=== PATIENT | female | born 1950 | race Caucasian/White ===

== ENCOUNTER → 2018-10-03 18:38 | Outpatient (CLI) | payer OTHER, SELFPAY ==
--- NOTE | 2018-10-03 18:41 | DI.RAD.S_ITS ---
PROCEDURE: XR WRIST RT MIN 3V INDICATIONS: right wrist pain TECHNIQUE: 4 views of the wrist were acquired. COMPARISON: None. FINDINGS: Bones: No fractures or dislocations. No suspicious bony lesions. There is mild degenerative joint disease at the first metacarpal joint. Scaphoid view: Scaphoid appears intact. Soft tissues: No suspicious soft tissue calcifications. Mild soft tissue swelling is noted. IMPRESSION: 1. No fracture or dislocation. If clinical symptoms persist or clinical suspicion for pathology is high, a repeat examination in 7-10 days, or advanced imaging such as CT or MRI is suggested for further evaluation. 2. Mild degenerative disease at the first carpal metacarpal joint. Dictated by: Janelle Hurley M.D. on 10/03/2018 at 18:53 Approved by: Janelle Hurley M.D. on 10/03/2018 at 18:56
== END ==
PROVIDERS: Family Provider Family Medicine; Visit Provider Physician Assistant
DX: M25.531 Pain in right wrist (principal); M18.11 Unilateral primary osteoarthritis of first carpometacarpal joint, right hand
CPT/HCPCS: 73110

== ENCOUNTER 2018-12-23 13:23 | Emergency (ER) | payer OTHER, SELFPAY ==
[2018-12-23 13:40] VITALS: BP 184/71; PULSE 51; RESP 18; TEMP 36.6; O2SAT 99; BMI 24.8
--- NOTE | 2018-12-23 13:43 | DI.RAD.S_ITS ---
PROCEDURE: XR WRIST LT MIN 3V INDICATIONS: LEFT ARM INJURY AND PAIN TECHNIQUE: 4 views of the wrist were acquired. COMPARISON: None. FINDINGS: Bones: There is a cortical irregularity and a subtle transverse lucency in the distal radial metaphysis suspicious for a nondisplaced fracture. No suspicious bony lesions. Scaphoid view: Scaphoid is intact Soft tissues: No suspicious soft tissue calcifications. IMPRESSION: 1. Suspect nondisplaced distal radial metaphyseal fracture. Dictated by: Janelle Hurley M.D. on 12/23/2018 at 14:07 Approved by: Janelle Hurley M.D. on 12/23/2018 at 14:10
--- NOTE | 2018-12-23 16:54 | DI.RAD.S_ITS ---
PROCEDURE: XR ELBOW LT MIN 3V INDICATIONS: pain distal radial fx TECHNIQUE: 3 views of the elbow were acquired. COMPARISON: None. FINDINGS: Bones: No fractures or dislocations. No suspicious bony lesions. Soft tissues: No elbow joint effusion. No suspicious soft tissue calcifications. IMPRESSION: Left elbow without acute osseous abnormalities. Dictated by: Kaiser Del Toro M.D. on 12/23/2018 at 17:27 Approved by: Kaiser Del Toro M.D. on 12/23/2018 at 17:28
--- NOTE | 2018-12-23 16:58 | ED_ITS ---
HPI - Extremity Injury (Upper) General Chief Complaint: Extremity Injury, Upper Stated Complaint: L ARM 'BROKEN' Time Seen by Provider: 12/23/18 16:47 Source: patient Mode of arrival: ambulatory Limitations: no limitations History of Present Illness HPI narrative: Patient is a 68-year-old female who tripped on a rolled up rug landing on her left wrist. She has no numbness or tingling. She does have a distal radius fracture identified on x-ray. He is able to move all of her fingers. No head injury no other injury. Related Data Home Medications Medication Instructions Recorded Confirmed furosemide 20 mg tablet 10 mg PO DAILY 10/03/18 12/23/18 magnesium 250 mg tablet 250 mg PO DAILY 10/03/18 10/03/18 pantoprazole 40 mg tablet,delayed 40 mg PO DAILY 10/03/18 12/23/18 release rifaximin 550 mg tablet 550 mg PO BID 10/03/18 12/23/18 simvastatin 40 mg tablet 40 mg PO BEDTIME 10/03/18 12/23/18 spironolactone 25 mg tablet 25 mg PO DAILY 10/03/18 12/23/18 nadolol 40 mg PO DAILY 12/23/18 12/23/18 Previous Rx's Medication Instructions Recorded diclofenac 1 % topical gel 2 gram TOP BID #100 gram 10/03/18 tramadol 50 mg PO Q6H PRN #10 tab 12/23/18 Allergies Allergy/AdvReac Type Severity Reaction Status Date / Time Penicillins Allergy Severe HIVES Verified 12/23/18 13:40 Review of Systems Review of Systems GENERAL: Denies chills,fever HEENT: Denies throat pain RESPIRATORY: Denies dyspnea, cough, wheezing CARDIOVASCULAR: Denies chest pain, palpitations GASTROINTESTINAL: Denies nausea, vomiting MUSCULOSKELETAL: See HPI SKIN: No rash, no laceration, no pruritus NEUROLOGIC: Denies weakness, dizziness, headache, numbness 8 point review of systems is negative except for those stated above and HPI PFSH Social History Smoking Status: Never smoker Social History Smoking Status: Never smoker Exam Initial Vital Signs Initial Vital Signs: Vital Signs Temperature 97.9 F 12/23/18 13:40 Pulse Rate 51 L 12/23/18 13:40 Respiratory Rate 18 12/23/18 13:40 Blood Pressure 184/71 H 12/23/18 13:40 Pulse Oximetry 99 12/23/18 13:40 GENERAL: Well-appearing, well-nourished and in no acute distress. HEAD: No sign of trauma CARDIOVASCULAR: peripheral pulses in tact, cap refill <2 sec RESPIRATORY: No respiratory distress, speaks in full sentences without difficulty EXTREMITIES: Normal range of motion, no clubbing or edema. Neurovascularly intact Left upper extremity: Pain distally minimal deformity distal radial pulse intact able to move all fingers. Some pain at elbow with pronation and supination. No clavicle shoulder abnormality. NEUROLOGICAL: Cranial nerves II through XII grossly intact. Normal gait and speech. SKIN: Warm, dry, no petechiae, no rashes or lesions. Procedures Orthopedic Splinting/Casting Injury #1: Side: left Upper Extremity Injury Location: wrist Upper Extremity Immobilizer: sugar tong splint Post splinting neuro exam: intact and no change Post splinting vascular exam: intact Placed by: Nursing Course Orders Ordered: ED Orders 12/23/18 13:43 XR wrist LT min 3V Stat 12/23/18 16:54 XR elbow LT min 3V Stat Vital Signs - 8 hr 12/23/18 13:40 12/23/18 17:36 Temperature 97.9 F Pulse Rate 51 L 55 L Respiratory Rate 18 14 Blood Pressure 184/71 H Blood Pressure [Right Arm] 196/77 H Pulse Oximetry 99 98 MDM - Extremity Injury (Upper) Imaging Data left wrist x-ray: Radiologist's impression: PROCEDURE: XR WRIST LT MIN 3V INDICATIONS: LEFT ARM INJURY AND PAIN TECHNIQUE: 4 views of the wrist were acquired. COMPARISON: None. FINDINGS: Bones: There is a cortical irregularity and a subtle transverse lucency in the distal radial metaphysis suspicious for a nondisplaced fracture. No suspicious bony lesions. Scaphoid view: Scaphoid is intact Soft tissues: No suspicious soft tissue calcifications. IMPRESSION: 1. Suspect nondisplaced distal radial metaphyseal fracture. Dictated by: Janelle Hurley M.D. on 12/23/2018 at 14:07 left elbow: Radiologist's impression: PROCEDURE: XR ELBOW LT MIN 3V INDICATIONS: pain distal radial fx TECHNIQUE: 3 views of the elbow were acquired. COMPARISON: None. FINDINGS: Bones: No fractures or dislocations. No suspicious bony lesions. Soft tissues: No elbow joint effusion. No suspicious soft tissue calcifications. IMPRESSION: Left elbow without acute osseous abnormalities. Dictated by: Kaiser Del Toro M.D. on 12/23/2018 at 17:27 Approved by: Kaiser Del Toro M.D. on 12/23/2018 at 17:28 Discharge Plan Departure Patient Disposition: Home Clinical Impression: Distal radial fracture Qualifiers: Encounter type: initial encounter Fracture type: closed Fracture morphology: other fracture Laterality: left Qualified Code(s): S52.592A - Other fractures of lower end of left radius, initial encounter for closed fracture Discharge Date/Time: 12/23/18 17:47 Interventions: ED Discharge Assessment Last Done: 12/23/18 17:46 Instructions: DI for Distal Radius Fracture Activity Restrictions/Additional Instructions: *You have been diagnosed with distal radial fracture *What to do: Keep splint on at all times. Wear sling as needed. Ice 20 this 30 min at a time. *Continue to take medications as directed Tramadol 1-2 tablets every 6 hr if needed for severe pain *Follow up with your primary care provider in 2-3 days follow up with Orthopedics, call Wednesday to schedule appointment in 1-2 weeks. *Return to ER if you should have increasing numbness, tingling, inability to move fingers or any new, worsening or concerning symptoms CONTROLLED SUBSTANCE DISCHARGE (Narcotoic/benzodiazepine/Flexeril/Phenergan) 1. You have been prescribed narcotic medications, it does have acetamin ophen/Tylenol/paracetamol in it so do not take extra Tylenol or Tylenol containing products 2. Please understand that we cannot provide further refills of narcotics, benzodiazepines or controlled substances through the ED and her pain management will need to be through your provider. 3. While on these medications you cannot drive or operate heavy machinery. 4. You cannot sign legal documents or perform any duties such as this. 5. As long as you're taking opiate pain medications he should also be taking a stool softener such as Colace, Dulcolax, MiraLAX or prune juice, to help avoid constipation. Prescriptions: New tramadol 50 mg tablet 50 mg PO Q6H PRN (Reason: pain) Qty: 10 RF: 0 No Action furosemide 20 mg tablet 10 mg PO DAILY RF: 0 magnesium 250 mg tablet 250 mg PO DAILY RF: 0 pantoprazole 40 mg tablet,delayed release (DR/EC) 40 mg PO DAILY RF: 0 rifaximin 550 mg tablet 550 mg PO BID RF: 0 spironolactone 25 mg tablet 25 mg PO DAILY RF: 0 simvastatin 40 mg tablet 40 mg PO BEDTIME RF: 0 diclofenac sodium 1 % gel 2 gram TOP BID Qty: 100 RF: 2 nadolol 40 mg tablet 40 mg PO DAILY RF: 0 Referrals: [facility] [Outside]
[2018-12-23 17:36] VITALS: BP 196/77; PULSE 55; RESP 14; O2SAT 98
== END 2018-12-23 17:47 | disposition home or self-care (01) ==
PROVIDERS: Emergency Provider Emergency Medicine; Family Provider Family Medicine
DX: S52.502A Unspecified fracture of the lower end of left radius, initial encounter for closed fracture (principal); W01.0XXA Fall on same level from slipping, tripping and stumbling without subsequent striking against object, initial encounter
CPT/HCPCS: 29125; 73080; 73110; 99283

== ENCOUNTER → 2019-04-12 10:53 | Outpatient (CLI) | payer OTHER, SELFPAY ==
[2019-04-12 12:40] LABS: Cholesterol 188 mg/dL (140-199); HDL Cholesterol 58 mg/dL (40-60); LDL Cholesterol Calculated 100 mg/dL (<100); Triglycerides 152 mg/dL (35-150)
== END ==
PROVIDERS: Family Provider Family Medicine; Visit Provider Internal Medicine Cardiovascular Disease
DX: E78.5 Hyperlipidemia, unspecified (principal)
CPT/HCPCS: 36415; 80061

== ENCOUNTER → 2019-05-05 15:06 | Outpatient (CLI) | payer OTHER, SELFPAY ==
--- NOTE | 2019-05-05 | DI.US.S_ITS ---
PROCEDURE: US CAROTID DOPPLER BI INDICATIONS: CARDIAC MURMUR TECHNIQUE: Color and pulse Doppler interrogation was performed of both carotid systems, with image documentation and velocity measurements. COMPARISON: [facility], [place], CAROTID ARTERY DOPPLER BILAT, 07/11/2012, 12:50. FINDINGS: Stenosis calculations are based on SRU (Society of Radiologists in Ultrasound) criteria. Right side: Brachial blood pressure: 137/59 mm Hg. Common carotid artery peak systolic velocity: 93 cm/sec. Internal carotid artery peak systolic velocity: 125 cm/sec. Internal carotid artery end diastolic velocity: 35 cm/sec. External carotid artery peak systolic velocity: 243 cm/sec. ICA/CCA peak systolic ratio: 1.4. Devlin scale imaging description: Moderate Percent internal carotid artery stenosis: 50-69% stenosis. Vertebral artery: Flow direction is antegrade. Left side: Brachial blood pressure: 145/63 mm Hg. Common carotid artery peak systolic velocity: 77 cm/sec. Internal carotid artery peak systolic velocity: 525 cm/sec. Internal carotid artery end diastolic velocity: 103 cm/sec. External carotid artery peak systolic velocity: 127 cm/sec. ICA/CCA peak systolic ratio: 6.8. Devlin scale imaging description: Heavy scattered plaque Percent internal carotid artery stenosis: 70% stenosis to near occlusion. Vertebral artery: Flow direction is antegrade. IMPRESSION: 1. 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 2. Progressive 50-69% right internal carotid artery stenosis which appears closer to 50%. Dictated by: Rufus Becerra [facility] Interpreted: Kuldip Montoya MD on 05/05/2019 at 16:45 Approved by: Kuldip Montoya M.D. on 05/08/2019 at 6:23
--- NOTE | 2019-05-05 | DI.ECHO.S_ITS ---
[facility]---------+ [facility] +---------+ : : [address] [place] : : : : [id number] : : : : Phone: [phone] Echocardiogram Report + + :Name: RUDDY GALVEZ Study Date: 05/05/2019 Height: 59 in : :[facility] Exam Location: IS Weight: 131 lb : : Gender: Female BSA: 1.5 m2 : :: 1950 Age: 68 yrs BP: 138/65 mmHg: :Reason For Study: MURMUR : : Performed By: Cirilo Dixon : :Referring: DILSHAD TAVAREZ : + + Interpretation Summary 1) Normal left ventricular size, wall motion, and systolic function (EF 60- 65%). 2) Normal right ventricular size and function. 3) There is moderate to severe aortic stenosis. 4) Mild to moderate mitral regurgitation and mild to moderate tricuspid regurgitation are present. 5) No prior Echo available for comparision. Procedure: A two-dimensional transthoracic echocardiogram with color flow and Doppler was performed. The study quality was technically adequate. There is no prior echocardiogram noted for this patient. The patient was in normal sinus rhythm during the exam. Left Ventricle: The left ventricle is normal in size. There is normal left ventricular wall thickness. The ejection fraction is estimated to be 60-65%. There are no focal wall motion abnormalities. Right Ventricle: The right ventricle is normal in size and function. Atria: The left atrium is moderately dilated. Right atrial size is normal. The interatrial septum is intact with no evidence for an atrial septal defect. Mitral Valve: There is mild mitral annular calcification. There is mild to moderate mitral regurgitation. Aortic Valve: The aortic valve is trileaflet. The aortic valve is moderately calcified. The peak aortic velocity is 2.57 m/sec. The aortic valve mean gradient is 17.7 mmHg. The calculated aortic valve area is 0.84 cm2. The aortic valve area is 1.0 centimeters squared by planimetry. There is moderate to severe aortic stenosis. There is trace aortic regurgitation. Tricuspid Valve: The tricuspid valve is normal in structure and function. There is mild to moderate tricuspid regurgitation. The right ventricular systolic pressure is estimated to be at least 34 mmHg based on an estimated right atrial pressure of 3 mm Hg. Pulmonic Valve: The pulmonic valve is normal in structure and function. There is trace pulmonic regurgitation. Great Vessels: The aortic root is normal size. The dimensions of the ascending aorta are normal. The pulmonary artery is normal size. The IVC is of normal diameter and collapses greater than 50% with a sniff. This suggests a low right atrial pressure of 3 mm Hg. Pericardium/ Pleura There is no pericardial effusion. There is no pleural effusion. MMode/2D Measurements & Calculations LVIDd: 4.0 cm LVOT diam: 2.0 cm LVIDs: 2.9 cm Ao root diam: 2.4 cm FS: 26.8 % Aortic Jxn: 2.1 cm EPSS: 0.57 cm asc Aorta Diam: 2.7 cm IVSd: 0.83 cm Ao Arch Diam (Prox Trans): 1.8 cm LVPWd: 0.93 cm LV langston. diameter/BSA (cm/m^2): 2.6 LV sys. diameter/BSA (cm/m^2): 1.9 LA dimension: 4.1 cm RA long axis: 4.5 cm LA A2 area: 20.3 cm2 RA area: 15.7 cm2 LA A4 area: 25.3 cm2 RA vol: 45.8 ml LA length (vol): 6.1 cm RA : 29.7 ml/m2 LA vol: 71.3 ml IVC diam: 1.6 cm LA vol index: 46.3 ml/m2 HERNAN (plan): 1.0 cm2 Doppler Measurements & Calculations Ao V2 max: 257.4 cm/sec LVOT Max Mina: 71.7 cm/sec Ao V2 mean: 204.0 cm/sec LV V1 max P.1 mmHg Ao max P.5 mmHg LV V1 VTI: 19.2 cm Ao mean P.7 mmHg HERNAN(I,D): 0.77 cm2 Ao V2 VTI: 75.4 cm HERNAN(V,D): 0.84 cm2 sev ratio: 0.25 HERNAN indexed to BSA (cm^2/m^2): 0.50 MV E max mina: 108.5 cm/sec TR max mina: 278.2 cm/sec MV A max mina: 90.0 cm/sec TR max P.0 mmHg MV E/A: 1.2 PA V2 max: 73.4 cm/sec Med Peak E' Mina: 2.8 cm/sec PA V2 mean: 58.1 cm/sec E/E' med: 38.9 PA mean P.4 mmHg Lat Peak E' Mina: 6.2 cm/sec PA pr(Accel): 42.4 mmHg E/E' lat: 17.5 PA Accel Time: 0.08 sec E/e' average: 28.2 MV dec time: 0.19 sec SVLVOT): 57.7 ml Reading Physician:10:22 PM
== END ==
PROVIDERS: Family Provider Family Medicine; PCP Family Medicine; Visit Provider Internal Medicine Cardiovascular Disease
DX: I08.3 Combined rheumatic disorders of mitral, aortic and tricuspid valves (principal); I65.23 Occlusion and stenosis of bilateral carotid arteries; R01.1 Cardiac murmur, unspecified
CPT/HCPCS: 93306; 93880

== ENCOUNTER → 2019-07-07 06:56 | Outpatient (CLI) | payer OTHER, SELFPAY ==
[2019-07-07 08:02] LABS: Alanine Aminotransferase 28 IU/L (9-52); Albumin 4.4 g/dL (3.5-5.0); Albumin Globulin Ratio 1.2 (1.0-2.8); Alkaline Phosphatase 94 U/L (38-126); Aspartate Aminotransferase 34 IU/L (14-36); BUN Creatinine Ratio 17.6 (6-22); Bilirubin Total 0.7 mg/dL (0.2-1.3); Blood Urea Nitrogen 30 mg/dL (7-17); Carbon Dioxide 28 mmol/L (22-32); Chloride 99 mmol/L (98-107); Cholesterol 192 mg/dL (140-199); Estimated Glomerular Filt Rate 29.9 mL/min (>60); Globulin 3.7 g/dL (1.7-4.1); Glucose 103 mg/dL (80-110); HDL Cholesterol 47 mg/dL (40-60); HEMOLYSIS < 15 (0-50); LDL Cholesterol Calculated 124 mg/dL (<100); Potassium 4.5 mmol/L (3.4-5.1); Sodium 137 mmol/L (137-145); Total Protein 8.1 g/dL (6.3-8.2); Triglycerides 105 mg/dL (35-150)
== END ==
PROVIDERS: PCP Family Medicine; Visit Provider Internal Medicine Cardiovascular Disease
DX: E78.5 Hyperlipidemia, unspecified (principal); K74.60 Unspecified cirrhosis of liver
CPT/HCPCS: 36415; 80053; 80061

== ENCOUNTER → 2019-08-22 08:36 | Outpatient (CLI) | payer OTHER, SELFPAY ==
[2019-08-22 09:29] LABS: BUN Creatinine Ratio 13.1 (6-22); Blood Urea Nitrogen 17 mg/dL (7-17); Calcium 9.4 mg/dL (8.4-10.2); Carbon Dioxide 28 mmol/L (22-32); Chloride 101 mmol/L (98-107); Estimated Glomerular Filt Rate 40.7 mL/min (>60); Glucose 99 mg/dL (80-110); HEMOLYSIS < 15 (0-50); Potassium 4.5 mmol/L (3.4-5.1); Sodium 136 mmol/L (137-145)
== END ==
PROVIDERS: Family Provider Family Medicine; PCP Family Medicine; Visit Provider Internal Medicine Cardiovascular Disease
DX: I10 Essential (primary) hypertension (principal)
CPT/HCPCS: 36415; 80048

== ENCOUNTER → 2019-08-24 07:39 | Outpatient (CLI) | payer OTHER, SELFPAY ==
--- NOTE | 2019-08-24 | DI.NM.S_ITS ---
PROCEDURE: NM FELICIA PERF SPECT R&S PHARM Rest and pharmacological stress myocardial perfusion SPECT with gated imaging and ejection fraction RADIOPHARMACEUTICAL: 25.2 mCi Tc-99m tetrafosmin IV at rest and 26.9 mCi Tc-99m tetrafosmin IV at peak effect of pharmacological stress. [id number] was performed. INDICATIONS: pre-op for CEA, stenosis of carotid arteries TECHNIQUE: Radiopharmaceutical was injected at peak stress test, and also at rest. SPECT images were obtained. SPECT myocardial perfusion images were displayed in short axis, horizontal long axis, and vertical long axis views. Gated images were reviewed using Upside software. COMPARISON: None. CARDIAC STRESS: A pharmacologic stress test was performed under the supervision of an attending staff, using an infusion of lexiscan. Patient did exercise for 7.0 METs but HR stayed at 70% of max predicted heart rate and study was switched to lexiscan. Hemodynamic data: There is normal blood pressure and heart rate response to pharmacologic stress. Symptoms: The patient denied anginal chest pain. Aminophylline: none EKG: Resting ECG shows sinus rhythm with mild diffuse ST depressions. No diagnostic changes of ischemia with exercise; no ectopy. FINDINGS: Raw data: There is good myocardial uptake of radiotracer. No significant motion artifacts. Left ventricle function: Gated images demonstrate normal left ventricular wall thickening. No segmental wall motion abnormalities. No transient ischemic dilation; TID is 0.91 (normal less than 1.3). Left ventricle resting end diastolic volume is 66mL. Left ventricle stress ejection fraction is 83%; normal range is above 45%. Myocardial perfusion: There is normal distribution of activity in the right and left ventricular myocardium. No fixed or reversible perfusion defects. IMPRESSION: Low risk, normal pharmaceutical nuclear stress. 1) No perfusion evidence of ischemia or infarction. 2) Normal left ventricular size, wall motion, and systolic function (EF post stress 83%). 3) No angina during the study. 4) No ECG evidence of ischemia. 5) Reduced exercise tolerance (7.0 METs). Study converted to lexiscan as onl 70% maximum predicted heart rate reached. 6) No prior nuclear stress test available for comparison. Dictated by: Aliyah Tavarez MD on 08/25/2019 at 15:14 Approved by: Aliyah Tavarez MD on 08/25/2019 at 15:18
--- NOTE | 2019-08-24 08:59 | PM.TREADMILL ---
Cardiac Stress Test Report Referral & Results Date Patient Seen: 08/24/19 Time Patient Seen: 08:30 Requesting provider: Aliyah Tavarez Indication: CAD of carotids Procedure Note: Today following both written and verbal informed consent the patient was exercised according to a standard Sunday protocol patient went for a total of 3 minutes achieving a maximum heart rate of 90. Exercise was terminated at this point because of fatigue. We converted to walking Lexiscan after it became apparent the patient would not be able to meet the target HR with exercise alone. The patient was placed on the treadmill at 1 mile an hour with no elevation and was then injected with the Imelda scan material. The Cardiolite was then immediately administered. The patient spent an additional 2-3 minutes on the treadmill before [facility] the supine position. The patient had a normal response to all infused materials. Impression: Successful Imelda protocol. Will await perfusion imaging. Please note: Actual ECG tracings can be found in the PACS system.
--- NOTE | 2019-08-24 09:30 | DI.CT.S_ITS ---
PROCEDURE: CT ANGIO NECK INDICATIONS: Occlusion and stenosis of carotid arteries TECHNIQUE: After the administration of intravenous contrast, 1.5 mm axial sections acquired from the aortic arch to the [place] of Ibrahim. Maximum intensity projection (MIP) reformats were then performed. COMPARISON: [facility], [place], [place] CAROTID DOPPLER BI, 05/05/2019, 15:47. [facility], [place], CAROTID ARTERY DOPPLER BILAT, 07/11/2012, 12:50. [facility], [place], HEAD WITHOUT CONTRAST, 07/10/2012, 12:24. FINDINGS: Image quality: Excellent. Carotid system: The great vessels demonstrate a conventional anatomy as they arise from the aortic arch. The origins of the common carotid arteries appear patent. The common carotid arteries demonstrate normal calibers and courses. There is advanced atherosclerotic irregularity with calcification seen involving bifurcation regions, left worse than right. Otherwise, there is approximately 95% stenosis seen proximally, with a long segment narrowing, as demonstrated on series 9 image 53. On the right, there is an approximately 70% stenosis seen proximally. Posterior circulation: The origins of the vertebral arteries appear patent. The more superior portions of the vertebral arteries demonstrate normal course and caliber. They join to form a normal appearing basilar artery. Soft tissues: Visualized neck soft tissues demonstrate no suspicious abnormalities. Thyroid gland demonstrates no significant CT abnormality. Bones: No suspicious bony lesions. Visualized cervical spine appears normally aligned. Mild degenerative changes are seen. IMPRESSION: There is a subtotal occlusion (approximately 95%) involving the left proximal internal carotid artery. Approximately 70% stenosis seen involving the right proximal internal carotid artery. Any quantitative stenosis measurements were performed using the NASCET criteria. Dictated by: Dimitris Vazquez M.D. on 08/24/2019 at 10:04 Approved by: Dimitris Vazquez M.D. on 08/24/2019 at 10:07
== END ==
LOC: RAD 07:39 → LAB 07:44
PROVIDERS: Family Provider Family Medicine; PCP Family Medicine; Referring Provider Student in an Organized Health Care Education/Training Program; Visit Provider Internal Medicine Cardiovascular Disease
DX: Z01.818 Encounter for other preprocedural examination (principal); I65.29 Occlusion and stenosis of unspecified carotid artery; E78.49 Other hyperlipidemia
CPT/HCPCS: 70498; 78452; 93016; 93017; 93018; A9502; J2785; Q9967

== ENCOUNTER → 2020-06-10 08:54 | Outpatient (CLI) | payer OTHER, SELFPAY ==
--- NOTE | 2020-06-10 | DI.ECHO.S_ITS ---
[facility]---------+ [facility] +---------+ : : [address] : [place] : : : : [id number] : : : : Phone: [phone]+ Echocardiogram Report + + :Name: RUDDY GALVEZ Study Date: 06/10/2020 Height: 59 in : :[facility] Weight: 135 lb : : Gender: Female BSA: 1.6 m2 : :: 1950 Age: 69 yrs BP: 125/59 mmHg: :Reason For Study: AORTIC STENOSIS : :Ordering Physician: Dilshad Morales : :[place] Performed By: Anisley Bhatti : :Referring: DILSHAD TAVAREZ : + + Interpretation Summary 1) Normal left ventricular size, wall motion, and systolic function (EF 60- 65%). 2) Normal right ventricular size and function. 3) There is moderate to severe aortic stenosis (valve area 0.8cm2, mean gradient 21mmHg, severity ratio 0.23). 4) Mild to moderate mitral regurgitation and mild to moderate tricuspid regurgitation are present. 5) Compared to the Echo done 05/05/2019, no significant change. Procedure: A two-dimensional transthoracic echocardiogram with color flow and Doppler was performed. The study quality was technically adequate. Comparison is made with the echocardiogram of 05/05/2019. The patient was in sinus bradycardia with heart rates between 64-44 bpm during the exam. Left Ventricle: The left ventricle is normal in size and wall thickness. The ejection fraction is estimated to be 60-65%. Right Ventricle: The right ventricle is normal in size and function. Atria: The left atrium is moderately dilated. The right atrium grossly appears normal in size. There is no Doppler evidence for an interatrial shunt. Mitral Valve: There is mild mitral annular calcification. There is mild to moderate mitral regurgitation. Aortic Valve: The aortic valve is moderately calcified. There is moderate to severe aortic stenosis. The peak aortic velocity is 2.9 m/sec. The aortic valve mean gradient is 21 mmHg. The calculated aortic valve area is .78 cm2. There is trace aortic regurgitation. Tricuspid Valve: The tricuspid valve is normal in structure and function. Pulmonary artery pressures cannot be estimated because of the lack of a measurable TR jet velocity but the IVC suggests a CVP of around 34 mmHg. There is mild to moderate tricuspid regurgitation. Pulmonic Valve: The pulmonic valve is not well seen, but is grossly normal. There is no pulmonic valvular regurgitation. Great Vessels: The aortic root is normal size. The ascending aorta is normal in size. The IVC is of normal diameter and collapses greater than 50% with a sniff. This suggests a low right atrial pressure of 3 mm Hg. Pericardium/ Pleura There is no pericardial effusion. There is no pleural effusion. MMode/2D Measurements & Calculations LVIDd: 3.9 cm LVOT diam: 2.0 cm LVIDs: 2.6 cm Ao root diam: 2.4 cm FS: 33.2 % asc Aorta Diam: 2.6 cm EPSS: 0.72 cm Ao Arch Diam (Prox Trans): 2.5 cm IVSd: 0.83 cm LVPWd: 0.88 cm LV langston. diameter/BSA (cm/m^2): 2.5 LV sys. diameter/BSA (cm/m^2): 1.7 LA A2 area: 20.4 cm2 RA long axis: 5.2 cm LA A4 area: 22.4 cm2 RA area: 17.1 cm2 LA length (vol): 5.8 cm RA vol: 47.9 ml LA vol: 66.4 ml RA : 30.7 ml/m2 LA vol index: 42.5 ml/m2 IVC diam: 1.3 cm RVD1 (basal): 3.1 cm TAPSE: 1.8 cm Doppler Measurements & Calculations Ao V2 max: 293.8 cm/sec LVOT Max Mina: 72.0 cm/sec Ao V2 mean: 220.7 cm/sec LV V1 max P.1 mmHg Ao max P.5 mmHg LV V1 VTI: 20.6 cm Ao mean P.9 mmHg HERNAN(I,D): 0.73 cm2 Ao V2 VTI: 89.8 cm HERNAN(V,D): 0.78 cm2 sev ratio: 0.23 HERNAN indexed to BSA (cm^2/m^2): 0.47 MV E max mina: 109.0 cm/sec TR max mina: 278.6 cm/sec MV A max mina: 95.1 cm/sec TR max P.0 mmHg MV E/A: 1.1 PA V2 max: 61.0 cm/sec Med Peak E' Mina: 3.5 cm/sec PA V2 mean: 43.5 cm/sec E/E' med: 30.8 PA mean P.83 mmHg Lat Peak E' Mina: 7.5 cm/sec PA pr(Accel): 19.1 mmHg E/E' lat: 14.5 E/e' average: 22.7 MV dec time: 0.19 sec SV(OT): 65.5 ml Reading Physician:12:22 PM
== END ==
PROVIDERS: Family Provider Family Medicine; PCP Family Medicine; Referring Provider Internal Medicine Cardiovascular Disease; Visit Provider Internal Medicine Cardiovascular Disease
DX: I08.3 Combined rheumatic disorders of mitral, aortic and tricuspid valves (principal)
CPT/HCPCS: 93306

== ENCOUNTER → 2021-09-19 09:38 | Outpatient (CLI) | payer OTHER, SELFPAY ==
--- NOTE | 2021-09-19 | DI.US.S_ITS ---
PROCEDURE: US CAROTID DOPPLER BI INDICATIONS: STENOSIS TECHNIQUE: Color and pulse Doppler interrogation was performed of both carotid systems, with image documentation and velocity measurements. COMPARISON: [facility], CT, CT ANGIO NECK, 08/24/2019, 8:26. [facility], US, CAROTID ARTERY DOPPLER BILAT, 07/11/2012, 12:50. [facility], , US CAROTID DOPPLER BI, 05/05/2019, 15:47. FINDINGS: Stenosis calculations are based on SRU (Society of Radiologists in Ultrasound) criteria. Right side: Brachial blood pressure: 106/49 mm Hg. Common carotid artery peak systolic velocity: 101 cm/sec (prior 93 cm/s). Internal carotid artery peak systolic velocity: 126 cm/sec (prior 125 cm/s). Internal carotid artery end diastolic velocity: 36 cm/sec (prior 35 cm/s). External carotid artery peak systolic velocity: 97 cm/sec (prior 243 cm/s). ICA/CCA peak systolic ratio: 1.2 (prior 1.4). Devlin scale imaging description: Mild atherosclerotic changes are seen. Percent internal carotid artery stenosis: 50-69% by velocity criteria. Vertebral artery: Flow direction is antegrade. Left side: Brachial blood pressure: 102/60 mm Hg. Common carotid artery peak systolic velocity: 141 cm/sec (prior 77 cm/s). Internal carotid artery peak systolic velocity: 132 cm/sec (prior 525 cm/s). Internal carotid artery end diastolic velocity: 40 cm/sec (prior 103 cm/s). External carotid artery peak systolic velocity: 94 cm/sec (prior 127 cm/s). ICA/CCA peak systolic ratio: 0.9 (prior 6.8). Devlin scale imaging description: Moderate atherosclerotic changes are seen. Carotid endarterectomy changes are seen. Percent internal carotid artery stenosis: 50-69% by velocity criteria. Vertebral artery: Flow direction is antegrade. IMPRESSION: Interval left carotid endarterectomy changes are seen. By velocity criteria, there is 50-69% stenosis seen involving both proximal internal carotid arteries. The true degree of stenosis is felt most likely to be at the lower end of this range on each side. Dictated by: Dimitris Vazquez M.D. on 09/19/2021 at 9:52 Approved by: Dimitris Vazquez M.D. on 09/19/2021 at 9:55
== END ==
PROVIDERS: Family Provider Family Medicine; PCP Family Medicine; Referring Provider Internal Medicine Cardiovascular Disease; Visit Provider Internal Medicine Cardiovascular Disease
DX: I65.23 Occlusion and stenosis of bilateral carotid arteries (principal)
CPT/HCPCS: 93880

== ENCOUNTER → 2021-12-01 10:59 | Outpatient (CLI) | payer OTHER, SELFPAY ==
--- NOTE | 2021-12-01 11:00 | DI.ECHO.S_ITS ---
[facility] +---------+ [facility] +---------+ : : [address] : : : : [place] : : : : [id number] : : : : Phone: [phone]---------+ Echocardiogram Report + + :Name: RUDDY GALVEZ Study Date: 12/01/2021 Height: 60 in : :[facility] ReadingLocation: Weight: 120 lb : : Gender: Female BSA: 1.5 m2 : :: 1950 Age: 71 yrs BP: 132/50 mmHg: :Reason For Study: S/P TAVR : :Ordering Physician: : :WAYNE Performed By: Doroteo Mendez : :Referring: DILSHAD TAVAREZ : + + Interpretation Summary 1) Normal left ventricular size, thickness, and systolic function (EF 55-60%) 2) The right ventricle is normal in size and function. 3) Bioprosthetic aortic valve is present and it opens well with expected gradient (mean 10mmHg). Mild - moderate perivalvular regurgitation 4) There is mild to moderate mitral regurgitation. 5) There is mild to moderate tricuspid regurgitation. 6) Compared to the Echo done 07/23/2021, stenotic aortic valve has been replaced with well functioning bioprosthetic aortic valve. Procedure: A two-dimensional transthoracic echocardiogram with color flow and Doppler was performed. The study quality was technically adequate. The subcostal views were difficult to obtain and are suboptimal in quality. Comparison is made with the echocardiogram of 07/23/2021. The patient was in normal sinus rhythm during the exam. Left Ventricle: The left ventricle is normal in size. There is borderline asymmetric left ventricular hypertrophy. The ejection fraction is estimated to be 55-60%. There are no obvious focal wall motion abnormalities noted but poor endocardial definition reduces the sensitivity for the detection of such. Right Ventricle: The right ventricle is normal in size and function. Atria: The left atrium is moderately dilated. Right atrial size is normal. There is no Doppler evidence for an interatrial shunt. Mitral Valve: The mitral valve leaflets appear mildly thickened, but open well. There is mild mitral annular calcification. There is a flat closure plane of the the mitral valve leaflets. There is mild to moderate mitral regurgitation. Aortic Valve: There is a bioprosthetic aortic valve. The peak aortic velocity is 2 m/sec. The aortic valve mean gradient is 10 mmHg. Mild - moderate perivalvular regurgitation. Tricuspid Valve: The tricuspid valve is normal. There is mild to moderate tricuspid regurgitation. The right ventricular systolic pressure is estimated to be at least 30 mmHg based on an estimated right atrial pressure of 3 mm Hg. Pulmonic Valve: The pulmonic valve leaflets are thin and pliable; valve motion is normal. There is a trace or physiologic amount of pulmonic regurgitation. Great Vessels: The ascending aorta is normal in size. The aortic arch is normal in size. The IVC is of normal diameter and collapses greater than 50% with a sniff. This suggests a low right atrial pressure of 3 mm Hg. Pericardium/ Pleura There is no pericardial effusion. There is an anterior echo-free space consistent with a fat pad. There is no pleural effusion. MMode/2D Measurements & Calculations LVIDd: 3.3 cm LVOT diam: 1.3 cm LVIDs: 2.3 cm asc Aorta Diam: 2.2 cm FS: 30.3 % Ao Arch Diam (Prox Trans): 2.1 cm IVSd: 0.70 cm LVPWd: 1.0 cm LV langston. diameter/BSA (cm/m^2): 2.2 LV sys. diameter/BSA (cm/m^2): 1.5 LA A2 area: 16.7 cm2 RA long axis: 4.2 cm LA A4 area: 20.1 cm2 LA length (vol): 5.2 cm LA vol: 54.8 ml LA vol index: 36.6 ml/m2 LVLs ap4: 5.0 cm LVLd ap2: 5.4 cm LVLs ap2: 4.8 cm TAPSE_phl: 2.0 cm Doppler Measurements & Calculations Ao V2 max: 203.0 cm/sec LVOT Max Mina: 85.5 cm/sec Ao V2 mean: 157.0 cm/sec LV V1 max P.9 mmHg Ao max P.0 mmHg LV V1 VTI: 21.6 cm Ao mean P.0 mmHg HERNAN(I,D): 0.55 cm2 Ao V2 VTI: 51.8 cm HERNAN(V,D): 0.56 cm2 sev ratio: 0.42 HERNAN indexed to BSA (cm^2/m^2): 0.37 MV E max mina: 114.0 cm/sec TR max mina: 259.3 cm/sec MV A max mina: 108.0 cm/sec TR max P.9 mmHg MV E/A: 1.1 PA V2 max: 71.1 cm/sec Med Peak E' Mina: 7.4 cm/sec PA V2 mean: 53.6 cm/sec E/E' med: 15.5 PA mean P.0 mmHg Lat Peak E' Mina: 8.3 cm/sec PA pr(Accel): 14.2 mmHg E/E' lat: 13.7 E/e' average: 14.6 MV dec time: 0.21 sec SV(LVOT): 28.7 ml AV VR_phl: 0.42 HERNAN(VTI)/BSA_phl: 0.37 MV P1/2t-pr_phl: 62.0 msec Reading Physician:12:02 PM
== END ==
PROVIDERS: Family Provider Family Medicine; PCP Family Medicine; Referring Provider Internal Medicine Cardiovascular Disease; Visit Provider Internal Medicine Cardiovascular Disease
DX: Z95.2 Presence of prosthetic heart valve (principal); I08.3 Combined rheumatic disorders of mitral, aortic and tricuspid valves
CPT/HCPCS: 93306

== ENCOUNTER 2022-06-15 08:30 | Outpatient (RCR) | payer OTHER, SELFPAY | END 2022-06-15 12:30 | LOC: CAR 08:30 | PROVIDERS: Family Provider Family Medicine; PCP Family Medicine; Referring Provider Internal Medicine Cardiovascular Disease; Visit Provider Internal Medicine Cardiovascular Disease | DX: Z95.2 Presence of prosthetic heart valve (principal) | CPT/HCPCS: 93798 ==

== ENCOUNTER → 2023-04-28 11:34 | Outpatient (CLI) | payer OTHER, SELFPAY ==
--- NOTE | 2023-04-28 | DI.US.S_ITS ---
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 COMPARISON: [facility], , CAROTID DOPPLER BI, 09/19/2021, 9:44. FINDINGS: Stenosis calculations are based on SRU (Society of Radiologists in Ultrasound) criteria. Right side: Brachial blood pressure: 130/47 mm Hg. Common carotid artery peak systolic velocity: 98 cm/sec. Internal carotid artery peak systolic velocity: 180 cm/sec, compared to 126 centimeters/second. Internal carotid artery end diastolic velocity: 41 cm/sec. External carotid artery peak systolic velocity: 153 cm/sec. ICA/CCA peak systolic ratio: 1.9 . Devlin scale imaging description: Moderate plaque at the bifurcation Percent internal carotid artery stenosis: 50-69% stenosis . Vertebral artery: Flow direction is antegrade. Left side: Brachial blood pressure: 115/51 mm Hg. Common carotid artery peak systolic velocity: 157 cm/sec. Internal carotid artery peak systolic velocity: 125 cm/sec., compared to 132 centimeters/second Internal carotid artery end diastolic velocity: 21 cm/sec. External carotid artery peak systolic velocity: 143 cm/sec. ICA/CCA peak systolic ratio: 0.8 . Devlin scale imaging description: Moderate plaque at bifurcation Percent internal carotid artery stenosis: 50-60% stenosis . Vertebral artery: Flow direction is antegrade. IMPRESSION: 50-69% stenosis of the internal carotid arteries bilaterally. Although stenosis range is unchanged, there has been notable interval increased velocity on the right. Dictated by: Celena Winn M.D. on 04/28/2023 at 21:34 Approved by: Celena Winn M.D. on 04/28/2023 at 21:35
== END ==
PROVIDERS: Family Provider Family Medicine; PCP Family Medicine; Referring Provider Internal Medicine Cardiovascular Disease; Visit Provider Internal Medicine Cardiovascular Disease
DX: I65.23 Occlusion and stenosis of bilateral carotid arteries (principal)
CPT/HCPCS: 93880

== ENCOUNTER 2023-07-26 15:55 | Emergency (ER) | payer OTHER, SELFPAY ==
[2023-07-26 16:02] VITALS: BP 172/72; PULSE 70; RESP 20; TEMP 36.8; O2SAT 99; BMI 24.2
--- NOTE | 2023-07-26 16:02 | DI.CT.S_ITS ---
PROCEDURE: CT HEAD/BRAIN WO CON INDICATIONS: Fall not on blood thinners but has head LAC TECHNIQUE: Noncontrast 4.5 mm thick angled axial sections acquired from the foramen magnum to the vertex, with coronal and sagittal reformats. For radiation dose reduction, the following was used: automated exposure control, adjustment of mA and/or kV according to patient size. COMPARISON: [facility], CT, HEAD WITHOUT CONTRAST, 07/10/2012, 12:24. FINDINGS: Image quality: Excellent. CSF spaces: Basal cisterns are patent. No extra-axial fluid collections. The ventricles are symmetric in size and shape. Brain: No intracranial bleeds or masses. There is cerebral volume loss for age, with resultant ventricular and sulcal prominence. There are periventricular and deep white matter chronic small vessel ischemic changes. There is intracranial internal carotid artery atherosclerosis. Skull and face: Calvarium and visualized facial bones appear intact, without suspicious lesions. Lens replacements. Frontal scalp contusion. No underlying fracture. Sinuses: Visualized sinuses and mastoids are clear. IMPRESSION: No acute intracranial abnormalities. Dictated by: Ryan Veronica M.D. on 07/26/2023 at 16:52 Approved by: Ryan Veronica M.D. on 07/26/2023 at 16:53
--- NOTE | 2023-07-26 16:02 | DI.CT.S_ITS ---
PROCEDURE: CT CERVICAL SPINE WO CON INDICATIONS: fall TECHNIQUE: Noncontrast 3 mm thick sections acquired from the skull base to the T4 level. Sagittal and coronal reformats were then constructed. For radiation dose reduction, the following was used: automated exposure control, adjustment of mA and/or kV according to patient size. COMPARISON: None. FINDINGS: Image quality: Excellent. Bones: No fractures or dislocations. Decreased osseous mineralization. Mild multilevel degenerative changes of the cervical spine. Visualized superior ribs are intact. Soft tissues: Prevertebral soft tissues are normal in thickness. No paravertebral hematomas. No apical pneumothoraces. Atherosclerotic vascular calcifications. IMPRESSION: No acute fracture or traumatic listhesis. Dictated by: Ryan Veronica M.D. on 07/26/2023 at 16:54 Approved by: Ryan Veronica M.D. on 07/26/2023 at 16:55
--- NOTE | 2023-07-26 16:02 | DI.RAD.S_ITS ---
PROCEDURE: XR THORACIC SPINE 3V INDICATIONS: Midthoracic back pain after fall TECHNIQUE: 3 views of the thoracic spine were acquired. COMPARISON: CT 11/23/2022. FINDINGS: Bones: Diffusely decreased osseous mineralization. Redemonstration of compression deformities involving the T10 and T12 vertebral bodies as well as the upper lumbar spine vertebral bodies. Mild compression overly the T5 vertebral body that was not seen on CT from 11/23/2022 No suspicious bony lesions. 12 pairs of ribs are noted, and appear intact where visualized. Multilevel degenerative changes with disc height loss, endplate sclerosis and marginal spurring. Soft tissues: No paravertebral stripe thickening. Atherosclerotic vascular calcifications. IMPRESSION: 1. Mild compression deformity of T5 which is new compared to 11/23/2022. Recommend correlation with point tenderness. MRI can be obtained if clinically indicated. 2. Redemonstration of other lower thoracic and upper lumbar compression deformities. 3. Multilevel degenerative changes of the thoracic spine. Dictated by: Ryan Veronica M.D. on 07/26/2023 at 16:48 Approved by: Ryan Veronica M.D. on 07/26/2023 at 16:51
--- NOTE | 2023-07-26 16:04 | ED_ITS ---
HPI - General Adult General Chief complaint: Fall Stated complaint: Fall Time Seen by Provider: 07/26/23 15:56 Source: patient and EMS Mode of arrival: EMS Limitations: no limitations History of Present Illness HPI narrative: Patient is a 73-year-old female who is here for evaluation of injuries that she sustained after falling off the toilet. Patient states she did have alcohol to drink this afternoon. It seems to be baseline for her. She is unsure exactly how she fell but she was getting up off the toilet she fell forward and hitting the top of her head on the bathtub. Initially there was reported to be no loss of consciousness but now the patient thinks that maybe she lost consciousness for a short period of time. She reports no other injuries from the event. She is no neck pain. She does have some thoracic back pain. She is not on blood thinners. She is alert and oriented. She actually ambulated out of her house to the ambulance. Related Data Home Medications Medication Instructions Recorded Confirmed furosemide 20 mg tablet 10 mg PO DAILY 10/03/18 12/23/18 magnesium 250 mg tablet 250 mg PO DAILY 10/03/18 10/03/18 pantoprazole 40 mg tablet,delayed 40 mg PO DAILY 10/03/18 12/23/18 release rifaximin 550 mg tablet 550 mg PO BID 10/03/18 12/23/18 simvastatin 40 mg tablet 40 mg PO BEDTIME 10/03/18 12/23/18 spironolactone 25 mg tablet 25 mg PO DAILY 10/03/18 12/23/18 nadolol 40 mg tablet 40 mg PO DAILY 12/23/18 12/23/18 Previous Rx's Medication Instructions Recorded diclofenac sodium 1 % topical gel 2 gram topical BID #100 grams 10/03/18 tramadol 50 mg tablet 50 mg PO Q6H PRN pain #10 tabs 12/23/18 Allergies Allergy/AdvReac Type Severity Reaction Status Date / Time Penicillins Allergy Severe HIVES Verified 12/23/18 13:40 Review of Systems Constitutional Constitutional: Reports system reviewed and no additional complaints, except as documented Musculoskeletal Musculoskeletal: Reports system reviewed and no additional complaints, except as documented Integumentary/Breasts Skin/Breast: Reports system reviewed and no additional complaints, except as documented Neurologic Neurologic: Reports system reviewed and no additional complaints, except as documented Hematologic/Lymphatic On Anticoagulants: No Patient History Social History Smoking Status: Never smoker Smoking Status: Never smoker Substance Use Type: does not use Exam Initial Vital Signs Initial Vital Signs: Vital Signs Temperature 98.3 F 07/26/23 16:02 Pulse Rate 70 07/26/23 16:02 Respiratory Rate 20 07/26/23 16:02 Blood Pressure 172/72 H 07/26/23 16:02 Pulse Oximetry 99 07/26/23 16:02 Oxygen Delivery Method Room Air 07/26/23 16:02 Const General: cooperative and comfortable HENMT Head: laceration Mouth: oral mucosae normal Resp Effort & Inspection: normal respiratory effort Auscultation: clear to auscultation bilaterally Cardio Rate: regular rate Rhythm: regular rhythm Back/Spine/Pelvis Back: No CVA tenderness Cervical Spine: No cervical spinal tenderness Thoracic/Lumbar Spine: thoracic spinal tenderness (Midthoracic tenderness) Skin Other: Laceration to top of scalp. Neuro General: patient alert, patient awake, patient oriented x3 and moves all extremities Speech: speech normal Extrem General: normal to inspection and capillary refill normal Procedures Laceration Repair Laceration 1: Site: scalp Size (cm): 1 Description: linear Depth: simple, single layer Local Anesthetic: lidocaine 1% and with epi Amount of anesthesia used (mL): 3 Skin layer closed with: latoya Course Orders Ordered: ED Orders 07/26/23 16:02 CT cervical spine wo con Stat CT head/brain wo con Stat XR thoracic spine 3V Stat Discontinued Medications Lidocaine/Epinephrine (Lidocaine 2% W/Epi Inj) 20 ml INJ INTRA-OP ONE Stop: 07/26/23 15:57 Last Admin: 07/26/23 16:22 Dose: 20 ml Vital Signs Vital signs: Vital Signs - 8 hr 07/26/23 16:02 Temperature 98.3 F Pulse Rate 70 Respiratory Rate 20 Blood Pressure 172/72 H Pulse Oximetry 99 Oxygen Delivery Method Room Air Medical Decision Making Imaging Data x ray: Radiologist's Impression: PROCEDURE:? XR THORACIC SPINE 3V ? INDICATIONS:? Midthoracic back pain after fall ? TECHNIQUE:? 3 views of the thoracic spine were acquired.? ? COMPARISON:? CT 11/23/2022. ? FINDINGS:? ? Bones:? Diffusely decreased osseous mineralization.? Redemonstration of compression deformities involving the T10 and T12 vertebral bodies as well as the upper lumbar spine vertebral bodies.? Mild compression overly the T5 vertebral body that was not seen on CT from 11/23/2022? No suspicious bony lesions.? 12 pairs of ribs are noted, and appear intact where visualized.? Multilevel degenerative changes with disc height loss, endplate sclerosis and marginal spurring.? ? Soft tissues:? No paravertebral stripe thickening.? Atherosclerotic vascular calcifications. ? ? IMPRESSION:? ? 1. Mild compression deformity of T5 which is new compared to 11/23/2022.? Recommend correlation with point tenderness.? MRI can be obtained if clinically indicated. 2. Redemonstration of other lower thoracic and upper lumbar compression deformities. 3. Multilevel degenerative changes of the thoracic spine. CT scan - head: Radiologist's Impression: PROCEDURE:? CT HEAD/BRAIN WO CON ? INDICATIONS:? Fall not on blood thinners but has head LAC ? TECHNIQUE:? Noncontrast 4.5 mm thick angled axial sections acquired from the foramen magnum to the vertex, with coronal and sagittal reformats.? For radiation dose reduction, the following was used:? automated exposure control, adjustment of mA and/or kV according to patient size.? ? COMPARISON:? [facility], CT, HEAD WITHOUT CONTRAST, 07/10/2012, 12:24. ? FINDINGS:? Image quality:? Excellent.? ? CSF spaces:? Basal cisterns are patent.? No extra-axial fluid collections.? The ventricles are symmetric in size and shape.? ? Brain:? No intracranial bleeds or masses.? There is cerebral volume loss for age, with resultant ventricular and sulcal prominence.? There are periventricular and deep white matter chronic small vessel ischemic changes.? There is intracranial internal carotid artery atherosclerosis.? ? Skull and face:? Calvarium and visualized facial bones appear intact, without suspicious lesions.? Lens replacements.? Frontal scalp contusion.? No underlying fracture. ? Sinuses:? Visualized sinuses and mastoids are clear.? ? IMPRESSION:? No acute intracranial abnormalities. CT - cervical spine: Radiologist's Impression: PROCEDURE:? CT CERVICAL SPINE WO CON ? INDICATIONS:? fall ? TECHNIQUE:? Noncontrast 3 mm thick sections acquired from the skull base to the T4 level.? Sagittal and coronal reformats were then constructed.? For radiation dose reduction, the following was used:? automated exposure control, adjustment of mA and/or kV according to patient size.? ? COMPARISON:? None. ? FINDINGS:? Image quality:? Excellent.? ? Bones:? No fractures or dislocations.? Decreased osseous mineralization.? Mild multilevel degenerative changes of the cervical spine.? Visualized superior ribs are intact.? ? Soft tissues:? Prevertebral soft tissues are normal in thickness.? No paravertebral hematomas.? No apical pneumothoraces.? Atherosclerotic vascular calcifications. ? ? IMPRESSION:? ? No acute fracture or traumatic listhesis. MDM Narrative Medical decision making narrative: You can shower like normal. Be c areful when your combing her hair has there are latoya She does have a compression fracture at T5 where she is having some discomfort to palpation. She was neurovascularly intact. Head CT and cervical spine CT unremarkable. Her head like was closed as described above. Will discharge patient home with care instructions and return precautions. She was informed of the injuries noted on the radiologic studies. She was. She expressed understanding and agreement. Discharge Plan Departure Patient Disposition: Home Clinical Impression: Laceration of scalp, Forehead contusion, Compression fracture of T5 vertebra Instructions: Vertebral Compression Fracture, DI for Laceration Repair -- Stuart Activity Restrictions/Additional Instructions: You can continue to take all of your medications as directed. You can shower like normal. You do have latoya in your scalp that will need to be removed in approximately 7-10 days. You can go to your primary doctor in the walk-in clinic for this. Return to the emergency department for new or worsening symptoms Prescriptions: No Action furosemide 20 mg tablet 10 mg PO DAILY magnesium 250 mg tablet 250 mg PO DAILY pantoprazole 40 mg tablet,delayed release (DR/EC) 40 mg PO DAILY rifaximin 550 mg tablet 550 mg PO BID spironolactone 25 mg tablet 25 mg PO DAILY simvastatin 40 mg tablet 40 mg PO BEDTIME diclofenac sodium 1 % gel 2 gram TOP BID Qty: 100 2RF Rx Instructions: apply to single wrist nadolol 40 mg tablet 40 mg PO DAILY tramadol 50 mg tablet 50 mg PO Q6H PRN (Reason: pain) Qty: 10 0RF Referrals: Tanya Escalante MD [Primary Care Provider] - Stand Alone Forms: Patient Portal/API
[2023-07-26] MEDS: LIDOCAINE 2% W/EPI INJ 20 ML INJ (16:22)
== END 2023-07-26 17:38 | disposition home or self-care (01) ==
PROVIDERS: Emergency Provider Emergency Medicine; Family Provider Family Medicine; PCP Family Medicine
DX: S01.01XA Laceration without foreign body of scalp, initial encounter (principal); S00.83XA Contusion of other part of head, initial encounter; S22.059A Unspecified fracture of T5-T6 vertebra, initial encounter for closed fracture; W18.12XA Fall from or off toilet with subsequent striking against object, initial encounter
CPT/HCPCS: 12001; 70450; 72072; 72125; 99283; 99284

== ENCOUNTER 2023-09-16 06:59 | Emergency (ER) | payer OTHER, SELFPAY ==
[2023-09-16] VITALS (18 sets, daily range): BP systolic 101–199; BP diastolic 54–78; PULSE 60–72; RESP 12–22; TEMP 36.4; O2SAT 94–98; BMI 24.2
--- NOTE | 2023-09-16 07:10 | ED_ITS ---
HPI - Fall General Chief Complaint: Fall Stated Complaint: GLF Time Seen by Provider: 09/16/23 07:04 Source: patient, EMS, RN notes reviewed and old records reviewed Mode of arrival: EMS Limitations: no limitations History of Present Illness HPI Narrative: 73-year-old female with history of prior stroke/TIA, valve replacement, dyslipidemia, chronic liver failure with complaint of possible fall last night. Patient does not recall falling. She reportedly fell or ended up on the floor around 6:30 p.m. was assisted off of the floor around 9:30 p.m. by a family member who found her. Patient does not recall she says she has had falls recently. She has bruising on her forehead, complaints of pain over her right ribs and left ankle. She notes she had a fall with compression fracture in her back recently and states that feels the same. Patient denies any blood thinners. She does not recall how she fell or ended up on the floor. She denies any headache, she states no neck or midline back pain unless touched. She denies any shortness of breath. She has some right rib pain. Denies any vomiting but did have nausea in route with EMS. Denies any new urinary symptoms but states she normally wears briefs. She states she did have a bowel movement in her brief the way here today. She denies any black or bloody stools. She states no weakness in her extremities or numbness or tingling. She notes her left ankle is quite painful but has discomfort in both ankles knees. Patient is unsure of her home medications. She states she is allergic to penicillin. She states she did have a valve replacement in the past. Denies any tobacco, current alcohol or recreational drugs. She states she lives independently but has family around. Patient received 4 mg of Zofran and 25 mcg of fentanyl EN route. Related Data Home Medications Medication Instructions Recorded Confirmed furosemide 20 mg tablet 10 mg PO DAILY 10/03/18 12/23/18 magnesium 250 mg tablet 250 mg PO DAILY 10/03/18 10/03/18 pantoprazole 40 mg tablet,delayed 40 mg PO DAILY 10/03/18 12/23/18 release rifaximin 550 mg tablet 550 mg PO BID 10/03/18 12/23/18 simvastatin 40 mg tablet 40 mg PO BEDTIME 12/10/18 03/01/19 spironolactone 25 mg tablet 25 mg PO DAILY 10/03/18 12/23/18 nadolol 40 mg tablet 40 mg PO DAILY 12/23/18 12/23/18 Previous Rx's Medication Instructions Recorded diclofenac sodium 1 % topical gel 2 gram topical BID #100 grams 10/03/18 tramadol 50 mg tablet 50 mg PO Q6H PRN pain #10 tabs 12/23/18 nitrofurantoin 100 mg PO Q12H 5 days #10 caps 09/16/23 monohydrate/macrocrystals 100 mg capsule (Macrobid) ondansetron 4 mg disintegrating 4 mg PO Q6H PRN nausea and 09/16/23 tablet vomiting #10 tabs oxycodone 5 mg tablet 5 mg PO Q6H PRN pain #14 tabs 09/16/23 Allergies Allergy/AdvReac Type Severity Reaction Status Date / Time Penicillins Allergy Severe HIVES Verified 12/23/18 13:40 Review of Systems Review of Systems ROS Unobtainable: All systems reviewed & are unremarkable except as noted in HPI and below Patient History Social History Smoking Status: Never smoker Smoking Status: Never smoker alcohol intake frequency: a few times a week Alcohol type: hard liquor Substance Use Type: does not use Exam Narrative Exam Narrative: GEN: Patient appears in mild distress. HEAD: Patient has hematoma on the right forehead no raccoon/White sign. NECK: Nontender, painless range of motion, trachea midline , Nexus criteria, no midline line tenderness, distracting injury, altered mental status, neuro deficit, unsure about recent EtOH. EYES: PERRLA, EOMI ENT: External inspection normal other than above, trachea is midline, TM's are normal no hemotypanum, Nares are clear, no septal hematoma, no dental or oral injury, airway is normal and with normal occlusion, No bony tenderness RESP: Chest is right lateral ribs 7 8 region are tender and has symmetric movement, no ecchymosis, breath sounds are normal no crackles, wheezes or rales CVS: Heart sounds are normal, no murmur noted, No JVD. ABG/GI: Nontender, soft, normal bowel sounds, no distention, no organomegaly, pelvic rock is negative NEURO: Oriented AOx3, neuro is grossly intact, sensation and motor is normal all 4 extremities moving, cranial nerves II through XII are intact, GCS is 15 PSYCH: Normal mood and affect SKIN: Intact, warm and dry, no crepitus and without decubitus, patient has a small amount of bruising over the right scapula. BACK: Positive for T5-6 mild CVA tenderness, no vertebral tenderness, no step- off's, no crepitus, no pain with range of motion. EXT: Left ankle is without deformity but swollen, tender over the lateral medial malleoli with some slight inversion of the foot, left knee, hip and right lower extremity are nontender with full range of motion of both lower extremities. No upper extremity tenderness, normal range of motion. Hips are nontender, no pedal edema, normal color and temperature, Initial Vital Signs Initial Vital Signs: Vital Signs Pulse Rate 62 09/16/23 07:04 Pulse Oximetry 95 09/16/23 07:[address] [place] [address] Head Rule Age greater or equal to 65 years: Yes Retrograde amnesia to the event greater or equal to 30 min: Yes (doesn't recall event) GCS Gabo coma scale eye opening: Spontaneous Gabo coma scale verbal response: Orientated Gabo coma scale motor response: Obey commands Gabo coma scale total score: 15 Nexus Score for C-Spine Focal Neurologic deficit present: No Midline spinal tenderness present: No Altered level of conciousness present: No Intoxication present: No Distracting Injury Present: No Nexus Criteria for C-spine: 0 Course Orders Ordered: ED Orders 09/16/23 07:16 XR ankle LT min 3V Stat EKG-12 Lead Stat 09/16/23 07:17 CT cervical spine wo con Stat CT chest abd pel w con Stat CT head/brain wo con Stat 09/16/23 07:19 Chest [XR chest 1V] Stat 09/16/23 07:27 Consult to [facility] [place] [facility] Stat 09/16/23 07:42 Complete Blood Count AUTO DIFF Stat Comprehensive Metabolic Panel Stat Ethanol (ETOH) Stat Lactate (Lactic Acid) Stat Lipase Stat PTT Partial Thromboplastin Isaiah Stat Prothrombin Time INR Stat Troponin & CK Cardiac Panel Stat 09/16/23 10:56 UA Complete [Urinalysis and Microscopic] Stat Urine Culture Stat Urine Drug Screen, Rapid Stat Oxycodone HCl (Oxycodone Ir 5 Mg Tablet) 5 mg PO Q4HR Stop: 11/23/23 23:59 Discontinued Medications Sodium Chloride (Normal Saline 0.9%) 1,000 mls @ 1,000 mls/hr IV BOLUS ONE Stop: 09/16/23 11:31 Last Infusion: 09/16/23 11:55 Dose: Infused Documented By: Admin: 09/16/23 10:48 Dose: 1,000 mls/hr Documented By: APRIL Morphine Sulfate (Morphine 4 Mg/Ml Inj) 4 mg IV NOW ONE Stop: 09/16/23 07:41 Last Admin: 09/16/23 07:45 Dose: 4 mg Documented By: APRIL Nitrofurantoin Macrocrystals (Nitrofurantoin Er 100 Mg Capsule) 100 mg PO NOW ONE Stop: 09/16/23 11:17 Last Admin: 09/16/23 12:11 Dose: 100 mg Documented By: APRIL Nitrofurantoin Macrocrystals (Nitrofurantoin Er 100 Mg Capsule) 100 mg PO NOW ONE Stop: 09/16/23 12:45 Last Admin: 09/16/23 13:00 Dose: 100 mg Documented By: APRIL Ondansetron HCl (Ondansetron 4 Mg Odt Prepack) 1 bottle MISC DIRECTED ONE Stop: 09/16/23 12:26 Last Admin: 09/16/23 12:44 Dose: 1 bottle Documented By: APRIL Oxycodone HCl (Oxycodone Ir 5 Mg Tablet) 5 mg PO NOW ONE Stop: 09/16/23 08:51 Last Admin: 09/16/23 09:32 Dose: 5 mg Documented By: APRIL Vital Signs Vital signs: Vital Signs - 8 hr 09/16/23 08:06 09/16/23 10:24 09/16/23 10:24 Pulse Rate 68 64 Pulse Rate [Orthostatic Sitting] Pulse Rate [Orthostatic Standing] Respiratory Rate 19 Blood Pressure 117/57 L Blood Pressure [Orthostatic Sitting] Blood Pressure [Orthostatic Standing] Pulse Oximetry 97 Oxygen Delivery Method Room Air 09/16/23 10:27 09/16/23 10:27 09/16/23 10:43 Pulse Rate 66 64 Pulse Rate [Orthostatic Sitting] Pulse Rate [Orthostatic Standing] Respiratory Rate 21 Blood Pressure 101/54 L Blood Pressure [Orthostatic Sitting] Blood Pressure [Orthostatic Standing] Pulse Oximetry Oxygen Delivery Method 09/16/23 10:45 09/16/23 10:46 09/16/23 10:46 Pulse Rate 64 63 Pulse Rate [Orthostatic Sitting] Pulse Rate [Orthostatic Standing] Respiratory Rate 22 Blood Pressure 199/78 H Blood Pressure [Orthostatic Sitting] Blood Pressure [Orthostatic Standing] Pulse Oximetry 97 Oxygen Delivery Method Room Air 09/16/23 10:49 09/16/23 10:49 09/16/23 11:00 Pulse Rate 63 65 Pulse Rate [Orthostatic Sitting] Pulse Rate [Orthostatic Standing] Respiratory Rate 20 16 Blood Pressure 173/73 H Blood Pressure [Orthostatic Sitting] Blood Pressure [Orthostatic Standing] Pulse Oximetry 98 96 Oxygen Delivery Method Room Air 09/16/23 11:00 09/16/23 11:12 09/16/23 11:30 Pulse Rate 68 Pulse Rate [Orthostatic Sitting] 64 Pulse Rate [Orthostatic Standing] 66 Respiratory Rate 18 Blood Pressure 154/68 H Blood Pressure [Orthostatic Sitting] 117/57 L Blood Pressure [Orthostatic Standing] 101/54 L Pulse Oximetry 95 Oxygen Delivery Method 09/16/23 11:31 09/16/23 11:31 09/16/23 12:00 Pulse Rate 69 72 Pulse Rate [Orthostatic Sitting] Pulse Rate [Orthostatic Standing] Respiratory Rate 21 20 Blood Pressure 133/59 L Blood Pressure [Orthostatic Sitting] Blood Pressure [Orthostatic Standing] Pulse Oximetry 94 97 Oxygen Delivery Method Room Air Room Air 09/16/23 12:00 09/16/23 12:30 09/16/23 12:31 Pulse Rate 69 69 Pulse Rate [Orthostatic Sitting] Pulse Rate [Orthostatic Standing] Respiratory Rate 15 17 Blood Pressure 157/66 H Blood Pressure [Orthostatic Sitting] Blood Pressure [Orthostatic Standing] Pulse Oximetry 94 95 Oxygen Delivery Method Room Air 09/16/23 12:31 Pulse Rate Pulse Rate [Orthostatic Sitting] Pulse Rate [Orthostatic Standing] Respiratory Rate Blood Pressure 137/61 Blood Pressure [Orthostatic Sitting] Blood Pressure [Orthostatic Standing] Pulse Oximetry Oxygen Delivery Method MDM - Fall Lab Data 09/16/23 07:42 09/16/23 07:42 Labs: Lab Results 09/16/23 09/16/23 Range/Units 07:42 10:56 WBC 13.5 H (4.5-11.0) X10^3/uL RBC 3.71 L (4.0-5.2) X10^6/uL Hgb 11.7 L (12.0-16.0) g/dL Hct 34.9 L (36-46) % MCV 94.2 (80-100) fL MCH 31.6 (26-34) PG MCHC 33.6 (30-36) % RDW 15.4 H (11.6-14.8) % Plt Count 217 (150-400) X10^3/uL Neut % (Auto) 87.5 H (50-75) % Lymph % (Auto) 4.7 L (25-40) % [place] % (Auto) 6.9 (3-14) % Eos % (Auto) 0.2 L (2-4) % Baso % (Auto) 0.7 (0-2) % Neut # (Auto) 91098 H (1455-1478) /uL Lymph # (Auto) 600 L (3777-2096) /uL [place] # (Auto) 900 (0-900) /uL Eos # (Auto) 0 (0-450) /uL Baso # (Auto) 100 (0-100) /uL PT 12.3 (9.4-12.5) SECONDS INR 1.1 (0.9-1.3) APTT 25 L (25.1-36.5) SECONDS Sodium 135 L (137-145) mmol/L Potassium 4.2 (3.4-5.1) mmol/L Chloride 101 (98-107) mmol/L Carbon Dioxide 30 (22-32) mmol/L BUN 16 (7-17) mg/dL Creatinine 1.08 H (0.52-1.04) mg/dL Estimated GFR 55 L (>60) mL/min BUN/Creatinine Ratio 14.8 (6-22) Glucose 95 (80-110) mg/dL Lactate 1.4 (0.7-2.1) mmol/L Calcium 8.9 (8.4-10.2) mg/dL Total Bilirubin 0.8 (0.2-1.3) mg/dL AST 35 (14-36) IU/L ALT 21 (<35) IU/L Alkaline Phosphatase 87 (38-126) U/L Total Creatine Kinase 201 H (30-135) U/L Troponin I < 0.012 (0.01-0.034) ng/mL Total Protein 7.0 (6.3-8.2) g/dL Albumin 3.8 (3.5-5.0) g/dL Globulin 3.2 (1.7-4.1) g/dL Albumin/Globulin Ratio 1.2 (1.0-2.8) Lipase 89 (23-300) U/L Urine Color Yellow Urine Appearance Cloudy Urine pH 5.5 (4.5-8.0) Ur Specific [place] <=1.005 (1.000-1.035) Urine Protein Negative (Negative) Urine Glucose (UA) Negative (Negative) g/dL Urine Ketones Negative (NEGATIVE) Urine Occult Blood Trace-intact (Negative) Urine Nitrate Negative (Negative) Urine Bilirubin Negative (NEGATIVE) Urine Urobilinogen 0.2 (0.2) E.U./dL Ur Leukocyte Esterase 2+ H (NEGATIVE) Urine RBC 0-1/hpf (0-5/HPF) Urine WBC >100/hpf H (0-5/HPF) Ur Squamous Epith Cells 1-5 /hpf (0-5/HPF) Urine Bacteria Many (>30) H (None) Ur Culture Indicated? Specimen cultured U Opiates 300ng/mL cut Positive H (Negative) Ur Oxycodone Screen Positive H (Negative) Urine Methadone Screen Negative (Negative) Ur Barbiturates Screen Negative (Negative) U Tricyclic Antidepress Negative (Negative) Ur Phencyclidine Scrn Negative (Negative) Ur Amphetamines Screen Negative (Negative) U Methamphetamines Scrn Negative (Negative) Ur MDMA Scrn (Ecstasy) Negative (Negative) U Benzodiazepines Scrn Negative (Negative) Urine Cocaine Screen Negative (Negative) U Marijuana (THC) Screen Negative (Negative) Ethyl Alcohol < 10 ( - 10) mg/dL Imaging Data Chest x-ray: Radiologist's Impression: Close Chest X-Ray (Signed) Ricardo Mace - 09/16/[address] 09/16/23 Chest/Abdomen/Pelvis CT 09/16/[address] 09/16/23 Ankle X-Ray (Signed) Ricardo Mace - 09/16/23 Thoracic Spine X-Ray (Signed) Ryan Veronica - 07/26/[address] (Signed) Ryan Veronica - 07/26/[address] (Signed) Ryan Veronica - 07/26/23 Carotid Doppler Study (Signed) Celena Winn - 04/28/23 Echocardiogram Ultrasound (Signed) Aliyah Tavarez - 12/01/21 Carotid Doppler Study (Signed) Dimitris Vazquez - 09/19/21 Echocardiogram Ultrasound (Signed) Aliyah Tavarez - 06/10/20 Neck CTA (Signed) Dimitris Vazquez - 08/24/19 Myocardial Perfusion Scan Nuc Med (Signed) Aliyah Tavarez - 08/24/19 Echocardiogram Ultrasound (Signed) Aliyah Tavarez - 05/05/19 Carotid Doppler Study (Signed) Kuldip Montoya - 05/05/19 Elbow X-Ray (Signed) KateyKaiser - 12/23/18 Wrist X-Ray (Signed) MeiCherrie berriosburton - 12/23/18 Wrist X-Ray (Signed) Mei,Dane - 10/03/18 Launch?Image [address] [address] XRay Report Signed Patient: Deedee Romero MR#: [id number] : 1950 Acct:[id number] Age/Sex: 73 / F Date of Service: 09/16/23 Loc: ED Accession Number: [id number] Procedure: XR chest 1V Ordering Provider: Princess Mederos D.O. PROCEDURE: XR CHEST 1V INDICATIONS: fall TECHNIQUE: One view of the chest was acquired. COMPARISON: [facility], CHEST 1 VIEW, 07/10/2012, 13:36. FINDINGS: Surgical changes and devices: Prosthetic aortic valve is seen. Lungs and pleura: Lungs are clear. No pleural effusions or pneumothorax. Mediastinum: Mediastinal contours appear normal. Heart size is normal. Bones and chest wall: No suspicious bony lesions. Overlying soft tissues appear unremarkable. IMPRESSION: No acute cardiopulmonary pathology. Dictated by: Ricardo Mace M.D. on 09/16/2023 at 8:18 Approved by: Ricardo Mace M.D. on 09/16/2023 at 8:19 Extremity x-ray #1: Radiologist's Impression: [address] [address] XRay Report Signed Patient: Deedee Romero MR#: [id number] : 1950 Acct:[id number] Age/Sex: 73 / F Date of Service: 09/16/23 Loc: ED Accession Number: [id number] Procedure: XR ankle LT min 3V Ordering Provider: Princess Mederos D.O. PROCEDURE: XR ANKLE LT MIN 3V INDICATIONS: left ankle pain, bruising swelling TECHNIQUE: 3 views of the ankle were acquired. COMPARISON: None. FINDINGS: Bones: Acute fracture through medial malleolus is seen with inferior and lateral displacement at fracture site. Acute oblique fracture through distal fibular shaft/lateral malleolus is also noted with posterior and lateral displacement of fractured fragment. There is widening of both medial and lateral ankle mortise. No dislocation. No suspicious bony lesions. Soft tissues: Diffuse soft tissue swelling around ankle joint is noted. No tibiotalar joint effusion. Achilles tendon appears normal. IMPRESSION: Acute displaced bimalleolar fracture with disruption of ankle mortise and ankle soft tissue swelling as above. Dictated by: Ricardo Mace M.D. on 09/16/2023 at 8:19 Approved by: Ricardo Mace M.D. on 09/16/2023 at 8:20 CT scan - head: Radiologist's Impression: [place] [address] CT Scan Report Signed Patient: Deedee Romero MR#: [id number] : 1950 Acct:[id number] Age/Sex: 73 / F Date of Service: 09/16/23 Loc: ED Accession Number: [id number] Procedure: CT head/brain wo con Ordering Provider: Princess Mederos D.O. PROCEDURE: CT HEAD/BRAIN WO CON INDICATIONS: hematoma forehead TECHNIQUE: Noncontrast 4.5 mm thick angled axial sections acquired from the foramen magnum to the vertex, with coronal and sagittal reformats. For radiation dose reduction, the following was used: automated exposure control, adjustment of mA and/or kV according to patient size. COMPARISON: [facility], CT, CT HEAD/BRAIN WO CON, 07/26/2023, 16:23. FINDINGS: Image quality: Excellent. CSF spaces: Basal cisterns are patent. No extra-axial fluid collections. The ventricles are symmetric in size and shape. Brain: No intracranial bleeds or masses. There is cerebral volume loss for age, with resultant ventricular and sulcal prominence. There are periventricular and deep white matter chronic small vessel ischemic changes. There is intracranial internal carotid artery atherosclerosis. Skull and face: Calvarium and visualized facial bones appear intact, without suspicious lesions. Sinuses: Visualized sinuses and mastoids are clear. IMPRESSION: No acute intracranial pathology. No significant changes from previous study. No gross acute skull fracture. Dictated by: Ricardo Mace M.D. on 09/16/2023 at 8:21 Approved by: Ricardo Mace M.D. on 09/16/2023 at 8:21 CT - cervical spine: Radiologist's Impression: Close Chest X-Ray (Signed) Ricardo Mace - 09/16/[address] (Signed) Ricardo Mace - 09/16/23 Chest/Abdomen/Pelvis CT 09/16/[address] (Signed) Ricardo Mace - 09/16/23 Ankle X-Ray (Signed) Ricardo Mace - 09/16/23 Thoracic Spine X-Ray (Signed) Ryan Veronica - 07/26/[address] (Signed) Ryan Veronica - 07/26/[address] (Signed) Ryan Veronica - 07/26/23 Carotid Doppler Study (Signed) Celena Winn - 04/28/23 Echocardiogram Ultrasound (Signed) Aliyah Tavarez - 12/01/21 Carotid Doppler Study (Signed) Dimitris Vazquez - 09/19/21 Echocardiogram Ultrasound (Signed) Aliyah Tavarez - 06/10/20 Neck CTA (Signed) Dimitris Vazquez - 08/24/19 Myocardial Perfusion Scan Nuc Med (Signed) Aliyah Tavarez - 08/24/19 Echocardiogram Ultrasound (Signed) Aliyah Tavarez - 05/05/19 Carotid Doppler Study (Signed) Kuldip Montoya - 05/05/19 Elbow X-Ray (Signed) Kaiser Del Toro - 12/23/18 Wrist X-Ray (Signed) Dane Hurley - 12/23/18 Wrist X-Ray (Signed) Dane Hurley - 10/03/[address] [address] [address] Scan Report Signed Patient: Deedee Romero MR#: [id number] : 1950 Acct:[id number] Age/Sex: 73 / F Date of Service: 09/16/23 Loc: ED Accession Number: [id number] Procedure: CT cervical spine wo con Ordering Provider: Princess Mederos D.O. PROCEDURE: CT CERVICAL SPINE WO CON INDICATIONS: Trauma TECHNIQUE: Noncontrast 3 mm thick sections acquired from the skull base to the T4 level. Sagittal and coronal reformats were then constructed. For radiation dose reduction, the following was used: automated exposure control, adjustment of mA and/or kV according to patient size. COMPARISON: [facility], CT, CT CERVICAL SPINE WO CON, 07/26/2023, 16:23. FINDINGS: Image quality: Diagnostic. Patient motion is noted. Bones: No fractures or dislocations. Degenerative endplate changes and loss of disc height throughout cervical spine is seen. Visualized superior ribs are intact. Soft tissues: Prevertebral soft tissues are normal in thickness. No paravertebral hematomas. No apical pneumothoraces. IMPRESSION: 1. Slightly degraded study due to patient motion. 2. No acute cervical spine fracture or dislocation. [id number] degenerative disc disease throughout cervical spine unchanged from previous study. Dictated by: Ricardo Mace M.D. on 09/16/2023 at 8:21 Approved by: Ricardo Mace M.D. on 09/16/2023 at 8:23 CT chest/abd/pelvis: Radiologist's Impression: [place] [address] CT Scan Report Signed Patient: Deedee Romero MR#: [id number] : 1950 Acct:[id number] Age/Sex: 73 / F Date of Service: 09/16/23 Loc: ED Accession Number: [id number] Procedure: CT chest abd pel w con Ordering Provider: Princess Mederos D.O. PROCEDURE: CT CHEST ABD PEL W CON INDICATIONS: thoracic spine, fall, has hx compress fx, new rib TECHNIQUE: After the administration of intravenous contrast, 5 mm thick sections acquired from the lung apices to the symphysis. 2.5 mm thick coronal and sagittal reformats were acquired. Additional 7 mm thick coronal maximum intensity projection (MIP) reformats acquired through the lungs. Optional 10-minute delayed imaging may be performed from the kidneys to the bladder. For radiation dose reduction, the following was used: automated exposure control, adjustment of mA and/or kV according to patient size. COMPARISON: [facility], CT, CT ANGIO CHEST ABDOMEN PELVIS, 11/23/2022, 15:18. [facility], CR, XR THORACIC SPINE 3V, 07/26/2023, 16:27. [facility], MR, MR ABDOMEN LIVER PROTOCOL, 08/31/2023, 8:47. FINDINGS: Image quality: Excellent. CHEST: Lungs: No pulmonary contusions or lacerations. Dependent atelectasis in posterior aspect of bilateral lower lobes are seen. No acute airspace opacities. Mild centrilobular emphysema is also seen. No pneumothorax or hemothorax. Central and peripheral airways appear patent and normal in caliber. Mediastinum: No mediastinal hematomas. Heart size is normal. No pericardial effusion. Thoracic aorta and pulmonary arteries demonstrate normal size and enhancement. Moderate atherosclerotic calcifications are noted in thoracic aorta and coronary vessels. Prosthetic aortic valve is seen. No mediastinal or hilar adenopathy. Esophagus is normal in caliber. No hiatal hernia. Chest wall: No rib fractures. No subcutaneous emphysema. No axillary or supraclavicular adenopathy. Thyroid gland is within normal limits. ABDOMEN: Solid organs: There is no hepatic laceration. Lobulated liver contour is seen with diffusely decreased liver parenchymal density. Gallbladder contains multiple calcified stones. No gallbladder wall thickening or pericholecystic fluid. Biliary system is non-dilated. Pancreas enhances normally, without transection. Spleen is normal in size and enhancement, without lacerations. No adrenal hematomas. Chronic atrophic appearing left kidney is again seen. No evidence of renal laceration. No hydronephrosis or hydroureter. Peritoneum and bowel: No free fluid or air. Unenhanced bowel loops demonstrate normal wall thickness and caliber. Mild fecal stasis in the colon is seen. Nodes and vessels: No retroperitoneal or mesenteric adenopathy. Aorta and inferior vena cava are normal in size and enhancement. Atherosclerotic calcifications throughout abdominal aorta and bilateral iliac arteries are seen. Miscellaneous: No ventral hernias. PELVIS: Genitourinary: Bladder wall thickness is normal. Miscellaneous: No inguinal hernias or adenopathy. Bones: Pelvic ring and hip joints appear intact. Chronic appearing compression deformities are again noted involving T9, T11, T12, L1, L2, L3 and L5 vertebral bodies unchanged from prior studies. Severe anterior wedge compression deformity at T4 level is seen with near complete loss of T4 vertebral body height anteriorly further decreased compared to 07/26/2023 study. Chronic appearing deformity involving upper sternum is again seen. IMPRESSION: 1. No acute solid organ injury is seen in chest, abdomen or pelvis. 2. Dependent atelectasis in posterior aspect of bilateral lung bases. No pleural effusion or pneumothorax. 3. Cirrhotic appearing liver better evaluated on recent MRI study. Cholelithiasis without evidence of acute cholecystitis. Chronic atrophic left kidney. No hydronephrosis or hydroureter. 4. Mild constipation. No bowel obstruction. No abnormal bowel wall thickening. 5. Interval further loss of T4 vertebral body height with severe anterior wedge compression deformity compared to 07/26/2023 study. Chronic appearing compression deformities involving multiple lower thoracic and lumbar spine vertebral bodies unchanged from prior studies. No acute rib fracture. No acute pelvic fracture. Dictated by: Ricardo Mace M.D. on 09/16/2023 at 8:24 Approved by: Ricardo Mace M.D. on 09/16/2023 at 8:33 ECG Data Attestation: I personally reviewed and interpreted this ECG as follows: Prior ECG tracings: available for review Interpretation: Normal sinus rhythm rate of 60 ME 152 QRS is 78 QTC of 470. No acute ST elevation. Nonspecific change. Patient does have prior available for review from 06/30/2022. [facility] Narrative Medical decision making narrative: 73-year-old female reportedly not anticoagulated but does have a history of chronic liver failure with possible ground level fall versus other cause patient does not recall how she ended up on the ground. On the ground reportedly for 3 hours last night helped into bed by family but has persistent pain today. Has very small amount of ecchymosis on the right scapula tenderness over the right ribs has a hematoma of the right forehead as well as obvious bruising and swelling of the left ankle. Patient denies any alcohol ingestion but there is report she may still drink alcohol. She does not recall the mechanism so imaging including head CT, C-spine chest abdomen pelvis as patient also had some midline tenderness although last visit on 07/26/23 showed T5 mild compression deformity with multiple other lumbar compression deformities patient has mild tenderness over this region. Plan for imaging and lab workup for other source of a fall. Labs show leukocytosis white count 13 hemoglobin of 11, last labs were 5 years ago, platelets of 217 with leftward shift. Coags negative sodium 135 potassium 4.2 renal function appears to be at baseline or appropriate at 1.08 was as high as 1.7 and 2019. BUN 16 glucose 95 with lactate of 1.4 LFTs are negative, lipase is negative. ETOH is negative. Total CK is 201. Troponin is negative Urine studies show 2+ leukocyte esterase, no nitrates, 0-1 RBC, greater than 100 wbc's with many bacteria and 1-5 squamous epithelials. Sent for culture. Patient does appear to have UTI. We will treat with oral antibiotics. Does not appear to be septic. EKG shows no specific change to remove sinus rhythm. Head CT shows no acute change C-spine no acute cervical spine fracture. [id number] degenerative disc disease unchanged from prior. Chest abdomen pelvis dependent atelectasis posterior bases bilateral lung bases. Cirrhotic appearing liver, chronic atrophic left kidney, mild constipation. Interval loss of T4 vertebral body height severe anterior wedge compression deformity compared to July 2023 chronic appearing compression lower thoracic and lumbar spine bodies unchanged. No rib fracture no pelvic fracture. Ankle x-ray positive bimalleolar fracture. Plan for ortho boot, referral to orthopedic surgery . Patient was sat up she gets dizzy, orthostatics were positive. Was given a L of fluids and on recheck she feels much improved. She was up able to be ambulated very short distance and she feels safe for disposition. Was given a walker, orthopedic boot with toe-touch weight-bearing. Patient feels comfortable with plan was given additional dose of oral antibiotic for home this evening, pre packs were provided and script sent to be filled tomorrow. Discharge Plan Departure Patient Disposition: Home Clinical Impression: Closed compression fracture of thoracic vertebra, Acute UTI Bimalleolar ankle fracture Qualifiers: Encounter type: initial encounter Fracture type: closed Laterality: left Q ualified Code(s): S82.842A - Displaced bimalleolar fracture of left lower leg, initial encounter for closed fracture Activity Restrictions/Additional Instructions: Follow up with orthopedic surgery in the next week, call for an appointment. You have a fracture of your left ankle that is new, follow-up with orthopedic surgery to make sure this is healing appropriately. You have multiple compression fractures in your thoracic and lumbar spine, if these become more and more painful you may be a candidate for intervention. You may take oxycodone 1-2 tablets every 6 hours as needed for pain. This medication can make you sleepy do not drive, perform hazardous activities or make any major decisions while taking it. This medication will make you constipated please take a stool softener once to twice daily until stools are soft and regular. You may take Zofran 1 tablet every 6 hours as needed for nausea. Take antibiotics until completed. You have been sent home with 1 additional dose for this evening. Prescription sent to [facility] in [place]. You may toe-touch weightbear. Splint Care: Keep splint clean and dry. Elevated affected body part to decrease swelling. OK to use ice pack on the affected body part. Use for 15-20 minutes each time, for 5-6x per day. If you develop worsening pain, numbness, tingling, discoloration of the affected body part, loosen the splint by loosening the YUAN wrap, and either see your doctor for an urgent re-assessment, or return to the Emergency Department. Return to the Emergency Department for any new or worsening symptoms. Prescriptions: New oxycodone 5 mg tablet 5 mg PO Q6H PRN (Reason: pain) Qty: 14 0RF ondansetron 4 mg tablet,disintegrating 4 mg PO Q6H PRN (Reason: nausea and vomiting) Qty: 10 0RF nitrofurantoin monohyd/m-cryst [Macrobid] 100 mg capsule 100 mg PO Q12H 5 Days Qty: 10 0RF Rx Instructions: must administer with a meal/food No Action furosemide 20 mg tablet 10 mg PO DAILY magnesium 250 mg tablet 250 mg PO DAILY pantoprazole 40 mg tablet,delayed release (DR/EC) 40 mg PO DAILY rifaximin 550 mg tablet 550 mg PO BID spironolactone 25 mg tablet 25 mg PO DAILY simvastatin 40 mg tablet 40 mg PO BEDTIME diclofenac sodium 1 % gel 2 gram TOP BID Qty: 100 2RF Rx Instructions: apply to single wrist nadolol 40 mg tablet 40 mg PO DAILY tramadol 50 mg tablet 50 mg PO Q6H PRN (Reason: pain) Qty: 10 0RF Referrals: Tanya Escalante MD [Primary Care Provider] - Walter Garsia MD [Physician] - Stand Alone Forms: Patient Portal/API
--- NOTE | 2023-09-16 07:16 | DI.RAD.S_ITS ---
PROCEDURE: XR ANKLE LT MIN 3V INDICATIONS: left ankle pain, bruising swelling TECHNIQUE: 3 views of the ankle were acquired. COMPARISON: None. FINDINGS: Bones: Acute fracture through medial malleolus is seen with inferior and lateral displacement at fracture site. Acute oblique fracture through distal fibular shaft/lateral malleolus is also noted with posterior and lateral displacement of fractured fragment. There is widening of both medial and lateral ankle mortise. No dislocation. No suspicious bony lesions. Soft tissues: Diffuse soft tissue swelling around ankle joint is noted. No tibiotalar joint effusion. Achilles tendon appears normal. IMPRESSION: Acute displaced bimalleolar fracture with disruption of ankle mortise and ankle soft tissue swelling as above. Dictated by: Ricardo Mace M.D. on 09/16/2023 at 8:19 Approved by: Ricardo Mace M.D. on 09/16/2023 at 8:20
--- NOTE | 2023-09-16 07:17 | DI.CT.S_ITS ---
PROCEDURE: CT CHEST ABD PEL W CON INDICATIONS: thoracic spine, fall, has hx compress fx, new rib TECHNIQUE: After the administration of intravenous contrast, 5 mm thick sections acquired from the lung apices to the symphysis. 2.5 mm thick coronal and sagittal reformats were acquired. Additional 7 mm thick coronal maximum intensity projection (MIP) reformats acquired through the lungs. Optional 10-minute delayed imaging may be performed from the kidneys to the bladder. For radiation dose reduction, the following was used: automated exposure control, adjustment of mA and/or kV according to patient size. COMPARISON: [facility], CT, CT ANGIO CHEST ABDOMEN PELVIS, 11/23/2022, 15:18. [facility], CR, XR THORACIC SPINE 3V, 07/26/2023, 16:27. [facility], MR, MR ABDOMEN LIVER PROTOCOL, 08/31/2023, 8:47. FINDINGS: Image quality: Excellent. CHEST: Lungs: No pulmonary contusions or lacerations. Dependent atelectasis in posterior aspect of bilateral lower lobes are seen. No acute airspace opacities. Mild centrilobular emphysema is also seen. No pneumothorax or hemothorax. Central and peripheral airways appear patent and normal in caliber. Mediastinum: No mediastinal hematomas. Heart size is normal. No pericardial effusion. Thoracic aorta and pulmonary arteries demonstrate normal size and enhancement. Moderate atherosclerotic calcifications are noted in thoracic aorta and coronary vessels. Prosthetic aortic valve is seen. No mediastinal or hilar adenopathy. Esophagus is normal in caliber. No hiatal hernia. Chest wall: No rib fractures. No subcutaneous emphysema. No axillary or supraclavicular adenopathy. Thyroid gland is within normal limits. ABDOMEN: Solid organs: There is no hepatic laceration. Lobulated liver contour is seen with diffusely decreased liver parenchymal density. Gallbladder contains multiple calcified stones. No gallbladder wall thickening or pericholecystic fluid. Biliary system is non-dilated. Pancreas enhances normally, without transection. Spleen is normal in size and enhancement, without lacerations. No adrenal hematomas. Chronic atrophic appearing left kidney is again seen. No evidence of renal laceration. No hydronephrosis or hydroureter. Peritoneum and bowel: No free fluid or air. Unenhanced bowel loops demonstrate normal wall thickness and caliber. Mild fecal stasis in the colon is seen. Nodes and vessels: No retroperitoneal or mesenteric adenopathy. Aorta and inferior vena cava are normal in size and enhancement. Atherosclerotic calcifications throughout abdominal aorta and bilateral iliac arteries are seen. Miscellaneous: No ventral hernias. PELVIS: Genitourinary: Bladder wall thickness is normal. Miscellaneous: No inguinal hernias or adenopathy. Bones: Pelvic ring and hip joints appear intact. Chronic appearing compression deformities are again noted involving T9, T11, T12, L1, L2, L3 and L5 vertebral bodies unchanged from prior studies. Severe anterior wedge compression deformity at T4 level is seen with near complete loss of T4 vertebral body height anteriorly further decreased compared to 07/26/2023 study. Chronic appearing deformity involving upper sternum is again seen. IMPRESSION: 1. No acute solid organ injury is seen in chest, abdomen or pelvis. 2. Dependent atelectasis in posterior aspect of bilateral lung bases. No pleural effusion or pneumothorax. 3. Cirrhotic appearing liver better evaluated on recent MRI study. Cholelithiasis without evidence of acute cholecystitis. Chronic atrophic left kidney. No hydronephrosis or hydroureter. 4. Mild constipation. No bowel obstruction. No abnormal bowel wall thickening. 5. Interval further loss of T4 vertebral body height with severe anterior wedge compression deformity compared to 07/26/2023 study. Chronic appearing compression deformities involving multiple lower thoracic and lumbar spine vertebral bodies unchanged from prior studies. No acute rib fracture. No acute pelvic fracture. Dictated by: Ricardo Mace M.D. on 09/16/2023 at 8:24 Approved by: Ricardo Mace M.D. on 09/16/2023 at 8:33
--- NOTE | 2023-09-16 07:17 | DI.CT.S_ITS ---
PROCEDURE: CT HEAD/BRAIN WO CON INDICATIONS: hematoma forehead TECHNIQUE: Noncontrast 4.5 mm thick angled axial sections acquired from the foramen magnum to the vertex, with coronal and sagittal reformats. For radiation dose reduction, the following was used: automated exposure control, adjustment of mA and/or kV according to patient size. COMPARISON: [facility], CT, CT HEAD/BRAIN WO CON, 07/26/2023, 16:23. FINDINGS: Image quality: Excellent. CSF spaces: Basal cisterns are patent. No extra-axial fluid collections. The ventricles are symmetric in size and shape. Brain: No intracranial bleeds or masses. There is cerebral volume loss for age, with resultant ventricular and sulcal prominence. There are periventricular and deep white matter chronic small vessel ischemic changes. There is intracranial internal carotid artery atherosclerosis. Skull and face: Calvarium and visualized facial bones appear intact, without suspicious lesions. Sinuses: Visualized sinuses and mastoids are clear. IMPRESSION: No acute intracranial pathology. No significant changes from previous study. No gross acute skull fracture. Dictated by: Ricardo Mace M.D. on 09/16/2023 at 8:21 Approved by: Ricardo Mace M.D. on 09/16/2023 at 8:21
--- NOTE | 2023-09-16 07:17 | DI.CT.S_ITS ---
PROCEDURE: CT CERVICAL SPINE WO CON INDICATIONS: Trauma TECHNIQUE: Noncontrast 3 mm thick sections acquired from the skull base to the T4 level. Sagittal and coronal reformats were then constructed. For radiation dose reduction, the following was used: automated exposure control, adjustment of mA and/or kV according to patient size. COMPARISON: [facility], CT, CT CERVICAL SPINE WO CON, 07/26/2023, 16:23. FINDINGS: Image quality: Diagnostic. Patient motion is noted. Bones: No fractures or dislocations. Degenerative endplate changes and loss of disc height throughout cervical spine is seen. Visualized superior ribs are intact. Soft tissues: Prevertebral soft tissues are normal in thickness. No paravertebral hematomas. No apical pneumothoraces. IMPRESSION: 1. Slightly degraded study due to patient motion. 2. No acute cervical spine fracture or dislocation. [id number] degenerative disc disease throughout cervical spine unchanged from previous study. Dictated by: Ricardo Mace M.D. on 09/16/2023 at 8:21 Approved by: Ricardo Mace M.D. on 09/16/2023 at 8:23
--- NOTE | 2023-09-16 07:19 | DI.RAD.S_ITS ---
PROCEDURE: XR CHEST 1V INDICATIONS: fall TECHNIQUE: One view of the chest was acquired. COMPARISON: [facility], , CHEST 1 VIEW, 07/10/2012, 13:36. FINDINGS: Surgical changes and devices: Prosthetic aortic valve is seen. Lungs and pleura: Lungs are clear. No pleural effusions or pneumothorax. Mediastinum: Mediastinal contours appear normal. Heart size is normal. Bones and chest wall: No suspicious bony lesions. Overlying soft tissues appear unremarkable. IMPRESSION: No acute cardiopulmonary pathology. Dictated by: Ricardo Mace M.D. on 09/16/2023 at 8:18 Approved by: Ricardo Mace M.D. on 09/16/2023 at 8:19
[2023-09-16] MEDS: MORPHINE 4 MG/ML INJ IV (07:45)
[2023-09-16 07:53] LABS: Add Manual Diff / Slide Review NO; Basophils Absolute Auto 100 /uL (0-100); Basophils Percent Auto 0.7 % (0-2); Eosinophils Absolute Auto 0 /uL (0-450); Eosinophils Percent Auto 0.2 % (2-4); Hematocrit 34.9 % (36-46); Hemoglobin 11.7 g/dL (12.0-16.0); Lymphocytes Absolute Auto 600 /uL (1100-4500); Lymphocytes Percent Auto 4.7 % (25-40); Mean Corpuscular HGB Conc 33.6 % (30-36); Mean Corpuscular Hemoglobin 31.6 PG (26-34); Mean Corpuscular Volume 94.2 fL (80-100); Monocytes Absolute Auto 900 /uL (0-900); Monocytes Percent Auto 6.9 % (3-14); Neutrophils Absolute Auto 11800 /uL (1500-7000); Neutrophils Percent Auto 87.5 % (50-75); Platelet Count 217 X10^3/uL (150-400); Red Blood Cell Count 3.71 X10^6/uL (4.0-5.2); Red Cell Distribution Width 15.4 % (11.6-14.8); White Blood Cell Count 13.5 X10^3/uL (4.5-11.0)
[2023-09-16 07:58] LABS: INR 1.1 (0.9-1.3); Prothrombin Time 12.3 SECONDS (9.4-12.5)
[2023-09-16 08:01] LABS: PTT Partial Thromboplastin Tim 25 SECONDS (25.1-36.5)
[2023-09-16 08:03] LABS: Alanine Aminotransferase 21 IU/L (<35); Albumin 3.8 g/dL (3.5-5.0); Albumin Globulin Ratio 1.2 (1.0-2.8); Alkaline Phosphatase 87 U/L (38-126); Aspartate Aminotransferase 35 IU/L (14-36); BUN Creatinine Ratio 14.8 (6-22); Bilirubin Total 0.8 mg/dL (0.2-1.3); Blood Urea Nitrogen 16 mg/dL (7-17); Calcium 8.9 mg/dL (8.4-10.2); Carbon Dioxide 30 mmol/L (22-32); Chloride 101 mmol/L (98-107); Creatine Kinase 201 U/L (30-135); Estimated Glomerular Filt Rate 55 mL/min (>60); Ethanol (ETOH) < 10 mg/dL; Globulin 3.2 g/dL (1.7-4.1); Glucose 95 mg/dL (80-110); HEMOLYSIS < 15 (0-50); Lactate (Lactic Acid) 1.4 mmol/L (0.7-2.1); Lipase 89 U/L (23-300); Potassium 4.2 mmol/L (3.4-5.1); Sodium 135 mmol/L (137-145)
[2023-09-16 08:14] LABS: Troponin I < 0.012 ng/mL (0.01-0.034)
--- NOTE | 2023-09-16 09:30 | PC.NURSE ---
Pt states she lives at home alone in [place] at her small house with 3x dogs and 5x cats. Her bathroom is right outside her bedroom door and the kitchen is near her room. She does not have stairs at home that she uses. Pt seen here within the past 2x wweeks for a fall. Today she is uncertain exactly what happened, but she had let her dogs out and doesnt remember what happened after. She let the dogs out around 1830 yesterday and a friend came over shortly after and found her on the ground, assisting her back into bed.
[2023-09-16] MEDS: OXYCODONE IR 5 MG TABLET PO (09:32)
--- NOTE | 2023-09-16 10:45 | PC.NURSE ---
Addendum entered by Antonio Mares R.N. 09/16/23 10:59: Provider notified of patient's drop in BP. New fluids ordered. Original Note: Patient able to sit up at bedside, she stated she felt a little dizzy. BP per vitals charted. Upon standing patient did not feel worsening dizziness, BP was lower at 101/54 standing. Patient able to take a few steps with the walker and minimal weight on her left foot with ortho boot. She was able to turn and sit on the commode with stand by assist. Urine sample provided and patient able to stand up and ambulate back to bed stand by assist. Pt was nauseous while moving back to bed, but once in bed denied nausea. Pt positioned with pillows under her legs and warm blankets.
[2023-09-16] MEDS: SODIUM CHLORIDE 0.9% 1,000 ML 1000 ML IV (10:48)
[2023-09-16 11:00] LABS: Appearance Urine UA CLOUDY; Bilirubin Urine UA NEGATIVE (NEGATIVE); Color Urine UA YELLOW; Glucose Urine UA NEGATIVE (Negative); Ketones Urine UA NEGATIVE (NEGATIVE); Leukocyte Esterase Urine UA 2+ (NEGATIVE); Nitrite Urine UA NEGATIVE (Negative); Occult Blood Urine UA TRACE-INTACT (Negative); Protein Urine UA NEGATIVE (Negative); Specific Gravity Urine UA <=1.005 (1.000-1.035); Urobilinogen Urine UA 0.2 E.U./dL (0.2)
[2023-09-16 11:05] LABS: UR Morphine/Opiate cutoff 300 Positive (Negative); Ur Creatinine Normal (Normal); Ur Specific Gravity Normal (Normal); Urine Amphetamines Negative (Negative); Urine Barbiturates Negative (Negative); Urine Benzodiazepines Negative (Negative); Urine Cocaine Negative (Negative); Urine MDMA Negative (Negative); Urine Methadone Negative (Negative); Urine Methamphetamines Negative (Negative); Urine Oxycodone Positive (Negative); Urine Phencyclidine Negative (Negative); Urine Tetrahydrocannabinol Negative (Negative); Urine Tricyclic Antidepressant Negative (Negative); Urine pH Normal (Normal)
[2023-09-16 11:09] LABS: pH Urine UA 5.5 (4.5-8.0)
[2023-09-16 11:10] LABS: Bacteria Urine Many (>30); Culture Indicated Urine Specimen Cultured; RBC Urine 0-1/HPF (0-5/HPF); Squamous Epithelial Cell Urine 1-5 /HPF (0-5/HPF); WBC Urine >100/HPF (0-5/HPF)
--- NOTE | 2023-09-16 12:07 | CM.SWNOTE ---
ED CLAIM INSPECTOR Note CLAIM INSPECTOR receives consult due to patient's recent GLF today. Patient is 73 y/o female who presents to ED via EMS, a family member found her after she fell, it is reported that she was on the ground for about 3 hours. Per ankle xray patient has displaced bimalleolar fracture. Patient dx with UTI today as well. Patient's PCP is Dr. Escalante with [facility]. Patient has [employer] Medicare Advantage insurance. Patient has hx of chronic liver failure, acquired hypothryoidism and hx of thoracic vertebra fracture. CLAIM INSPECTOR enters room to meet with patient, patient presents as A/Ox4. Patient endorses she has had a lot of recent GLFs and states that she gets low blood pressure when she stands up. Patient endorses she resides alone in [place], manages ADLs independently and drives. Patient states she has several hinduism friends that check on her regularly and has a cousin and son that lives in town as well. Patient endorses she would benefit from a refrigeration houseman but does not have money to pay for it, patient endorses she has 3 dogs and 5 cats. CLAIM INSPECTOR discusses [facility] [employer] [facility] program and patient endorses agreement to referral. CLAIM INSPECTOR provides patient with senior resource guide and fall prevention class flyer that is hosting. CLAIM INSPECTOR encourages patient to f/u with PCP. CLAIM INSPECTOR calls [facility] and leaves regarding new referral for patient. Patient endorses that her cousin Dryden or friend Walter can give her a ride home upon d/c. Plan: patient to d/c to home with friend, patient to f/u with PCP, Community inside sales specialist referral in place. SUSHMA GoodrichSW
[2023-09-16] MEDS: NITROFURANTOIN ER 100 MG CAPSULE PO ×2 (12:11→13:00)
--- NOTE | 2023-09-16 12:16 | PC.NURSE ---
Patient IV fluids completed. Pt sat up in bed with legs dangling off side. Pt was initially a little lightheaded, nothing new from when I'm at home when sitting up. within 20 seconds pt states she is no longer lightheaded and is feeling better. Pt agrees that she would be safe to go home with how she is feeling now.
[2023-09-16] MEDS: ONDANSETRON 4 MG ODT PREPACK 1 BOTTLE MISC (12:44)
--- NOTE | 2023-09-16 12:45 | PC.NURSE ---
Pharmacy prepared oxycodone IR 5mg qt 4 for patient. Patient also given odt zofran prepack and antibiotics ordered and sent to her pharmacy for pickup tomorrow when they open.
== END 2023-09-16 13:02 | disposition home or self-care (01) ==
PROVIDERS: Emergency Provider Emergency Medicine; Family Provider Family Medicine; PCP Family Medicine
DX: S82.842A Displaced bimalleolar fracture of left lower leg, initial encounter for closed fracture (principal); M48.54XA Collapsed vertebra, not elsewhere classified, thoracic region, initial encounter for fracture; R03.0 Elevated blood-pressure reading, without diagnosis of hypertension; S00.83XA Contusion of other part of head, initial encounter; Z95.2 Presence of prosthetic heart valve; W19.XXXA Unspecified fall, initial encounter
CPT/HCPCS: 36415; 70450; 71045; 71260; 72125; 73610; 74177; 80053; 80305; 80320; 81001; 82550; 83605; 83690; 84484; 85025; 85610; 85730; 87077; 87086; 87186; 93005; 93010; 96374; 99284; J2270

== ENCOUNTER 2023-10-13 19:16 | Inpatient (IN) | payer OTHER, SELFPAY ==
[2023-10-12 08:44] VITALS: BMI 25.2
[2023-10-13] VITALS (9 sets, daily range): BP systolic 130–158; BP diastolic 43–73; PULSE 72–88; RESP 14–16; TEMP 36.2–36.9; O2SAT 96–99; BMI 24.2; BMI 23.1
--- NOTE | 2023-10-13 | DI.RAD.S_ITS ---
PROCEDURE: XR ANKLE LT 2V INDICATIONS: ORIF TECHNIQUE: 7 views of the ankle were acquired. COMPARISON: [facility], CR, XR ANKLE LT MIN 3V, 09/16/2023, 7:57. FINDINGS: Low resolution intraoperative fluoroscopic spot films shows left ankle by malleolar instrumentation in progress IMPRESSION: 1. Fluoroscopic guidance Approved by: Walter Hernandez M.D. on 10/14/2023 at 21:16
[2023-10-13] MEDS: LACTATED RINGERS 1,000 ML 42 ML IV ×2 (14:22→17:59)
--- NOTE | 2023-10-13 14:30 | PM.PREOP ---
Pre-operative Note Interval Note History & Physical reviewed/Exam performed by Physician: Yes Changes to H&P: No
--- NOTE | 2023-10-13 15:03 | PM.HP.1 ---
History of Present Illness History of Present Illness Chief complaint: [facility] [place] Narrative: CLINIC NOTE FROM 10/08/23 - HPI: Very pleasant 73-year-old female seen for wound check following her surgery approximately 2 weeks ago.? She had been in a splint until today.? She reports having minimal pain.? She has been taking anticoagulation appropriately in the form of aspirin.? She has been nonweightbearing ? PRIOR HIP/KNEE PROCEDURES: 09/22/2023: Open reduction internal fixation left bimalleolar ankle fracture ? PHYSICAL EXAM: Left Lower Extremity Exam: No gross deformity, sensation intact to light touch in sural, saphenous, superficial peroneal, deep peroneal and tibial nerve distributions, fires FHL,EHL, tibialis anterior, and gastrocnemius/soleus muscles. Palpable dorsalis pedis and posterior tibial pulses. Toes warm and well perfused with brisk capillary refill.? Wounds healing appropriately ? RADIOLOGY: Images independently reviewed and interpreted: AP and lateral radiographs of the left ankle obtained today demonstrate fixation failure.? The fixation has pulled out completely from the medial side.? It is pulled out partially from the lateral side.? She has lapsed back into her preoperative deformity ? ASSESSMENT 73-year-old female with severe osteoporosis and a bimalleolar ankle fracture who underwent open reduction internal fixation by me 2 weeks ago and now has complete failure of the fixation construct ? PLAN: I explained what has happened to the patient and showed her the radiographs demonstrating fixation failure.? We are going to need to return to the operating room.? I we will plan to use adjunct of fixation beyond what is normally used for a bimalleolar ankle fracture given her osteoporosis which I noted during the surgery and caused challenges with obtaining adequate fixation.? I am working on scheduling this at this time.? I want to get it done as soon as I can [facility] Medical History (Updated 10/12/23 @ 09:55 by Valorie Garcia RN) Eczema Carotid artery stenosis Hearing loss Cancer GERD (gastroesophageal reflux disease) Esophageal varices Chronic kidney disease Depression DVT (deep venous thrombosis) Cirrhosis HLD (hyperlipidemia) HTN (hypertension) Fracture of left distal radius (2019) History of transcatheter aortic valve replacement (TAVR) (10/27/20) Chronic liver failure TIA (transient ischemic attack) (~2008) Osteoporosis Surgical History (Updated 10/12/23 @ 09:55 by Valorie A Bear, RN) History of left-sided carotid endarterectomy (09/2019) Hx of tonsillectomy History of esophagogastroduodenoscopy (EGD) Hx of colonoscopy History of cataract extraction History of open reduction and internal fixation (ORIF) procedure (09/22/23) Social History Smoking Status: Never smoker Meds Home Medications and Allergies Home Medications Medication Instructions Recorded Confirmed Type furosemide 20 mg tablet 10 mg PO DAILY 10/03/18 12/23/18 History magnesium 250 mg tablet 250 mg PO DAILY 10/03/18 10/03/18 History pantoprazole 40 mg tablet,delayed 40 mg PO DAILY 10/03/18 12/23/18 History release rifaximin 550 mg tablet 550 mg PO BID 10/03/18 12/23/18 History simvastatin 40 mg tablet 40 mg PO BEDTIME 10/03/18 12/23/18 History spironolactone 25 mg tablet 25 mg PO DAILY 10/03/18 12/23/18 History nadolol 40 mg tablet 40 mg PO DAILY 12/23/18 12/23/18 History tramadol 50 mg tablet 50 mg PO Q6H PRN pain #10 tabs 12/23/18 Rx amlodipine 5 mg tablet 5 mg PO DAILY 10/13/23 10/13/23 History citalopram 10 mg tablet 30 mg PO DAILY 10/13/23 10/13/23 History gabapentin 300 mg capsule 300 mg PO DAILY 10/13/23 10/13/23 History Allergies Allergy/AdvReac Type Severity Reaction Status Date / Time Penicillins Allergy Severe HIVES Verified 12/23/18 13:40 Exam Vital Signs (past 8 hours): - 10/13/23 14:12 Temperature 98.3 F Pulse Rate 84 Respiratory Rate 16 Blood Pressure 158/73 H Pulse Oximetry 99 Oxygen Delivery Method Room Air Oxygen Delivery Method Room Air
--- NOTE | 2023-10-13 15:08 | SUR.PREOP ---
Adductor and popliteal block to be performed by Dr Franks. Monitoring initiated and maintained throughout procedure. 2LNc applied per anesthesiologist instructions. Versed given per aneshtesia record. Time out done at 1507. Block start time - 1536. Block end time - 1539. Patient remained stable throughout procedure. No adverse reactions noted.
[2023-10-13] MEDS: CEFAZOLIN 2 GM/100 ML PREMIX 100 ML IV (16:10)
--- NOTE | 2023-10-13 16:32 | SUR.OPER ---
Supine on padded OR bed, head on pillow, arms secured on padded arm boards at <90 degrees abduction, legs uncrossed, safety belt around abdomen. Bump placed under left hip, and left leg. Tape over blanket over right lower leg. Left leg in control of surgeon.
[2023-10-13] MEDS: BUPIVACAINE 0.25% (PF) 10 ML, EPINEPHrine 0.05 MG INJ (16:46)
[2023-10-13] MEDS: ACETAMINOPHEN IV 1,000 MG/100 ML VIAL 400 MG IV (17:38)
--- NOTE | 2023-10-13 18:47 | SUR.PHASEI ---
Pt transferred to room 210 by Hany PANDA. Pt awake, alert, tolerating eldon calvin, foot elevated. States she only took a little step while coming down the stair this morning but didn't put a lot of weight on in. Pt transferred with 1 belongings bag.
--- NOTE | 2023-10-13 18:48 | P.OP_ITS ---
Operative Date/Time/Diagnoses Date of procedure: 10/13/23 Pre-op diagnosis: Failure of fixation of bimalleolar left ankle fracture Post-op diagnosis: same Procedure & Clinicians Procedure: Revision open reduction internal fixation of left ankle fracture Same procedure as scheduled: Yes Surgeon: Walter Garsia Click Yes if Unassisted: Yes Anesthesia Type: General, Peripheral nerve block and Local Operative Notes Prosthetic devices, grafts, tissues, transplants, or devices: Arthrex medial hook plate and cannulated screw with maintenance of prior Arthrex distal fibula plate and placement of syndesmotic screws Estimated Blood Loss (mL): 25 Tourniquet time (min): 110 Procedure in detail: This 73-year-old female patient had previously undergone open reduction internal fixation of a bimalleolar left ankle fracture. Extremely poor bone quality was noted during the procedure. I discussed this with her after the conclusion of the procedure and stressed the importance of maintaining a nonweightbearing status to the affected limb. Unfortunately after returning home after discussions with members of her local bahai, she had trouble maintaining her nonweightbearing status. [employer] members had been coming by to aid her throughout the day however she lives alone and could not navigate to her bathroom with her kneeling scooter. I saw her back in clinic for her 2 week checkup and got radiographs at that visit which demonstrated complete failure of the medial sided fixation with partial failure of the lateral sided fixation with all of the proximal cortical screws in the lateral plate having pulled out. After discussion of the fixation failure arranged for her to return to the operating room for revision fixation. She was met in the preoperative holding area. All questions were answered. Risks and benefits were discussed at length. Particular risks that I discussed with her included wound breakdown over the medial and lateral incisions, particularly given the increased size of the medial incision and the hook plate on the medial side which could tense the skin more than standard medial malleolus screws. Additional risks I discussed with her were posttraumatic arthritis, repeat fixation failure, and medical complications. She understood these risks and wished to proceed. Informed consent was signed in the operative site was marked. The patient was brought back to the operating room and a peripheral nerve block was performed by anesthesia. General anesthesia was induced. The patient was transferred to the operating room table and prepped and draped in the usual sterile fashion. A time-out procedure was performed verifying the correct patient, operative site, procedure to be performed, and comorbidities. Ancef was administered prior to incision. I began by approaching the lateral side. I found that 1 locking screw had backed out distally but that the others had remained in place. The fixation proximally with 3.5 mm screws had all pulled out. I therefore removed the screws and tested the stability of the screws in the distal segment which I found to be satisfactory. I then moved to the medial side. I opened and extended the incision. I removed the 2 prior cannulated screws which had pulled out of her medial malleolus. I clamped the fracture back in place after cleaning it out with a rongeur and normal saline. I obtained fluoroscopy demonstrating an appropriate reduction and fixed the medial malleolus in place with a K-wire. I verified appropriate positioning of the K- wire on the AP and lateral views. I placed the hook plate around the K-wire and tamped it into place. I verified appropriate positioning of the hook plate on AP and lateral views after provisionally fixing it in place proximally with an olive wire. I drilled for a cannulated screw over the K-wire which was holding in place the reduction and placed a 60 mm long thread partially-threaded screw in that position. I then placed a screw in the oblong hole in the medial hook plate and obtained bicortical purchase with this. I used this to move the plate proximally by drilling in the superior portion of the oblong hole in order to obtain additional compression of the hooks against the distal medial malleolus. I then used a combination of locking screws proximally and distally in the hook plate to fix it in place. I then returned to the lateral side and placed a nonlocking screw through 1 of the old holes in order to provisionally fix the plate to the lateral malleolus proximally where all of the screws had pulled out. This fixed the plate against the bone and reduced the fracture. I then placed syndesmotic screws through all of the proximal holes ensuring appropriate positioning on AP and lateral views. I also tightened the locking screw distally which had backed out. I obtained final fluoroscopic imaging demonstrating reduction of the medial and lateral malleolus fractures and copiously irrigated the wound before closing it using a combination of Vicryl and nylon sutures, wrapping it in a soft dressing and placing an overlying splint. Post-operative Plan for aftercare: 1. Patient will be admitted to the floor under my name 2. Continue home medications 3. Patient has been taking tramadol for pain control and I will continue this year. She may have oxycodone 5 mg for breakthrough pain 4. Given her difficulties maintaining a nonweightbearing status after her initial surgery I want to get her set up for discharge to a correction facility for at least a short period of time to allow her fracture sometime to heal given her independent home living situation 5. The patient has a very active bahai community who will help with logistics after she returns home from the correction facility and aid her with maintaining her home until she can return home to convalesce there
[2023-10-14 00:19] VITALS: BP 133/60; PULSE 71; RESP 16; TEMP 37.1; O2SAT 95
[2023-10-14 04:00] VITALS: BP 136/82; PULSE 86; RESP 16; TEMP 36.5; O2SAT 98
--- NOTE | 2023-10-14 04:55 | PC.NURSE ---
Pt. was admitted to the floor from PACU @ 1850. Admit assessment was completed by Micheal PANDA. Patient denied pain all shift. Left foot & all her toes are still numb, but warm to touch. Will continue plan of care & monitor.
[2023-10-14 05:04] LABS: Hematocrit 33.9 % (36-46); Hemoglobin 11.4 g/dL (12.0-16.0); Mean Corpuscular HGB Conc 33.7 % (30-36); Mean Corpuscular Hemoglobin 32.9 PG (26-34); Mean Corpuscular Volume 97.5 fL (80-100); Platelet Count 209 X10^3/uL (150-400); Red Blood Cell Count 3.48 X10^6/uL (4.0-5.2); White Blood Cell Count 6.5 X10^3/uL (4.5-11.0)
--- NOTE | 2023-10-14 07:44 | P.PN_ITS ---
Subjective Subjective Date Patient Seen: 10/14/23 Time Patient Seen: 07:45 Interval history: Patient states her foot and ankle are still numb. She denies pain. She is having no fever or chills. No nausea or vomiting. Exam Vital Signs (past 8 hours): - 10/14/23 00:19 10/14/23 04:00 Temperature 98.8 F 97.7 F Pulse Rate 71 86 Respiratory Rate 16 16 Blood Pressure 133/60 136/82 Pulse Oximetry 95 98 Oxygen Flow Rate 0 0 Oxygen Delivery Method Room Air Oxygen Flow Rate 0 Narrative Exam Narrative: 73-year-old female resting comfortably in bed in no apparent distress. Sensation grossly intact to light touch. Good capillary refill. Splint is in place. Const General: cooperative and comfortable Nutritional Appearance: average body habitus Resp Effort & Inspection: normal respiratory effort and able to speak in complete sentences Objective Labs 10/14/23 04:36 Labs: Laboratory Results - last 24 hr 10/14/23 04:36 WBC 6.5 RBC 3.48 L Hgb 11.4 L Hct 33.9 L MCV 97.5 MCH 32.9 MCHC 33.7 RDW 16.0 H Plt Count 209 PFSH Medical History (Updated 10/12/23 @ 09:55 by Valorie Garcia RN) Eczema Carotid artery stenosis Hearing loss Cancer GERD (gastroesophageal reflux disease) Esophageal varices Chronic kidney disease Depression DVT (deep venous thrombosis) Cirrhosis HLD (hyperlipidemia) HTN (hypertension) Fracture of left distal radius (2018) History of transcatheter aortic valve replacement (TAVR) (10/27/20) Chronic liver failure TIA (transient ischemic attack) (~2008) Osteoporosis Surgical History (Updated 10/12/23 @ 09:55 by Valorie Garcia RN) History of left-sided carotid endarterectomy (09/2019) Hx of tonsillectomy History of esophagogastroduodenoscopy (EGD) Hx of colonoscopy History of cataract extraction History of open reduction and internal fixation (ORIF) procedure (09/22/23) Social History household members: none Smoking Status: Never smoker alcohol intake: current Assessment & Plan Post-op Postoperative Procedures: Procedures Operation Date: 10/13/23 15:15 Actual Procedure Side Surgeon p ORIF Ankle Fracture Left Walter Garsia MD Postoperative day: 1 Postoperative status narrative: Stable status post revision open reduction internal fixation left ankle fracture Postoperative plan narrative: Continue home meds Multimodal pain management Given her difficulties maintaining a nonweightbearing status after her initial surgery I want to get her set up for discharge to a shelter facility for at least a short period of time to allow her fracture sometime to heal given her independent home living situation The patient has a very active yazdanism community who will help with logistics after she returns home from the shelter facility and aid her with maintaining her home until she can return home to convalesce there Quality VTE Deep Vein Thrombosis/Pulmonary Embolism Present on Admission: No
[2023-10-14] MEDS: SODIUM CHLORIDE 0.9% FLUSH 10 ML IV ×2 (08:25→21:13)
[2023-10-14 08:41] VITALS: BP 167/56; PULSE 89; RESP 20; TEMP 36.4; O2SAT 99
--- NOTE | 2023-10-14 10:05 | PT.IIE ---
Current Diagnoses Displaced bimalleolar fracture of left lower leg, initial encounter for closed fracture (10/13/23) Surgery Performed Operation Date: 10/13/23 15:15 Actual Procedures p ORIF Ankle Fracture(Left) - Walter Garsia MD Surgical History (Last Updated 10/12/23 @ 09:55 by Valorie Garcia, RN) History of cataract extraction History of esophagogastroduodenoscopy (EGD) History of left-sided carotid endarterectomy (09/2019) History of open reduction and internal fixation (ORIF) procedure (09/22/23) Hx of colonoscopy Hx of tonsillectomy Medical History (Last Updated 10/12/23 @ 09:55 by Valorie Garcia, RN) Cancer Carotid artery stenosis Chronic kidney disease Chronic liver failure Cirrhosis Depression DVT (deep venous thrombosis) Eczema Esophageal varices Fracture of left distal radius (2018) GERD (gastroesophageal reflux disease) Hearing loss History of transcatheter aortic valve replacement (TAVR) (10/27/20) HLD (hyperlipidemia) HTN (hypertension) Osteoporosis TIA (transient ischemic attack) (~2008) Physical Therapy Inpatient Evaluation/Re-Eval M1 PT/OT-IP Prior Functional Status Start: 10/14/23 08:35 Freq: NEEDED Status: Active Protocol: Document 10/14/23 09:22 AMB (Rec: 10/14/23 10:04 AMB [id number]) Medical Review Prior Functional Status Medical History Reviewed Yes Communication WFL Mobility and Gait Prior to 2 weeks ago, patient was living alone ambulating without assistive device Social History Household Members none Living Arrangements House Number of Floors (Floors) One Floor Number of Stairs To Enter/Railing? 2 steps Home Environment Standard Height Toilet Home Equipment Front Wheel Walker,Manual Wheelchair,Shower Seat without Backrest Employment Status Retired Additional Social History Comment Pt lives alone but has a very active yarsanism family M2 PT-IP Current Condition Start: 10/14/23 08:35 Freq: NEEDED Status: Active Protocol: Document 10/14/23 09:22 AMB (Rec: 10/14/23 10:04 AMB [id number]) Physical Therapy Current Condition Current Condition Evaluation Date 10/14/23 Treatment Diagnosis L ankle fx fixation--NWB Onset Date 10/13/23 M3 PT-IP Subjective Start: 10/14/23 08:35 Freq: NEEDED Status: Active Protocol: Document 10/14/23 09:22 AMB (Rec: 10/14/23 10:04 AMB [id number]) Subjective Physical Therapy Visit Type Type Initial Evaluation Visit Start Time 08:45 Visit Stop Time 09:15 Total Visit Minutes 30 Physical Therapy Visit Comments Patient Comments Pt willing to get up, I really don't want to go to rehab unless I absolutely have to Therapy Pain Assessment Pain When Pain Assessed At Rest Pain Present Pain Present Denied Pain M4 PT-IP Mobility and Gait Start: 10/14/23 08:35 Freq: NEEDED Status: Active Protocol: Document 10/14/23 09:22 AMB (Rec: 10/14/23 10:04 AMB [id number]) PT-Bed Mobility Assessment Rolling Type of Rolling Log Rolling Level of Assist Independent Supine to Sit Supine to Sit Independent Sit to Supine Sit to Supine Independent Scooting Scooting to Edge of Bed Independent PT-Transfer Assessment Sit to and From Stand Sit to and from Stand Contact Guard Assistance Equipment Transfer Assistive Device Gait Belt,Front Wheeled Walker Transfers Transfer Destination Bedside Commode Transfer Technique Stand Pivot Transfer Ability Level of Assist Contact Guard Assistance Comments Mobility Comments Deedee stood up from the bed with ease, she was able to maintain her weightbearing precautions while performing a stand pivot transfer to the bed side commode with a FWW and CGA. She was independent with all bed mobility. Gait Assessment Comments Gait Comments not assessed at this time due to weightbearing precautions PT-Balance Assessment Sitting Balance and Reactions Static Sitting Balance Ability Good Dynamic Sitting Balance Ability Good M5 PT-IP Objective Assessments Start: 10/14/23 08:35 Freq: NEEDED Status: Active Protocol: Document 10/14/23 09:22 AMB (Rec: 10/14/23 10:04 AMB [id number]) Orientation Orientation/Cognition Level of Alertness Alert Gross Range of Motion Upper Extremity ROM Assessment Within Functional Limits Lower Extremity ROM Assessment Left Impaired Strength Upper Extremity Strength Assessment Within Functional Limits Lower Extremity Strength Assessment Left Impaired Comments Strength Comments L ankle is splinted and wrapped in boni bandage M6 PT-IP Treatment Start: 10/14/23 08:35 Freq: NEEDED Status: Active Protocol: Document 10/14/23 09:22 AMB (Rec: 10/14/23 10:04 AMB [id number]) Physical Therapy Treatment Education Education Provided Precautions,Weight Bearing Status,Safety Other Treatments Other Treatment Performed ankle pumps on the R M7 PT-IP Assessment and Plan Start: 10/14/23 08:35 Freq: NEEDED Status: Active Protocol: Document 10/14/23 09:22 AMB (Rec: 10/14/23 10:04 AMB [id number]) PT Summary Assessment and Plan Potential Rehabilitation Potential Good Status of Condition at Evaluation Stable Summary Impairments ROM,Strength,Transfers,Gait, Activity Tolerance Assessment Summary Deedee had her second surgery for her L ankle fracture. Her first surgery was 2 weeks ago but she was unable to maintain her non weightbearing status at home ( she lives alone). Her biggest struggle was the bathroom, as there is not really room in her bathroom for the kneeling walker. She has a kneeling walker, a FWW and a manual wheelchair at home. She has 2 steps to enter. Today she was able to perform her bed mobility independently. She was able to perform a stand pivot transfer with CGA from the bed to the bedside commode and back to the bed while maintaining her precautions. Discussed home setup and rehab options. Patient is very motivated to return home, but this PT is hesitant to recommend that discharge option due to her previous failure at home. Would recommend SNF at this time due to pt's inability to get into or out of her home independently and living alone and liklihood of surgery to fail again. Goals Bed Mobility Goal Independent Transfer Goal Standby Assistance Days to Meet Goals 4 Frequency of Treatment Frequency Of Treatment Twice a Day Treatment Plan Physical Therapy Treatment Plan Transfer Training,Gait Training,Therapeutic Exercise Weight Bearing Status Weight Bearing Status Non-Weight Bearing Recommendations To Nursing Amount of Assist Needed 1 Person Assist Discharge Recommendations PT Discharge Recommendations SNF Rehab Equipment Needed for Home Before bed side commode Discharge Transportation Needs at Discharge Private Vehicle
--- NOTE | 2023-10-14 12:03 | OT.IP.EVAL ---
Current Diagnoses Displaced bimalleolar fracture of left lower leg, initial encounter for closed fracture (10/13/23) Surgery Performed Operation Date: 10/13/23 15:15 Actual Procedures p ORIF Ankle Fracture(Left) - Walter Garsia MD Past Medical History (Last Updated 10/12/23 @ 09:55 by Valorie Garcia, RN) Cancer Carotid artery stenosis Chronic kidney disease Chronic liver failure Cirrhosis Depression DVT (deep venous thrombosis) Eczema Esophageal varices Fracture of left distal radius (2018) GERD (gastroesophageal reflux disease) Hearing loss History of transcatheter aortic valve replacement (TAVR) (10/27/20) HLD (hyperlipidemia) HTN (hypertension) Osteoporosis TIA (transient ischemic attack) (~2008) Surgical History (Last Updated 10/12/23 @ 09:55 by Valorie Garcia RN) History of cataract extraction History of esophagogastroduodenoscopy (EGD) History of left-sided carotid endarterectomy (09/2019) History of open reduction and internal fixation (ORIF) procedure (09/22/23) Hx of colonoscopy Hx of tonsillectomy Occupational Therapy Inpatient Evaluation/Re-Eval M1 PT/OT-IP Prior Functional Status Start: 10/14/23 12:11 Freq: NEEDED Status: Active Protocol: Document 10/14/23 12:12 [facility] (Rec: 10/14/23 12:41 [facility] [id number]) Medical Review Prior Functional Status Medical History Reviewed Yes Communication WFL Mobility and Gait Prior to 2 weeks ago, patient was living alone ambulating without assistive device and completely independent with her her needs. Activities of Daily Living and IADL's Completely independent with ADL, IADL, drives and takes care for her 3 dogs. Social History Household Members none Living Arrangements House Number of Floors (Floors) One Floor Number of Stairs To Enter/Railing? 2 steps Home Environment Standard Height Toilet,Walk in Shower Home Equipment Front Wheel Walker,Manual Wheelchair,Shower Seat without Backrest,Grab Bars Near Toilet Employment Status Retired Additional Social History Comment Pt lives alone but has a very active caodaism family. M2 OT-IP Current Condition Start: 10/14/23 12:11 Freq: Status: Active Protocol: Document 10/14/23 12:12 [facility] (Rec: 10/14/23 12:41 [facility] [id number]) Occupational Therapy Current Condition Current Condition Evaluation Date 12/21/23 Treatment Diagnosis S/P L ORIF revision Diagnosis Onset Date 10/13/23 Weight Bearing Status Weight Bearing Status Non-Weight Bearing Allowed Weight Bearing Amount (enter % NWB LLE or #) (%) M3 OT- IP Subjective and Pain Start: 10/14/23 12:11 Freq: Status: Active Protocol: Document 10/14/23 12:12 [facility] (Rec: 10/14/23 12:41 [facility] [id number]) OT- Subjective Occupational Therapy Visit Type Type Initial Evaluation Visit Start Time 11:20 Visit Stop Time 12:03 Total Visit Minutes 43 Occupational Therapy Visit Comments Patient Comments Pt agreed to get up to use the BSC. Patient/Caregiver Goals Pt now agreed to go to skilled rehab. OT Pain Assessment Pain When Pain Assessed At Rest Pain Present Pain Present Denied Pain M4 OT- IP ADL's Start: 10/14/23 12:11 Freq: Status: Active Protocol: Document 10/14/23 12:12 [facility] (Rec: 10/14/23 12:41 [facility] [id number]) OT IMV-Akfj-Gdizuty General Evaluation Self-Feeding Ability Independent OT ADL-Grooming General Evaluation Areas Needing Assistance Retrieving/Set-up of Grooming Items Comments OT Grooming Comments Pt able to do while in the recliner after set-up. OT ADL-Oral Care General Eval Oral Care Ability Independent OT ADL-Dressing General Eval Lower Body Dressing Ability Moderate Assistance Areas Needing Assistance Underpants/Brief,Socks Comments OT Dressing Comments Assist to help hailey her brief over her feet and assist for balance while pulling up clothing over her hips. OT ADL-Toileting General Evaluation Toileting Ability Minimal Assistance,Moderate Assistance Areas Needing Assistance Manage Clothing Comments OT Toileting Comments Assist to get clothing over her feet and for her balance while pulling up her brief. OT ADL-Bathing Comments OT Bathing Comments Pt states at home has had someone come to assist her with sponge bathing from the toilet. M5 OT- IP IADL's Start: 10/14/23 12:11 Freq: Status: Active Protocol: Document 10/14/23 12:12 [facility] (Rec: 10/14/23 12:41 [facility] [id number]) OT-Instrumental Activities of Daily Living Deficits IADL Deficits Identified Deficits Home Safety Awareness Awareness of Need for Assistance at Home Good Awareness Ability to Problem Solve Emergency Able to Problem Solve Situations Medication Management Medication Management Comments Pt states puts her 15 pills in small water cups for the month and place them up in the cabinets so that her animals will not get to it and also has another pill organizer that she uses at night. Money Management Money Management Comments Pt states does automatic payment. Meal Preparation Meal Preparation Comments At this time pt would need assist. Fuel Agent Fuel Agent Comments Pt will require assist at this time. Driving Driving Concerns Identified Regarding Safety M6 OT- IP Functional Cognition Start: 10/14/23 12:11 Freq: Status: Active Protocol: Document 10/14/23 12:12 [facility] (Rec: 10/14/23 12:41 [facility] [id number]) Cognitive Factors Limiting Selfcare Function Cognitive Ability Level of Alertness Alert Patient Orientation Name,Age,Birthday,Month,Date, Year,Day of Week,Place, Situation Attention Span Ability Capable of Focused Attention, Capable of Sustained Attention Ability to Follow Commands Able to Follow One Step Commands Memory Description Short Term Impaired Problem Solving Ability Needs Assist to Identify Solutions Executive Function Ability Unable to Remember Details Cognitive Tests SLUMS Pt scored 23/30 which implies mild neurocognitive disorders. Pt able to recall 3/5 objects after time passed, not able to state 4 digit number backwards, not able to draw the hands of the clock correctly after time given, and able to answer 3/4 questions right after paragraph read. Pt needing increased time to answer questions overall. Cognitive Comments Cognitive Assessment Comments Pt able to follow commands but a little slow to respond and needing repetition. Pt is also hard of hearing and does not have her hearing aids present. OT- Vision and Hearing OT- Hearing Assessment OT- Hearing Assessment Hearing Impaired,Use of Hearing Aids OT- Vision Assessment Visual Acuity Glasses All The Time Visual Attentiveness WFL Occular Pursuits WFL Visual Convergence WFL M7 OT- IP Mobility and Balance Start: 10/14/23 12:11 Freq: Status: Active Protocol: Document 10/14/23 12:12 [facility] (Rec: 10/14/23 12:41 [facility] [id number]) OT- Bed Mobility Assessment Supine to Sit Supine to Sit Assist Standby Assistance OT-Transfer Assessment Sit to and From Stand Sit to and from Stand Minimal Assistance Transfers Transfer Ability Minimal Assistance Technique Transfer Destination Bed,Bedside Commode,Chair Transfer Technique Stand Step Pivot Devices Transfer Assistive Devices Gait Belt,Front Wheeled Walker Comments Mobility Comments Pt able to get to the edge of the bed. CGA/GARRY to stand to FWW and GARRY for balance while hopping to the BSC. Pt is unsteady and needing assist for her balance when getting to the recliner. Pt bathroom is not accessible for her knee scooter or wc at this time and has a hard time to get into the bathroom. OT- Balance Assessment Sitting Balance and Reactions Static Sitting Balance Ability Good Dynamic Sitting Balance Ability Good Standing Balance and Reactions Static Standing Balance Ability Fair Dynamic Standing Balance Ability Poor M8 OT- IP Objective Assessments Start: 10/14/23 12:11 Freq: Status: Active Protocol: Document 10/14/23 12:12 [facility] (Rec: 10/14/23 12:41 [facility] [id number]) OT Gross Range of Motion Upper Extremity Range of Motion Assessment Within Functional Limits OT Strength Upper Extremity Strength Assessment Within Functional Limits OT-Muscle Tone Assessment Muscle Tone WNL Yes M9 OT- IP Assessment and Plan Start: 10/14/23 12:11 Freq: Status: Active Protocol: Document 10/14/23 12:12 [facility] (Rec: 10/14/23 12:41 [facility] [id number]) OT Summary Assessment and Plan Potential Rehabilitation Potential Good Analytic Complexity at Evaluation Moderate Summary OT Impairments Balance,Functional Mobility, Dressing,Toileting,Bathing, Toilet Transfers,Shower Transfers,Activity Tolerance Progress Towards Goals Slow Progress due to Medical Issues,Slow Progress due to Activity Tolerance Assessment Summary Pt MOD complexity and main barriers steps, decreased balance, activity tolerance, and needing assist for ADL needs. In addition, pt BP dropped while getting from supine to sit and complained of feeling a little whoozy, pt 's nurse notified. Pt will greatly benefit from skilled rehab. Goals Grooming Goal Independent Dressing Goal Independent Toileting Goal Independent Bathing Goal Independent Toilet Transfer Goal Independent Shower Transfer Goal Independent Days to Meet Goals 20 Frequency of Treatment Frequency Of Treatment Once a Day Treatment Plan OT Treatment Plan ADL Training,Functional Mobility,Patient/Family Education,Discharge Planning Discharge Recommendations OT Discharge Recommendations SNF Rehab Transportation Needs at Discharge Wheelchair/Cabulance
[2023-10-14 13:00] VITALS: BP 146/57; PULSE 77; RESP 19; TEMP 36.1; O2SAT 96
[2023-10-14] MEDS: ASPIRIN EC 81 MG TABLET PO ×2 (14:33→21:09)
[2023-10-14] MEDS: TRAMADOL 50 MG TABLET PO (14:49)
--- NOTE | 2023-10-14 16:00 | CM.DANOTE ---
Initial DCP Assessment Visit Reviewed EMR and team rounds for pt's medical status. Did not have time to meet with pt in person, DCP will continue to assess and review her progress. SNF rehab has already been identified by both pt and PT/OT due to living alone, limited support, and the high risk of re-injuring her new surgical revision completed yesterday, 10/13/21. Payor: [employer] Attending: Dr. Garsia Pt is a 73 year-old F who had an open reduction internal fixation surgery of her left bimalleoler ankle fracture on 09/22/23. At her 2-week Ortho f/u visit, imaging showed fixation failure, and she was scheduled for surgical repair of the previous ankle fixation. Post-op she is having difficulty bearing weight, and Ortho/PT recommend SNF rehab in order to isolate the ankle, and have assistance so as to not damage the new surgical repair. Pt will benefit from continued PT/OT in the SNF setting prior to returning home to her independent living status. She also has a very strong and involved latter day community who is already making plans to assist her when she does return home. DCP will continue to follow and assist with SNFa coordination and disposition. PASSAR not yet completed, will need to discuss further w/pt which SNF she prefers. Discharge Planning/Care Management CM Discharge Assessment Start: 10/14/23 15:55 Freq: Status: Active Protocol: Document 10/14/23 15:56 DPL (Rec: 10/14/23 16:00 DPL [id number]) Discharge Planning Assessment Assigned [employer] Advance Directives? Yes Advance Directives on File No History Provided By Medical Record Has Patient been admitted in last 30 No days? Prior Living Arrangements House Household Members none Type of transporation used prior to Drives own vehicle admit Independent with ADL's Yes Is patient alert and oriented? Yes Comment N/A Caregiver for Another No Comment N/A DME Already Rented / Owned FWW / Walker Patient/Family Preference [facility] Facility Comment Will need to confirm her preference for which SNF she prefers. Barriers to Discharge No Discharge Plan [facility] Facility Community Services Physical Therapy,Occupational Therapy Transportation Arrangement SNF Additional Comment Not yet initiated. If patient plan is SNF: Has PASSR been No completed? Medicare Choice List Provided No SNF/HH Preference Will need to confirm w/pt. Has Agency SNF been contacted No Whiteboard Updated in Patient Room with No name and ext. # of Technician [employer] Review Status In Process Please Provide Date Initial DC 10/14/23 Assessment Was Performed
--- NOTE | 2023-10-14 16:10 | PT.IPTN ---
Current Diagnoses Displaced bimalleolar fracture of left lower leg, initial encounter for closed fracture (10/13/23) Surgery Performed Operation Date: 10/13/23 15:15 Actual Procedures p ORIF Ankle Fracture(Left) - Walter Garsia MD Physical Therapy Treatment Note M2 PT-IP Current Condition Start: 10/14/23 08:35 Freq: NEEDED Status: Active Protocol: Document 10/14/23 09:22 AMB (Rec: 10/14/23 10:04 AMB [id number]) Physical Therapy Current Condition Current Condition Evaluation Date 10/14/23 Treatment Diagnosis L ankle fx fixation--NWB Onset Date 10/13/23 M3 PT-IP Subjective Start: 10/14/23 08:35 Freq: NEEDED Status: Active Protocol: Document 10/14/23 16:29 TS (Rec: 10/14/23 16:37 TS [id number]) Subjective Physical Therapy Visit Type Type Treatment Note Visit Start Time 16:10 Visit Stop Time 16:28 Total Visit Minutes 18 Number of HOTEL NIGHT AUDITOR Visits 1 Physical Therapy Visit Comments Patient Comments Pt found resting in bed, reports had just been up with nursing, is agreeable to PT. M4 PT-IP Mobility and Gait Start: 10/14/23 08:35 Freq: NEEDED Status: Active Protocol: Document 10/14/23 16:29 TS (Rec: 10/14/23 16:37 TS [id number]) PT-Bed Mobility Assessment Rolling Type of Rolling Log Rolling Level of Assist Independent Supine to Sit Supine to Sit Independent Sit to Supine Sit to Supine Independent Scooting Scooting to Edge of Bed Independent Scooting Up and Down in Bed Independent PT-Transfer Assessment Sit to and From Stand Sit to and from Stand Contact Guard Assistance Equipment Transfer Assistive Device Gait Belt,Front Wheeled Walker Transfers Transfer Technique Stand Step Pivot Transfer Ability Level of Assist Contact Guard Assistance Comments Mobility Comments supine to sit Ind with BUE support. Sit to stand with FWW CGA, pt demonstrates good awareness of her NWB precaution. She transferred to knee scooter CGA with use of FWW, while placing knee on scooter required some stabilization of scooter. She propelled scooter in hallway ~ 200'SBA with good management. Sit to supine back into bed Ind, pt scooted to HOB Ind with RLE assist. Pt was left in bed, all needs met, RN notified. Gait Assessment Comments Gait Comments Propelled knee scooter. PT-Balance Assessment Sitting Balance and Reactions Static Sitting Balance Ability Good Dynamic Sitting Balance Ability Good Standing Balance and Reactions Static Standing Balance Ability Good Dynamic Standing Balance Ability Fair Device Used FWW M5 PT-IP Objective Assessments Start: 10/14/23 08:35 Freq: NEEDED Status: Active Protocol: Document 10/14/23 09:22 AMB (Rec: 10/14/23 10:04 AMB [id number]) Orientation Orientation/Cognition Level of Alertness Alert Gross Range of Motion Upper Extremity ROM Assessment Within Functional Limits Lower Extremity ROM Assessment Left Impaired Strength Upper Extremity Strength Assessment Within Functional Limits Lower Extremity Strength Assessment Left Impaired Comments Strength Comments L ankle is splinted and wrapped in boni bandage M6 PT-IP Treatment Start: 10/14/23 08:35 Freq: NEEDED Status: Active Protocol: Document 10/14/23 16:29 TS (Rec: 10/14/23 16:37 TS [id number]) Physical Therapy Treatment Education Education Provided Precautions,Weight Bearing Status,Safety M7 PT-IP Assessment and Plan Start: 10/14/23 08:35 Freq: NEEDED Status: Active Protocol: Document 10/14/23 16:29 TS (Rec: 10/14/23 16:37 TS [id number]) PT Summary Assessment and Plan Potential Rehabilitation Potential Good Summary Impairments ROM,Strength,Transfers,Gait, Activity Tolerance Progress Towards Goals Progressing Toward Goals Assessment Summary Deedee is progressing well with her mobility. She is CGA for sit to stand with FWW, she demonstrates good awareness of her NWB status. She transferred to knee scooter CGA with use of FWW. She propelled scooter SBA and demonstrates good management of device. PT continues to recommend SNF rehab at this time before safe d/c home. Goals Bed Mobility Goal Independent Transfer Goal Standby Assistance Days to Meet Goals 4 Frequency of Treatment Frequency Of Treatment Twice a Day Treatment Plan Physical Therapy Treatment Plan Transfer Training,Gait Training,Therapeutic Exercise Weight Bearing Status Weight Bearing Status Non-Weight Bearing Recommendations To Nursing Amount of Assist Needed 1 Person Assist Discharge Recommendations PT Discharge Recommendations SNF Rehab Equipment Needed for Home Before bed side commode Discharge Transportation Needs at Discharge Private Vehicle
[2023-10-14 16:17] VITALS: BP 146/53; PULSE 82; RESP 19; TEMP 36.3; O2SAT 98
[2023-10-14] MEDS: PANTOPRAZOLE DR 40 MG TABLET PO (18:30)
[2023-10-14] MEDS: CITALOPRAM 10 MG TABLET 30 MG PO (18:30)
[2023-10-14] MEDS: GABAPENTIN 300 MG CAPSULE PO (18:30)
[2023-10-14] MEDS: AMLODIPINE 5 MG TABLET PO (18:30)
[2023-10-14 19:10] VITALS: BP 143/68; PULSE 82; RESP 17; TEMP 36.2; O2SAT 96
[2023-10-14] MEDS: OXYCODONE IR 5 MG TABLET PO (19:33)
[2023-10-14] MEDS: ACETAMINOPHEN 325 MG TABLET 650 MG PO (19:33)
[2023-10-14] MEDS: RIFAXIMIN 200 MG TABLET 500 MG PO (21:09)
[2023-10-14] MEDS: ATORVASTATIN 20 MG TABLET PO (21:09)
[2023-10-14] MEDS: PROPRANOLOL 10 MG TABLET 20 MG PO (21:09)
[2023-10-15] MEDS: ACETAMINOPHEN 325 MG TABLET 650 MG PO ×2 (04:22→20:00)
[2023-10-15 04:26] VITALS: BP 135/49; PULSE 67; RESP 17; TEMP 36.3; O2SAT 97
[2023-10-15] MEDS: PANTOPRAZOLE DR 40 MG TABLET PO (05:35)
--- NOTE | 2023-10-15 07:42 | P.PN_ITS ---
Subjective Subjective Date Patient Seen: 10/15/23 Time Patient Seen: 07:00 Interval history: Patient is a pleasent 73 year old female who is POD #2 s/p revision open reduction internal fixation of left ankle fracture with Dr. Garsia. Today she reports she is doing well. Happy with her progress so far. Has been doing well with PT and getting around with her walker, she is concerned about getting around at home on her own though due to her walker not being able to fit into her bathroom. Admits to having severe pain last night but states her pain has been controlled with APAP alone today. Admits to history of blood clots in RLE, no hx of Afib or genetic coagulopathy. Denies chest pain, SOB, fever, chills, nausea, vomiting. Exam Vital Signs (past 8 hours): - 10/15/23 04:26 Temperature 97.3 F L Pulse Rate 67 Respiratory Rate 17 Blood Pressure 135/49 L Pulse Oximetry 97 Oxygen Flow Rate 0 Oxygen Delivery Method Room Air Oxygen Flow Rate 0 Const General: cooperative, healthy appearing and comfortable Resp Effort & Inspection: normal respiratory effort and able to speak in complete sentences Cardio Rate: regular rate Skin General: no rashes or lesions noted Other: Plaster splint, covered with boni bandage in place, clean and dry. Neuro Other: Sensation intact to bilateral lower extremities. Extrem Other: 5/5 strength with dorsi and plantar flexion. Able to flex and extend knee actively without pain. Objective Labs 10/14/23 04:36 [facility] Medical History (Updated 10/12/23 @ 09:55 by Valorie Garcia RN) Eczema Carotid artery stenosis Hearing loss Cancer GERD (gastroesophageal reflux disease) Esophageal varices Chronic kidney disease Depression DVT (deep venous thrombosis) Cirrhosis HLD (hyperlipidemia) HTN (hypertension) Fracture of left distal radius (2018) History of transcatheter aortic valve replacement (TAVR) (10/27/20) Chronic liver failure TIA (transient ischemic attack) (~2008) Osteoporosis Surgical History (Updated 10/12/23 @ 09:55 by Valorie Garcia RN) History of left-sided carotid endarterectomy (09/2019) Hx of tonsillectomy History of esophagogastroduodenoscopy (EGD) Hx of colonoscopy History of cataract extraction History of open reduction and internal fixation (ORIF) procedure (09/22/23) Social History household members: none Smoking Status: Never smoker alcohol intake: current Assessment & Plan Post-op Postoperative Procedures: Procedures Operation Date: 10/13/23 15:15 Actual Procedure Side Surgeon p ORIF Ankle Fracture Left Walter Garsia MD Postoperative day: 2 Postoperative status: doing well Postoperative status narrative: Stable status post revision open reduction internal fixation left ankle fracture Postoperative plan narrative: Continue home meds Multimodal pain management Given her difficulties maintaining a non-weightbearing status after her initial surgery I want to get her set up for discharge to a [place] [facility] [place] for at least a short period of time to allow her fracture sometime to heal given her independent home living situation The patient has a very active bahai community who will help with logistics after she returns home [place] the [place] [facility] [place] and aid her with maintaining her home until she can return home to convalesce there Quality VTE Deep Vein Thrombosis/Pulmonary Embolism Present on Admission: No
[2023-10-15 08:20] VITALS: BP 121/52; PULSE 65; RESP 19; TEMP 35.8; O2SAT 99
[2023-10-15] MEDS: CITALOPRAM 10 MG TABLET 30 MG PO (09:17)
[2023-10-15] MEDS: PROPRANOLOL 10 MG TABLET 20 MG PO ×2 (09:17→20:00)
[2023-10-15] MEDS: ASPIRIN EC 81 MG TABLET PO ×2 (09:17→20:00)
[2023-10-15] MEDS: AMLODIPINE 5 MG TABLET PO (09:18)
[2023-10-15] MEDS: RIFAXIMIN 200 MG TABLET 500 MG PO (09:18)
[2023-10-15] MEDS: GABAPENTIN 300 MG CAPSULE PO (09:18)
[2023-10-15] MEDS: SODIUM CHLORIDE 0.9% FLUSH 10 ML IV ×2 (09:20→20:01)
[2023-10-15] MEDS: OXYCODONE IR 5 MG TABLET PO ×2 (10:33→20:00)
--- NOTE | 2023-10-15 11:20 | PT.IPTN ---
Current Diagnoses Displaced bimalleolar fracture of left lower leg, initial encounter for closed fracture (10/13/23) Surgery Performed Operation Date: 10/13/23 15:15 Actual Procedures p ORIF Ankle Fracture(Left) - Walter Garsia MD Physical Therapy Treatment Note M2 PT-IP Current Condition Start: 10/14/23 08:35 Freq: NEEDED Status: Active Protocol: Document 10/14/23 09:22 AMB (Rec: 10/14/23 10:04 AMB [id number]) Physical Therapy Current Condition Current Condition Evaluation Date 10/14/23 Treatment Diagnosis L ankle fx fixation--NWB Onset Date 10/13/23 M3 PT-IP Subjective Start: 10/14/23 08:35 Freq: NEEDED Status: Active Protocol: Document 10/15/23 11:20 AB (Rec: 10/15/23 12:27 AB [id number]) Subjective Physical Therapy Visit Type Type Treatment Note Visit Start Time 11:20 Visit Stop Time 11:45 Total Visit Minutes 25 Number of COUNTY AGENT Visits 0 Physical Therapy Visit Comments Patient Comments agreeable to do PT Therapy Pain Assessment Pain When Pain Assessed At Rest Pain Present Pain Present Pain Reported Location Left Ankle Intensity 5 Scale Used Numeric (0 - 10) Pain Management Techniques Distraction,Elevation, Modification of Treatment,Re- positioning,Timing of Activity with Medications M4 PT-IP Mobility and Gait Start: 10/14/23 08:35 Freq: NEEDED Status: Active Protocol: Document 10/15/23 11:20 AB (Rec: 10/15/23 12:27 AB [id number]) PT-Bed Mobility Assessment Supine to Sit Supine to Sit Independent Sit to Supine Sit to Supine Independent PT-Transfer Assessment Sit to and From Stand Sit to and from Stand Contact Guard Assistance,1 Person Assistance,Use of Upper Extremities Equipment Transfer Assistive Device Gait Belt,Front Wheeled Walker Orthotic/Prosthetic Devices or Brace: Yes Transfers Transfer Destination Chair Transfer Technique ambulated Transfer Ability Level of Assist Contact Guard Assistance, Minimal Assistance,1 Person Assistance,Use of Upper Extremities Comments Mobility Comments pt supine in bed and agreeable to do PT. completed supine to sit mod I. educated pt on use of knee scooter and brake management. educated pt on NWB on LLE and how to maintain for sit <>stand and during standing/transfers/ambulation. pt completed sit to stand CGA and required cues to manage knee scooter. ambulated in room using knee scooter CGA and cues for safety and use of knee scooter . pt required assist with backing up and positioning of knee scooter before standing/ sitting on chair. Assessed ambulation using FWW and completed ~ 20 ft CGA to min A . requiring min A towards end of ambulation using FWW with increase R knee flexion and unsteadiness. pt stated that she is tired. pt agreed to stay up on the chair. positioned on the chair . call light and table placed within reach. Gait Assessment Gait Gait Assistance Required: Contact Guard Assist,Minimum Assistance Distance (Feet) 35 Able to Maintain Weight Bearing Status Yes During Gait Assistive Devices Assistive Device Gait Belt,Front Wheeled Walker Orthotic/Prosthetic Devices or Brace: Yes Gait Deviations General Gait Pattern Decreased Stride Length, Decreased Feet Clearance,Step- to Gait Factors Limiting Gait Function Factors Limiting Gait Function Decreased Activity Tolerance, Decreased Strength,Limited Range of Motion,Pain,Poor Balance,Poor Safety Awareness M5 PT-IP Objective Assessments Start: 10/14/23 08:35 Freq: NEEDED Status: Active Protocol: Document 10/14/23 09:22 AMB (Rec: 10/14/23 10:04 AMB [id number]) Orientation Orientation/Cognition Level of Alertness Alert Gross Range of Motion Upper Extremity ROM Assessment Within Functional Limits Lower Extremity ROM Assessment Left Impaired Strength Upper Extremity Strength Assessment Within Functional Limits Lower Extremity Strength Assessment Left Impaired Comments Strength Comments L ankle is splinted and wrapped in boni bandage M6 PT-IP Treatment Start: 10/14/23 08:35 Freq: NEEDED Status: Active Protocol: Document 10/15/23 11:20 AB (Rec: 10/15/23 12:27 AB [id number]) Physical Therapy Treatment Education Education Provided Safety M7 PT-IP Assessment and Plan Start: 10/14/23 08:35 Freq: NEEDED Status: Active Protocol: Document 10/15/23 11:20 AB (Rec: 10/15/23 12:27 AB [id number]) PT Summary Assessment and Plan Potential Rehabilitation Potential Fair Summary Impairments Pain,ROM,Strength,Balance, Coordination,Sensation,Tone, Cognition,Bed Mobility, Transfers,Gait,Activity Tolerance Progress Towards Goals Slow Progress due to Medical Issues,Slow Progress due to Activity Tolerance,Slow Progress - Other Assessment Summary pt requiring CGA to min A with mobility using knee scooter or FWW. pt requiring further training with use of knee scooter for safety. pt will benefit from SNF rehab to improve strength and mobility independence. Goals Transfer Goal Standby Assistance,Front Wheeled Walker Gait Goal Standby Assistance,Front Wheel Walker Gait Distance 50 Other Goals improve transfers and ambulation using knee scooter ~ 100 ft SBA Days to Meet Goals 10 Frequency of Treatment Frequency Of Treatment Twice a Day Treatment Plan Physical Therapy Treatment Plan Transfer Training,Gait Training,Therapeutic Exercise, Balance Retraining,Post Op Education,Discharge Planning, Hot or Cold Pack,Neuromuscular Re-ed,Coordination Retraining ,Manual Therapy Precautions Brace L ankle on soft cast Weight Bearing Status Weight Bearing Status Non-Weight Bearing Allowed Weight Bearing Amount (enter % LLE NWB or #) (%) Recommendations To Nursing Amount of Assist Needed 1 Person Assist Discharge Recommendations PT Discharge Recommendations SNF Rehab Transportation Needs at Discharge Wheelchair/Cabulance
--- NOTE | 2023-10-15 12:03 | OT.IP.TRT ---
Current Diagnoses Displaced bimalleolar fracture of left lower leg, initial encounter for closed fracture (10/13/23) Surgery Performed Operation Date: 10/13/23 15:15 Actual Procedures p ORIF Ankle Fracture(Left) - Walter Garsia MD Occupational Therapy Treatment Note M2 OT-IP Current Condition Start: 10/14/23 12:11 Freq: Status: Active Protocol: Document 10/14/23 12:12 [facility] (Rec: 10/14/23 12:41 [facility] [id number]) Occupational Therapy Current Condition Current Condition Evaluation Date 10/14/23 Treatment Diagnosis S/P L ORIF revision Diagnosis Onset Date 10/13/23 Weight Bearing Status Weight Bearing Status Non-Weight Bearing Allowed Weight Bearing Amount (enter % NWB LLE or #) (%) M3 OT- IP Subjective and Pain Start: 10/14/23 12:11 Freq: Status: Active Protocol: Document 10/15/23 11:52 [facility] (Rec: 10/15/23 12:40 [facility] [id number]) OT- Subjective Occupational Therapy Visit Type Type Treatment Note Visit Start Time 11:52 Visit Stop Time 12:03 Total Visit Minutes 11 Occupational Therapy Visit Comments Patient Comments Pt needing to use the bathroom at this time but agreed to talk to OT regarding what to expect for rehab and equipment needs. Patient/Caregiver Goals To go to skilled rehab. OT Pain Assessment Pain When Pain Assessed At Rest Pain Present Pain Present Denied Pain M4 OT- IP ADL's Start: 10/14/23 12:11 Freq: Status: Active Protocol: Document 10/15/23 11:52 [facility] (Rec: 10/15/23 12:40 [facility] [id number]) OT [id number] General Evaluation Self-Feeding Ability Independent OT ADL-Grooming General Evaluation Grooming Ability Independent OT ADL-Oral Care General Eval Oral Care Ability Independent OT ADL-Dressing Comments OT Dressing Comments Spoke of LB dressing equipment and use of shorts, loose clothing so able to get over her LLE. Also spoke of options to get dress in bed would be easier to follow with LLE NWB status. OT ADL-Toileting Comments OT Toileting Comments Pt not having to go. OT ADL-Bathing Comments OT Bathing Comments Pt not wanting to shower at this time. Use of rolling shower chair would be best for pt to use at this here in the hospital. M5 OT- IP IADL's Start: 10/14/23 12:11 Freq: Status: Active Protocol: Document 10/14/23 12:12 [facility] (Rec: 10/14/23 12:41 [facility] [id number]) OT-Instrumental Activities of Daily Living Deficits IADL Deficits Identified Deficits Home Safety Awareness Awareness of Need for Assistance at Home Good Awareness Ability to Problem Solve Emergency Able to Problem Solve Situations Medication Management Medication Management Comments Pt states puts her 15 pills in small water cups for the month and place them up in the cabinets so that her animals will not get to it and also has another pill organizer that she uses at night. Money Management Money Management Comments Pt states does automatic payment. Meal Preparation Meal Preparation Comments At this time pt would need assist. Money Counter Money Counter Comments Pt will require assist at this time. Driving Driving Concerns Identified Regarding Safety M6 OT- IP Functional Cognition Start: 10/14/23 12:11 Freq: Status: Active Protocol: Document 10/15/23 11:52 [facility] (Rec: 10/15/23 12:40 [facility] [id number]) Cognitive Factors Limiting Selfcare Function Cognitive Comments Cognitive Assessment Comments Pt seems more alert and awake today. M7 OT- IP Mobility and Balance Start: 10/14/23 12:11 Freq: Status: Active Protocol: Document 10/14/23 12:12 [facility] (Rec: 10/14/23 12:41 [facility] [id number]) OT- Bed Mobility Assessment Supine to Sit Supine to Sit Assist Standby Assistance OT-Transfer Assessment Sit to and From Stand Sit to and from Stand Minimal Assistance Transfers Transfer Ability Minimal Assistance Technique Transfer Destination Bed,Bedside Commode,Chair Transfer Technique Stand Step Pivot Devices Transfer Assistive Devices Gait Belt,Front Wheeled Walker Comments Mobility Comments Pt able to get to the edge of the bed. CGA/GARRY to stand to FWW and GARRY for balance while hopping to the BSC. Pt is unsteady and needing assist for her balance when getting to the recliner. Pt bathroom is not accessible for her knee scooter or wc at this time and has a hard time to get into the bathroom. OT- Balance Assessment Sitting Balance and Reactions Static Sitting Balance Ability Good Dynamic Sitting Balance Ability Good Standing Balance and Reactions Static Standing Balance Ability Fair Dynamic Standing Balance Ability Poor M8 OT- IP Objective Assessments Start: 12/21/23 12:11 Freq: Status: Active Protocol: Document 10/14/23 12:12 [facility] (Rec: 10/14/23 12:41 [facility] [id number]) OT Gross Range of Motion Upper Extremity Range of Motion Assessment Within Functional Limits OT Strength Upper Extremity Strength Assessment Within Functional Limits OT-Muscle Tone Assessment Muscle Tone WNL Yes M9 OT- IP Assessment and Plan Start: 10/14/23 12:11 Freq: Status: Active Protocol: Document 10/15/23 11:52 [facility] (Rec: 10/15/23 12:40 [facility] [id number]) OT Summary Assessment and Plan Potential Rehabilitation Potential Good Analytic Complexity at Evaluation Moderate Summary OT Impairments Balance,Functional Mobility, Dressing,Toileting,Bathing, Toilet Transfers,Shower Transfers,Activity Tolerance Progress Towards Goals Progressing Toward Goals Assessment Summary Pt more alert today and able to talk about equipment needs at home, how to take care of her pets and that her restorationism friends will be actively able to assist her. Pt will greatly benefit from skilled rehab to improve on her overall strength including her core. Pt is currently unsteady on her RLE at times, per pt this morning had loss of balance with nursing aid but able to regain her balance. Goals Dressing Goal Independent Toileting Goal Independent Bathing Goal Independent Toilet Transfer Goal Independent Shower Transfer Goal Independent Days to Meet Goals 15 Frequency of Treatment Frequency Of Treatment Once a Day Treatment Plan OT Treatment Plan ADL Training,Functional Mobility,Patient/Family Education,Discharge Planning Discharge Recommendations OT Discharge Recommendations SNF Rehab Transportation Needs at Discharge Wheelchair/Cabulance
--- NOTE | 2023-10-15 13:42 | PC.NURSE ---
Spoke w/ care management regarding why pt was taking abx, Xifaxan. Spoke with pt about why she was taking med and pt stated she was taking med d/t liver disease 10 years ago, and stopped taking me 3 years ago and also stated she did not want to be on the medication unless necessary. Spoke w/ Gamaliel and he okayed to d/c abx and stated there would not be an abx rx when pt d/cs. Updated orders and med list.
--- NOTE | 2023-10-15 14:05 | PT.IPTN ---
Current Diagnoses Displaced bimalleolar fracture of left lower leg, initial encounter for closed fracture (10/13/23) Surgery Performed Operation Date: 10/13/23 15:15 Actual Procedures p ORIF Ankle Fracture(Left) - Walter Garsia MD Physical Therapy Treatment Note M2 PT-IP Current Condition Start: 10/14/23 08:35 Freq: NEEDED Status: Active Protocol: Document 10/14/23 09:22 AMB (Rec: 10/14/23 10:04 AMB [id number]) Physical Therapy Current Condition Current Condition Evaluation Date 10/14/23 Treatment Diagnosis L ankle fx fixation--NWB Onset Date 10/13/23 M3 PT-IP Subjective Start: 10/14/23 08:35 Freq: NEEDED Status: Active Protocol: Document 10/15/23 14:05 AB (Rec: 10/15/23 15:41 AB [email or web address]) Subjective Physical Therapy Visit Type Type Treatment Note Visit Start Time 14:05 Visit Stop Time 14:28 Total Visit Minutes 23 Number of GENERATOR SWITCHBOARD OPERATOR Visits 0 Physical Therapy Visit Comments Patient Comments agreeable to do PT Therapy Pain Assessment Pain When Pain Assessed At Rest Pain Present Pain Present Pain Reported Location Left Ankle Scale Used pain scale not state Pain Management Techniques Distraction,Elevation, Modification of Treatment,Re- positioning,Timing of Activity with Medications M4 PT-IP Mobility and Gait Start: 10/14/23 08:35 Freq: NEEDED Status: Active Protocol: Document 10/15/23 14:05 AB (Rec: 10/15/23 15:41 AB [id number]) PT-Transfer Assessment Sit to and From Stand Sit to and from Stand Standby Assistance,Contact Guard Assistance,1 Person Assistance,Use of Upper Extremities Equipment Transfer Assistive Device Gait Belt Orthotic/Prosthetic Devices or Brace: Yes Comments Mobility Comments pt sitting on the chair and agreeable to do PT. reviewed techniques for using knee scooter. pt completed sit to stand from chair CGA and was able to position LE on scooter . pt ambulated in room using knee scooter ~ 35 ft SBA to CGA and cues for techniques and safety. pt sat back on chair and rested. agreed to ambulate again. completed sit to stand SBA but required cues on how to position LE on knee scooter before ambulation . pt completed ambulation using knee scooter SBA to CGA ~ 45 ft. cues for upright posture and maneuvering knee scooter safely. pt sat back on chair. positioned pt on the chair. call light and table placed within reach. Gait Assessment Gait Gait Assistance Required: Standby Assistance,Contact Guard Assist Distance (Feet) 45 Able to Maintain Weight Bearing Status Yes During Gait Assistive Devices Assistive Device Gait Belt Gait Deviations General Gait Pattern Decreased Stride Length, Decreased Feet Clearance Factors Limiting Gait Function Factors Limiting Gait Function Decreased Activity Tolerance, Decreased Strength,Difficulty Following Directions,Limited Range of Motion,Pain,Poor Balance,Poor Safety Awareness M5 PT-IP Objective Assessments Start: 10/14/23 08:35 Freq: NEEDED Status: Active Protocol: Document 10/14/23 09:22 AMB (Rec: 10/14/23 10:04 AMB [id number]) Orientation Orientation/Cognition Level of Alertness Alert Gross Range of Motion Upper Extremity ROM Assessment Within Functional Limits Lower Extremity ROM Assessment Left Impaired Strength Upper Extremity Strength Assessment Within Functional Limits Lower Extremity Strength Assessment Left Impaired Comments Strength Comments L ankle is splinted and wrapped in boni bandage M6 PT-IP Treatment Start: 10/14/23 08:35 Freq: NEEDED Status: Active Protocol: Document 10/15/23 14:05 AB (Rec: 10/15/23 15:41 AB [id number]) Physical Therapy Treatment Education Education Provided Weight Bearing Status,Safety M7 PT-IP Assessment and Plan Start: 10/14/23 08:35 Freq: NEEDED Status: Active Protocol: Document 10/15/23 14:05 AB (Rec: 10/15/23 15:41 AB [id number]) PT Summary Assessment and Plan Potential Rehabilitation Potential Fair Summary Impairments Pain,ROM,Strength,Balance, Coordination,Sensation,Tone, Cognition,Bed Mobility, Transfers,Gait,Activity Tolerance Progress Towards Goals Slow Progress due to Pain,Slow Progress due to Medical Issues,Slow Progress due to Activity Tolerance,Slow Progress - Other Assessment Summary pt requiring SBA to CGA with ambulation using a knee scooter but continues to require cues with all tasks for safety and maintaining NWB on LLE. pt will benefit from SNF rehab to improve mobility independence. Goals Transfer Goal Standby Assistance,Front Wheeled Walker Gait Goal Standby Assistance,Front Wheel Walker Gait Distance 50 Other Goals improve transfers and ambulation using knee scooter ~ 100 ft SBA Days to Meet Goals 10 Frequency of Treatment Frequency Of Treatment Twice a Day Treatment Plan Physical Therapy Treatment Plan Transfer Training,Gait Training,Therapeutic Exercise, Balance Retraining,Post Op Education,Discharge Planning, Hot or Cold Pack,Neuromuscular Re-ed,Coordination Retraining ,Manual Therapy Precautions Brace L ankle on soft cast Weight Bearing Status Weight Bearing Status Non-Weight Bearing Allowed Weight Bearing Amount (enter % LLE NWB or #) (%) Recommendations To Nursing Amount of Assist Needed 1 Person Assist Discharge Recommendations PT Discharge Recommendations SNF Rehab Transportation Needs at Discharge Wheelchair/Cabulance
--- NOTE | 2023-10-15 14:53 | CM.DPNOTE ---
DCP Note OILER BANDER reviewed EMR. Per PT/OT, rec SNF. OILER BANDER met with pt. Pt has Hx of [facility]. Pt would prefer to go there [facility], [facility]. Pt reports likely family or friend could transport her to . OILER BANDER spoke with Jesusita at . CC Nataliia kindly agreed to email initial clinical information. Clinically they can accept her, Jesusita from submitting [employer] auth. OILER BANDER completed PASSR. Provider signature required for level 2 exemption. Plan: pt likely to dc to [facility], [employer] auth pending. Likely transport with friend/family in POV. CM team will continue to follow closely. MEDARDO Menjivar
[2023-10-15] MEDS: ATORVASTATIN 20 MG TABLET PO (20:00)
[2023-10-15 20:55] VITALS: BP 138/52; PULSE 74; RESP 18; TEMP 36.3; O2SAT 96
[2023-10-16 03:50] VITALS: BP 126/47; PULSE 63; RESP 18; TEMP 36; O2SAT 97
[2023-10-16] MEDS: PANTOPRAZOLE DR 40 MG TABLET PO (05:33)
--- NOTE | 2023-10-16 09:13 | CM.DPC ---
Addendum entered by Roya Caro R.N. 10/16/23 15:03: Spoke to Jesusita at [facility], received the [employer] auth, can accept tomorrow, Wednesday. Spoke to patient, and her friend can pick her up at about 1400. Called Jesusita back and let her know. Had Lashon, PAC, sign PASSR. Will need to let orthopedist know so they can do the orders in the am. Original Note: DCP Cont: Called Jesusita over at [facility], and left her a message to follow up with Maranda diaz. Jesusita did call back, stated that she did check the portal for [employer], still pending, may have gone to their provider for review. Jesusita has confirmed acceptance, only can't accept on . Jesusita will call back when she gets auth. Barrier is that it is the weekend and holiday coming up. P: DCP to continue to follow, working on getting patient over to [facility], but auth is pending. Roya Caro RN/Shipping Clerk Packing
[2023-10-16] MEDS: AMLODIPINE 5 MG TABLET PO (09:49)
[2023-10-16] MEDS: CITALOPRAM 10 MG TABLET 30 MG PO (09:49)
[2023-10-16] MEDS: PROPRANOLOL 10 MG TABLET 20 MG PO ×2 (09:49→20:00)
[2023-10-16] MEDS: GABAPENTIN 300 MG CAPSULE PO (09:49)
[2023-10-16] MEDS: ASPIRIN EC 81 MG TABLET PO ×2 (09:49→20:00)
--- NOTE | 2023-10-16 09:51 | P.PN_ITS ---
Subjective Subjective Date Patient Seen: 10/15/23 Time Patient Seen: 07:00 Interval history: Patient is a pleasent 73 year old female who is POD #3 s/p revision open reduction internal fixation of left ankle fracture with Dr. Garsia. Today she reports she is doing well. Happy with her progress so far. Has been doing well with PT and getting around with her walker. Is looking forward to being d/c from hospital, plans to go to a SNF due to concerns about getting around at home on her own due to her walker not being able to fit into her bathroom. Reports a brieif, non painful, poking sensation that has occurred approximately 3x on the anterior ankle. Postop pain has been well controlled with Oxycodone and Tylenol at night, no pain medication needed during the day. Admits to history of blood clots in RLE, no hx of Afib or genetic coagulopathy. Denies chest pain, SOB, fever, chills, nausea, vomiting. Exam Vital Signs (past 8 hours): - 10/16/23 03:50 Temperature 96.8 F L Pulse Rate 63 Respiratory Rate 18 Blood Pressure 126/47 L Pulse Oximetry 97 Oxygen Flow Rate 0 Oxygen Delivery Method Room Air Oxygen Flow Rate 0 Const General: cooperative, healthy appearing and comfortable Resp Effort & Inspection: normal respiratory effort and able to speak in complete sentences Cardio Rate: regular rate Skin General: no rashes or lesions noted Other: Plaster splint, covered with boni bandage in place, clean and dry. Neuro Other: Sensation intact to bilateral lower extremities. Extrem Other: Able to wiggle all toes equally. Able to flex and extend knee actively without pain. Objective Labs 10/14/23 04:36 [facility] Medical History (Updated 10/12/23 @ 09:55 by Valorie Garcia RN) Eczema Carotid artery stenosis Hearing loss Cancer GERD (gastroesophageal reflux disease) Esophageal varices Chronic kidney disease Depression DVT (deep venous thrombosis) Cirrhosis HLD (hyperlipidemia) HTN (hypertension) Fracture of left distal radius (2018) History of transcatheter aortic valve replacement (TAVR) (10/27/20) Chronic liver failure TIA (transient ischemic attack) (~2008) Osteoporosis Surgical History (Updated 10/12/23 @ 09:55 by Valorie Garcia RN) History of left-sided carotid endarterectomy (09/2019) Hx of tonsillectomy History of esophagogastroduodenoscopy (EGD) Hx of colonoscopy History of cataract extraction History of open reduction and internal fixation (ORIF) procedure (09/22/23) Social History household members: none Smoking Status: Never smoker alcohol intake: current Assessment & Plan Post-op Postoperative Procedures: Procedures Operation Date: 10/13/23 15:15 Actual Procedure Side Surgeon p ORIF Ankle Fracture Left Walter Garsia MD Postoperative day: 3 Postoperative status: doing well Postoperative status narrative: Stable status post revision open reduction internal fixation left ankle fracture Postoperative plan narrative: 1) Continue home meds 2) Continue multimodal pain management as needed at night and ASA for DVT prophylaxis. 3) Given her difficulties maintaining a non-weightbearing status after her initial surgery I want to get her set up for discharge to a custodial facility for at least a short period of time to allow her fracture sometime to heal given her independent home living situation. The patient has a very active muslim community who will help with logistics after she returns home from the custodial facility and aid her with maintaining her home until she can return home to convalesce there. Patient is okay to be d/c to SNF once approved by insurance. Quality VTE Deep Vein Thrombosis/Pulmonary Embolism Present on Admission: No
--- NOTE | 2023-10-16 10:40 | PT.IPTN ---
Current Diagnoses Displaced bimalleolar fracture of left lower leg, initial encounter for closed fracture (10/13/23) Surgery Performed Operation Date: 10/13/23 15:15 Actual Procedures p ORIF Ankle Fracture(Left) - Walter Garsia MD Physical Therapy Treatment Note M2 PT-IP Current Condition Start: 10/14/23 08:35 Freq: NEEDED Status: Active Protocol: Document 10/14/23 09:22 AMB (Rec: 10/14/23 10:04 AMB [id number]) Physical Therapy Current Condition Current Condition Evaluation Date 10/14/23 Treatment Diagnosis L ankle fx fixation--NWB Onset Date 10/13/23 M3 PT-IP Subjective Start: 10/14/23 08:35 Freq: NEEDED Status: Active Protocol: Document 10/16/23 10:40 AB (Rec: 10/16/23 12:49 AB [id number]) Subjective Physical Therapy Visit Type Type Treatment Note Visit Start Time 10:40 Visit Stop Time 10:55 Total Visit Minutes 15 Number of RIDING COACH Visits 0 Physical Therapy Visit Comments Patient Comments pt is agreeable to do PT Therapy Pain Assessment Location Left Ankle Intensity 2 Scale Used Numeric (0 - 10) Pain Management Techniques Distraction,Elevation, Modification of Treatment,Re- positioning,Timing of Activity with Medications M4 PT-IP Mobility and Gait Start: 10/14/23 08:35 Freq: NEEDED Status: Active Protocol: Document 10/16/23 10:40 AB (Rec: 10/16/23 12:49 AB [id number]) PT-Transfer Assessment Sit to and From Stand Sit to and from Stand Standby Assistance,1 Person Assistance,Use of Upper Extremities Equipment Transfer Assistive Device Gait Belt Orthotic/Prosthetic Devices or Brace: Yes Comments Mobility Comments pt sitting on the chair. agreeable to do PT. pt completed sit to stand SBA and positioned LLE to knee scooter cued for safety. pt ambulated in room using knee scooter SBA to occasionally CGA during turning and cued to slow down. Completed ~ 35 ft . pt sat back on the chair. refused further ambulation and stated that her RLE is tired . positioned pt on the chair. call light and table placed within reach. Gait Assessment Gait Gait Assistance Required: Standby Assistance,Contact Guard Assist Distance (Feet) 35 Able to Maintain Weight Bearing Status Yes During Gait Assistive Devices Assistive Device Gait Belt Orthotic/Prosthetic Devices or Brace: Yes Factors Limiting Gait Function Factors Limiting Gait Function Decreased Activity Tolerance, Decreased Strength,Limited Range of Motion,Pain,Poor Balance,Poor Safety Awareness M5 PT-IP Objective Assessments Start: 10/14/23 08:35 Freq: NEEDED Status: Active Protocol: Document 10/14/23 09:22 AMB (Rec: 10/14/23 10:04 AMB [id number]) Orientation Orientation/Cognition Level of Alertness Alert Gross Range of Motion Upper Extremity ROM Assessment Within Functional Limits Lower Extremity ROM Assessment Left Impaired Strength Upper Extremity Strength Assessment Within Functional Limits Lower Extremity Strength Assessment Left Impaired Comments Strength Comments L ankle is splinted and wrapped in boni bandage M6 PT-IP Treatment Start: 10/14/23 08:35 Freq: NEEDED Status: Active Protocol: Document 10/16/23 10:40 AB (Rec: 10/16/23 12:49 AB [id number]) Physical Therapy Treatment Education Education Provided Precautions,Safety M7 PT-IP Assessment and Plan Start: 10/14/23 08:35 Freq: NEEDED Status: Active Protocol: Document 10/16/23 10:40 AB (Rec: 10/16/23 12:49 AB [id number]) PT Summary Assessment and Plan Potential Rehabilitation Potential Fair Summary Impairments Pain,ROM,Strength,Balance, Coordination,Sensation,Tone, Cognition,Bed Mobility, Transfers,Gait,Activity Tolerance Progress Towards Goals Slow Progress due to Medical Issues,Slow Progress due to Activity Tolerance Assessment Summary pt improving slowly with ambulation using knee scooter and has improved steadiness and carryover of techniques today compared to yesterday's session. pt continues to have decrease activity tolerance affecting mobility. will continue PT to improve strength and independence. pt has to use a FWW for toileting transfers at home due to her knee scooter not going to fit in. will do ambulation training with FWW next session . Goals Transfer Goal Standby Assistance,Front Wheeled Walker Gait Goal Standby Assistance,Front Wheel Walker Gait Distance 50 Other Goals improve transfers and ambulation using knee scooter ~ 100 ft SBA Days to Meet Goals 10 Frequency of Treatment Frequency Of Treatment Twice a Day Treatment Plan Physical Therapy Treatment Plan Transfer Training,Gait Training,Therapeutic Exercise, Balance Retraining,Post Op Education,Discharge Planning, Hot or Cold Pack,Neuromuscular Re-ed,Coordination Retraining ,Manual Therapy Precautions Brace L ankle on soft cast Weight Bearing Status Weight Bearing Status Non-Weight Bearing Allowed Weight Bearing Amount (enter % LLE NWB or #) (%) Recommendations To Nursing Amount of Assist Needed 1 Person Assist Discharge Recommendations PT Discharge Recommendations SNF Rehab Transportation Needs at Discharge Wheelchair/Cabulance
--- NOTE | 2023-10-16 14:09 | PT.IPTN ---
Current Diagnoses Displaced bimalleolar fracture of left lower leg, initial encounter for closed fracture (10/13/23) Surgery Performed Operation Date: 10/13/23 15:15 Actual Procedures p ORIF Ankle Fracture(Left) - Walter Garsia MD Physical Therapy Treatment Note M2 PT-IP Current Condition Start: 10/14/23 08:35 Freq: NEEDED Status: Active Protocol: Document 10/14/23 09:22 AMB (Rec: 10/14/23 10:04 AMB [id number]) Physical Therapy Current Condition Current Condition Evaluation Date 10/14/23 Treatment Diagnosis L ankle fx fixation--NWB Onset Date 10/13/23 M3 PT-IP Subjective Start: 10/14/23 08:35 Freq: NEEDED Status: Active Protocol: Document 10/16/23 15:03 TS (Rec: 10/16/23 15:14 TS [id number]) Subjective Physical Therapy Visit Type Type Treatment Note Visit Start Time 14:09 Visit Stop Time 14:25 Total Visit Minutes 16 Number of CRAWLER CRANE OPERATOR Visits 1 Physical Therapy Visit Comments Patient Comments pt is agreeable to do PT Therapy Pain Assessment Pain When Pain Assessed During Mobility Pain Present Pain Present Pain Reported M4 PT-IP Mobility and Gait Start: 10/14/23 08:35 Freq: NEEDED Status: Active Protocol: Document 10/16/23 15:03 TS (Rec: 10/16/23 15:14 TS [id number]) PT-Transfer Assessment Sit to and From Stand Sit to and from Stand Standby Assistance,1 Person Assistance,Use of Upper Extremities Equipment Transfer Assistive Device Gait Belt,Front Wheeled Walker Orthotic/Prosthetic Devices or Brace: Yes Comments Mobility Comments Pt found resting in chair, agreeable to PT. Sit to stand with FWW SBA, pt NWB on LLE. She ambulated on RLE with FWW ~25' in the room, RLE quickly becomes fatigued and pt reports discomfort. Pt took rest break on bed, ambulated back to chair. Pt was left in chair, all needs met. Gait Assessment Gait Gait Assistance Required: Standby Assistance Distance (Feet) 25 Able to Maintain Weight Bearing Status Yes During Gait Assistive Devices Assistive Device Gait Belt,Front Wheeled Walker Orthotic/Prosthetic Devices or Brace: Yes Factors Limiting Gait Function Factors Limiting Gait Function Decreased Activity Tolerance, Decreased Strength,Limited Range of Motion,Pain,Poor Balance,Poor Safety Awareness Comments Gait Comments See mobility comments PT-Balance Assessment Sitting Balance and Reactions Static Sitting Balance Ability Good Dynamic Sitting Balance Ability Good Standing Balance and Reactions Static Standing Balance Ability Good Dynamic Standing Balance Ability Fair M5 PT-IP Objective Assessments Start: 10/14/23 08:35 Freq: NEEDED Status: Active Protocol: Document 10/14/23 09:22 AMB (Rec: 10/14/23 10:04 AMB [id number]) Orientation Orientation/Cognition Level of Alertness Alert Gross Range of Motion Upper Extremity ROM Assessment Within Functional Limits Lower Extremity ROM Assessment Left Impaired Strength Upper Extremity Strength Assessment Within Functional Limits Lower Extremity Strength Assessment Left Impaired Comments Strength Comments L ankle is splinted and wrapped in boni bandage M6 PT-IP Treatment Start: 10/14/23 08:35 Freq: NEEDED Status: Active Protocol: Document 10/16/23 15:03 TS (Rec: 10/16/23 15:14 TS [id number]) Physical Therapy Treatment Education Education Provided Precautions,Safety M7 PT-IP Assessment and Plan Start: 10/14/23 08:35 Freq: NEEDED Status: Active Protocol: Document 10/16/23 15:03 TS (Rec: 10/16/23 15:14 TS [id number]) PT Summary Assessment and Plan Potential Rehabilitation Potential Fair Summary Impairments Pain,ROM,Strength,Balance, Coordination,Sensation,Tone, Cognition,Bed Mobility, Transfers,Gait,Activity Tolerance Progress Towards Goals Slow Progress due to Medical Issues,Slow Progress due to Activity Tolerance Assessment Summary Deedee is making some progress with her mobility but remains limited by ongoing medical issues and activity tolerance. She ambulated NWB on LLE and using RLE with FWW around room ~25'. Pt does have some discomfort in RLE and fatigues quickly with gait. PT continues to recommend SNF at this time. Goals Transfer Goal Standby Assistance,Front Wheeled Walker Gait Goal Standby Assistance,Front Wheel Walker Gait Distance 50 Other Goals improve transfers and ambulation using knee scooter ~ 100 ft SBA Days to Meet Goals 10 Frequency of Treatment Frequency Of Treatment Twice a Day Treatment Plan Physical Therapy Treatment Plan Transfer Training,Gait Training,Therapeutic Exercise, Balance Retraining,Post Op Education,Discharge Planning, Hot or Cold Pack,Neuromuscular Re-ed,Coordination Retraining ,Manual Therapy Precautions Brace L ankle on soft cast Weight Bearing Status Weight Bearing Status Non-Weight Bearing Allowed Weight Bearing Amount (enter % LLE NWB or #) (%) Recommendations To Nursing Amount of Assist Needed 1 Person Assist Discharge Recommendations PT Discharge Recommendations SNF Rehab Transportation Needs at Discharge Wheelchair/Cabulance
[2023-10-16] MEDS: ATORVASTATIN 20 MG TABLET PO (19:59)
[2023-10-16] MEDS: OXYCODONE IR 5 MG TABLET PO (19:59)
[2023-10-16] MEDS: ACETAMINOPHEN 325 MG TABLET 650 MG PO (20:00)
[2023-10-16] MEDS: SODIUM CHLORIDE 0.9% FLUSH 10 ML IV (20:21)
[2023-10-16 21:23] VITALS: BP 122/45; PULSE 68; RESP 18; TEMP 36.2; O2SAT 98
[2023-10-17] MEDS: PANTOPRAZOLE DR 40 MG TABLET PO (05:30)
[2023-10-17 05:38] VITALS: BP 140/51; PULSE 62; RESP 16; TEMP 35.9; O2SAT 96
[2023-10-17 07:42] VITALS: BP 139/51; PULSE 65; RESP 16; TEMP 36.7; O2SAT 95
[2023-10-17] MEDS: PROPRANOLOL 10 MG TABLET 20 MG PO (08:48)
[2023-10-17] MEDS: GABAPENTIN 300 MG CAPSULE PO (08:48)
[2023-10-17] MEDS: AMLODIPINE 5 MG TABLET PO (08:48)
[2023-10-17] MEDS: ASPIRIN EC 81 MG TABLET PO (08:48)
[2023-10-17] MEDS: CITALOPRAM 10 MG TABLET 30 MG PO (08:48)
--- NOTE | 2023-10-17 09:30 | PT-IP ANOTE ---
Attempted to see pt at 9:30 AM, pt refused PT this AM, stating she feels she needs to conserve energy for transfer to [facility] this PM.
--- NOTE | 2023-10-17 09:42 | PM.DS.1 ---
History of Present Illness History of Present Illness Date Patient Seen: 10/17/23 Time Patient Seen: 09:45 Chief complaint: SDC Narrative: Operative Date/Time/Diagnoses Date of procedure: 10/13/23 Pre-op diagnosis: Failure of fixation of bimalleolar left ankle fracture Post-op diagnosis: same Procedure & Clinicians Procedure: Revision open reduction internal fixation of left ankle fracture Same procedure as scheduled: Yes Surgeon: Walter Garsia Click Yes if Unassisted: Yes Anesthesia Type: General, Peripheral nerve block and Local Deedee is a pleasent 73 year old female who is POD#4 s/p revision open reduction internal fixation of left ankle fracture with Dr. Garsia. Today she reports she is doing well. Happy with her progress so far. Has been doing well with PT and getting around with her walker. Is looking forward to being d/c from hospital. Plan is to transfer to SNF today due to concerns about getting around at home on her own due to her walker not being able to fit into her bathroom. Insurance has approved patients transfer to [facility], a friend is coming today at 2:00pm to transfer patient there. Postop pain has been well controlled with Oxycodone and Tylenol at night, no pain medication needed during the day. Admits to history of blood clots in RLE, no hx of Afib or genetic coagulopathy. Denies chest pain, SOB, fever, chills, nausea, vomiting. Discharge Providers Provider Date of admission: 10/13/23 19:16 Discharge Date: 10/17/23 Primary care physician: Tanya Escalante MD Consults: 10/13/23 18:45 Consult to Discharge Planning Routine Comment: Consult to Physical Therapy Evaluate & Treat Comment: Physician Instructions: Evaluate and Treat 10/14/23 10:27 Consult to Occupational Therapy Evaluate & Treat Comment: OT Physician Instructions: Evaluate and treat Discharge provider: Teresita Winn PA-C Summary Hospital Course Discharge Diagnosis: Failure of fixation of bimalleolar left ankle fracture s/p revision open reduction internal fixation of left ankle fracture Hospital Course: Hospital course complicated by patients inability to maintain a non-weight bearing status and need to be transferred to SNF Exam Vital Signs (past 8 hours): - 10/17/23 05:38 10/17/23 07:42 Temperature 96.6 F L 98.0 F Pulse Rate 62 65 Respiratory Rate 16 16 Blood Pressure 140/51 L 139/51 L Pulse Oximetry 96 95 Oxygen Flow Rate 0 0 Oxygen Delivery Method Room Air Oxygen Flow Rate 0 Const General: cooperative, healthy appearing and comfortable Resp Effort & Inspection: normal respiratory effort and able to speak in complete sentences Cardio Rate: regular rate Skin General: no rashes or lesions noted Other: Plaster splint, covered with boni bandage in place, clean and dry. Neuro Other: Sensation intact to bilateral lower extremities. Extrem Other: Able to wiggle all toes equally. Able to flex and extend knee actively without pain. Objective Labs 10/14/23 04:36 [facility] Medical History (Updated 10/12/23 @ 09:55 by Valorie Garcia RN) Eczema Carotid artery stenosis Hearing loss Cancer GERD (gastroesophageal reflux disease) Esophageal varices Chronic kidney disease Depression DVT (deep venous thrombosis) Cirrhosis HLD (hyperlipidemia) HTN (hypertension) Fracture of left distal radius (2018) History of transcatheter aortic valve replacement (TAVR) (10/27/20) Chronic liver failure TIA (transient ischemic attack) (~2008) Osteoporosis Surgical History (Updated 10/12/23 @ 09:55 by Valorie Garcia RN) History of left-sided carotid endarterectomy (09/2019) Hx of tonsillectomy History of esophagogastroduodenoscopy (EGD) Hx of colonoscopy History of cataract extraction History of open reduction and internal fixation (ORIF) procedure (09/22/23) Social History household members: none Smoking Status: Never smoker alcohol intake: current Discharge Assessment & Plan Assessment and Plan Assessment: Stable s/p revision open reduction internal fixation of left ankle fracture Plan of Treatment: Continue to maintain non-weight bearing status. Keep dressing in place until 2 week post op appt at [facility]. Keep dressing/splint clean and dry. Continue multimodal pain management. Follow up at [facility] on October 27 2023 at [facility]) office Discharge Plan Discharge Plan Patient Disposition: SNF Transfer to: [facility] Provider Discharge Comment: Follow up at [facility] on October 27 2023 at [facility]) office Discharge orders & Medications Prescriptions: New acetaminophen 325 mg Tablet 650 mg PO Q4H PRN (Reason: Fever/Mild Pain (1-3)) Qty: 60 0RF aspirin 81 mg Tablet,Delayed Release (Dr/Ec) 81 mg PO BID Qty: 90 0RF oxycodone 5 mg Tablet 5 mg PO Q4HR PRN (Reason: Pain, Moderate (4-6)) Qty: 25 0RF Continued furosemide 20 mg tablet 10 mg PO DAILY magnesium 250 mg tablet 250 mg PO DAILY pantoprazole 40 mg tablet,delayed release (DR/EC) 40 mg PO DAILY spironolactone 25 mg tablet 25 mg PO DAILY simvastatin 40 mg tablet 40 mg PO BEDTIME nadolol 40 mg tablet 40 mg PO DAILY citalopram 10 mg tablet 30 mg PO DAILY amlodipine 5 mg tablet 5 mg PO DAILY gabapentin 300 mg capsule 300 mg PO DAILY Follow up/Referrals: Tanya Escalante MD [Primary Care Provider] - Diet/Activity/Treatments Diet: Diet as Tolerated Activity: Non-weight bearing to left leg Cold/Heat Therapy: Ice as needed for pain control Skin/Wound/Dressing Care Report to your healthcare provider any signs of infection, such as:: chills, fever, night sweats, increased pain, unusual drainage and unusual redness Dressing: Keep dressing in place until 2 week post op appt at [facility]. Keep dressing/splint clean and dry. Visit Report/Discharge Packet Instructions: How to Prevent Falls, DI for Open Reduction Internal Fixation Surgery, DI for Prescription Opioid Use Stand Alone Forms: Patient Portal/API Discharge Data Primary Care Provider: Tanya Escalante Quality VTE Deep Vein Thrombosis/Pulmonary Embolism Present on Admission: No
--- NOTE | 2023-10-17 10:48 | CM.DPC ---
DCP Discharge SNF Per Ortho PA, pt medically stable to d/c to SNF today with no identified barriers to discharge. JULIEN called [facility] admissions Jesus[facility] and updated and faxed d/c summary, signed med list, script, MD orders and PASRR to [facility] to review. JULIEN updated RN, rn transport, and SENIOR PROCUREMENT SPECIALIST. Patient's friend plans to provide transport to [facility] as transport difficult on Sundays and before a holiday. Plan: Patient to d/c to [facility] today around 1400 via friend POV while she remains NWB status before safe return home. MEDARDO Muñoz
[2023-10-17] MEDS: OXYCODONE IR 5 MG TABLET PO (13:21)
[2023-10-17] MEDS: ACETAMINOPHEN 325 MG TABLET 650 MG PO (13:21)
--- NOTE | 2023-10-17 14:58 | PC.NURSE ---
Day shift: Pt's friend came to pick her up to take her to [facility] in [place] at 1410. Packet given to patient to give to SNF, including hard script for pain medication. No PIV or tele. All belongings with patient. Called and gave report to Chrystal at [facility]. PCT Jonny excorted patient via wheelchair to exit.
== END 2023-10-17 14:20 | DRG 494 ==
LOC: AC 10-14 08:27
PROVIDERS: Admitting Provider Orthopaedic Surgery Adult Reconstructive Orthopaedic Surgery; Family Provider Family Medicine; PCP Family Medicine; Referring Provider Orthopaedic Surgery Adult Reconstructive Orthopaedic Surgery; Visit Provider Orthopaedic Surgery Adult Reconstructive Orthopaedic Surgery
PROC: 0QSK04Z Reposition Left Fibula with Internal Fixation Device, Open Approach (ICD-10-PCS; principal; 2023-10-13 15:15)
DX: T84.89XA Other specified complication of internal orthopedic prosthetic devices, implants and grafts, initial encounter (principal); K21.9 Gastro-esophageal reflux disease without esophagitis; E78.5 Hyperlipidemia, unspecified; I10 Essential (primary) hypertension; M81.0 Age-related osteoporosis without current pathological fracture
CPT/HCPCS: 36415; 64450; 73600; 76000; 85027; 97116; 97161; 97166; 97530; 97535; G0379; J0131; J0171; J0690; J1100; J2250; J2405; J2704

== ENCOUNTER 2023-11-24 12:39 | Inpatient (IN) | payer OTHER, SELFPAY ==
[2023-10-13 20:02] VITALS: BMI 23.1
[2023-11-24] VITALS (15 sets, daily range): BP systolic 116–151; BP diastolic 36–58; PULSE 57–64; RESP 12–19; TEMP 35.7–36.5; O2SAT 93–99; BMI 22.6
[2023-11-24 13:51] LABS: Add Manual Diff / Slide Review NO; Basophils Absolute Auto 100 /uL (0-100); Basophils Percent Auto 1.1 % (0-2); Eosinophils Absolute Auto 200 /uL (0-450); Eosinophils Percent Auto 3.1 % (2-4); Hemoglobin 13.2 g/dL (12.0-16.0); Lymphocytes Absolute Auto 1400 /uL (1100-4500); Lymphocytes Percent Auto 18.7 % (25-40); Mean Corpuscular HGB Conc 32.9 % (30-36); Mean Corpuscular Hemoglobin 31.3 PG (26-34); Monocytes Absolute Auto 700 /uL (0-900); Monocytes Percent Auto 9.6 % (3-14); Neutrophils Absolute Auto 5100 /uL (1500-7000); Neutrophils Percent Auto 67.5 % (50-75); Platelet Count 192 X10^3/uL (150-400); Red Blood Cell Count 4.21 X10^6/uL (4.0-5.2); Red Cell Distribution Width 14.7 % (11.6-14.8); White Blood Cell Count 7.6 X10^3/uL (4.5-11.0)
[2023-11-24 14:07] LABS: Alanine Aminotransferase 24 IU/L (<35); Albumin 4.1 g/dL (3.5-5.0); Albumin Globulin Ratio 1.1 (1.0-2.8); Alkaline Phosphatase 70 U/L (38-126); Aspartate Aminotransferase 34 IU/L (14-36); BUN Creatinine Ratio 17.2 (6-22); Bilirubin Total 0.5 mg/dL (0.2-1.3); Blood Urea Nitrogen 16 mg/dL (7-17); C-Reactive Protein Quant 0.9 mg/dL (<1.0); Calcium 9.4 mg/dL (8.4-10.2); Carbon Dioxide 28 mmol/L (22-32); Chloride 101 mmol/L (98-107); Estimated Glomerular Filt Rate > 60 mL/min (>60); Globulin 3.6 g/dL (1.7-4.1); Glucose 90 mg/dL (80-110); HEMOLYSIS < 15 (0-50); Potassium 4.8 mmol/L (3.4-5.1); Sodium 136 mmol/L (137-145); Total Protein 7.7 g/dL (6.3-8.2)
[2023-11-24 14:12] LABS: Erythrocyte Sedimentation Rate 30 MM/HR (0-20)
[2023-11-24] MEDS: LACTATED RINGERS 1,000 ML 100 ML IV (14:15)
[2023-11-24] MEDS: ACETAMINOPHEN 325 MG TABLET 650 MG PO (14:15)
--- NOTE | 2023-11-24 15:50 | PM.HP.1 ---
History of Present Illness History of Present Illness Date Patient Seen: 11/24/23 Time Patient Seen: 15:50 Date of Onset of Symptoms: 11/23/23 Chief complaint: Exposed orthopedic hardware Narrative: The patient is a 73-year-old female status post revision open reduction internal fixation left trimalleolar ankle fracture it is syndesmotic screws on 10/13/[address] Garsia. The clinic was contacted by the home health nurse that noted the lateral wound had opened and there was exposed hardware. Patient was indicated for hospital admission for operative debridement of her surgical wound dehiscence and exposed hardware deep cultures PICC line intravenous antibiotics and possible wound VAC or other coverage placement. She has been nonweightbearing she has osteoporosis. The patient was contacted and indicated for admission and operative debridement of her exposed hardware and a surgical wound dehiscence. She denies any fevers or chills. She notes that it has been difficult to maintain nonweightbearing status. She has been getting assistance from her restorationism, family and home health and [facility] [place] Medical History (Updated 11/24/23 @ 15:58 by Pat Heath MD) Eczema Carotid artery stenosis Hearing loss Cancer GERD (gastroesophageal reflux disease) Esophageal varices Chronic kidney disease Depression DVT (deep venous thrombosis) Cirrhosis HLD (hyperlipidemia) HTN (hypertension) Fracture of left distal radius (2018) History of transcatheter aortic valve replacement (TAVR) (10/27/20) Chronic liver failure TIA (transient ischemic attack) (~2008) Osteoporosis Surgical History History of left-sided carotid endarterectomy (09/2019) Hx of tonsillectomy History of esophagogastroduodenoscopy (EGD) Hx of colonoscopy History of cataract extraction History of open reduction and internal fixation (ORIF) procedure (09/22/23) Social History household members: none Smoking Status: Never smoker alcohol intake: current Meds Home Medications and Allergies Home Medications Medication Instructions Recorded Confirmed Type furosemide 20 mg tablet 10 mg PO DAILY 10/03/18 11/24/23 History magnesium 250 mg tablet 250 mg PO DAILY 10/03/18 11/24/23 History pantoprazole 40 mg tablet,delayed 40 mg PO DAILY 10/03/18 11/24/23 History release simvastatin 40 mg tablet 40 mg PO BEDTIME 10/03/18 11/24/23 History nadolol 40 mg tablet 40 mg PO DAILY 12/23/18 11/24/23 History amlodipine 5 mg tablet 5 mg PO DAILY 10/13/23 11/24/23 History citalopram 10 mg tablet 30 mg PO DAILY 10/13/23 11/24/23 History gabapentin 300 mg capsule 300 mg PO DAILY 10/13/23 11/24/23 History acetaminophen 325 mg tablet 650 mg (2 x 325 mg) PO Q4H PRN 10/16/23 11/24/23 Rx Fever/Mild Pain (1-3) #60 tabs aspirin 81 mg tablet,delayed 81 mg PO BID #90 tabs 10/16/23 11/24/23 Rx release trazodone 50 mg tablet 50 mg PO ONCE PM 11/24/23 11/24/23 History Allergies Allergy/AdvReac Type Severity Reaction Status Date / Time Penicillins Allergy Severe HIVES Verified 12/23/18 13:40 Review of Systems Review of Systems Narrative: No fevers chills nausea or vomiting. Difficulty mobilizing due to nonweightbearing status left ankle ROS: Yes All systems reviewed with the patient and are negative except as otherwise documented Exam Vital Signs (past 8 hours): - 11/24/23 13:29 11/24/23 14:14 Temperature 97.3 F L Pulse Rate 60 Respiratory Rate 16 Blood Pressure 142/47 H Pulse Oximetry 93 93 Oxygen Delivery Method Room Air Oxygen Delivery Method Room Air Narrative Exam Narrative: Alert and oriented no acute distress HEENT exam normocephalic atraumatic Heart regular rate and rhythm Lungs clear to auscultation bilateral Left ankle demonstrates healed medial incision. Lateral incision distally has opened and there was exposed hardware with some metallic plate visualized no gross purulence. There is moderate erythema immediately surrounding the area of dehiscence. Compartments are soft. Ankle range of motion limited but achieves neutral dorsiflexion. Objective Labs 11/24/23 13:35 11/24/23 09:11 Labs: Laboratory Results - last 24 hr 11/24/23 11/24/23 09:11 13:35 WBC 7.6 RBC 4.21 Hgb 13.2 Hct 40.0 MCV 95.0 MCH 31.3 MCHC 32.9 RDW 14.7 Plt Count 192 Neut % (Auto) 67.5 Lymph % (Auto) 18.7 L [place] % (Auto) 9.6 Eos % (Auto) 3.1 Baso % (Auto) 1.1 Neut # (Auto) 5100 Lymph # (Auto) 1400 [place] # (Auto) 700 Eos # (Auto) 200 Baso # (Auto) 100 ESR 30 H Sodium 136 L Potassium 4.8 Chloride 101 Carbon Dioxide 28 BUN 16 Creatinine 0.93 Estimated GFR > 60 BUN/Creatinine Ratio 17.2 Glucose 90 Calcium 9.4 Total Bilirubin 0.5 AST 34 ALT 24 Alkaline Phosphatase 70 C-Reactive Protein 0.9 Total Protein 7.7 Albumin 4.1 Globulin 3.6 Albumin/Globulin Ratio 1.1 labs were reviewed. ESR slightly elevated CRP and normal, creatinine normal white count normal Assessment & Plan Assessment and plan (1) Exposed orthopaedic hardware: Status: Acute (2) Infected hardware in left leg: Problem details: Exposed lateral plate, left ankle fracture Qualifiers: Encounter type: initial encounter Qualified Code(s): T84.7XXA - Infection and inflammatory reaction due to other internal orthopedic prosthetic devices, implants and grafts, initial encounter Status: Acute (3) Ankle fracture, left: Qualifiers: Encounter type: subsequent encounter Fracture healing: with delayed healing Fracture type: closed Qualified Code(s): S82.892G - Other fracture of left lower leg, subsequent encounter for closed fracture with delayed healing Status: Acute (4) Surgical wound dehiscence: Qualifiers: Encounter type: initial encounter Qualified Code(s): T81.31XA - Disruption of external operation (surgical) wound, not elsewhere classified, initial encounter Status: Acute Plan The patient has wound dehiscence of her lateral incision where her left ankle fracture revision. The revision is only 4-week-old. She has exposed hardware. She has been indicated for formal incision debridement cultures and coverage. She will require maintenance of her hardware while her ankle fracture continues to heal. To maintain the hardware she will be required treatment for IV antibiotics likely for at least 6 weeks followed by oral regimen. To gain healing. If infection is not eradicated or returns after end of antibiotics then would consider hardware removal but not until the fracture has healed. She is indicated for inpatient admission for surgery, arrangement of IV antibiotics and postoperative care possibly requiring long term depending on wound coverage and ability to receive home IV antibiotics. Medical decision-making high level. Patient indicated for direct admission and surgery for IV antibiotics for exposed orthopedic hardware. Multiple lab studies ordered and reviewed today. Indication for surgery. The risks and benefits of the procedure have been discussed with the patient and given the opportunity to ask questions. The risks of surgery include but are not limited to infection, malunion, nonunion, persistence of pain, damage to nerves and blood vessels, possible need for multiple surgeries and were wound VAC changes, posttraumatic arthritis, DVT, PE, cardiopulmonary complications and . The patient expressed a thorough understanding of the risks and benefits of surgery and has elected to proceed. Consent was signed Time Spent With Patient Time with patient: 50 to 69 minutes with 50% spent counseling/coordinating care Quality VTE Deep Vein Thrombosis/Pulmonary Embolism Present on Admission: No
--- NOTE | 2023-11-24 15:57 | DI.RAD.S_ITS ---
PROCEDURE: XR CHEST FOR PICC 1V INDICATIONS: [facility]. FINDINGS: PICC was placed by the intravenous therapy team from the left side. Fluoroscopic spot film demonstrates the tip of PICC projecting to the area of the superior vena cava. IMPRESSION: Tip of PICC projects to the area of superior vena cava. Dictated by: Ryan Veronica M.D. on 11/24/2023 at 16:54 Approved by: Ryan Veronica M.D. on 11/24/2023 at 16:55
--- NOTE | 2023-11-24 16:18 | SUR.OPER ---
Supine on padded OR bed, head on pillow, arms secured on padded arm boards at <90 degrees abduction, legs uncrossed, safety belt at thigh, tape over blanket over lower RIGHT LEG.
[2023-11-24] MEDS: CEFAZOLIN 2 GM/100 ML PREMIX 100 ML IV (16:42)
[2023-11-24] MEDS: BUPIVACAINE 0.25% (PF) 30 ML, EPINEPHrine 0.15 MG INJ (17:12)
--- NOTE | 2023-11-24 18:00 | P.OP_ITS ---
Operative Date/Time/Diagnoses Date of procedure: 11/24/23 Time of procedure: 17:00 Pre-op diagnosis: Delayed healing left ankle fracture Dehiscence surgical wound left ankle Exposed orthopedic hardware left ankle Post-op diagnosis: same Procedure & Clinicians Procedure: Adjacent tissue transfer, bilobed flap 10 centimeter sq or less, left ankle CPT code 57083 Debridement skin subcutaneous tissue initial 20 sq cm CPT code 85488 left ankle Same procedure as scheduled: Yes Indications: Patient is a 73-year-old female that had a left ankle fracture that was complicated by hardware failure and revised on 10/13/2023 by 1 of my partners. She has developed a surgical dehiscence and exposure of her orthopedic hardware along her lateral malleolus. She has been indicated for operative debridement, possible coverage, versus wound VAC, and antibiotic treatment for her exposed ankle hardware and infection. Medical comorbidities include status post aortic valve replacement. The risks and benefits of the procedure have been discussed with the patient and given the opportunity to ask questions. The risks of surgery include but are not limited to infection, malunion, nonunion, persistence of pain, damage to nerves and blood vessels, posttraumatic arthritis, DVT, PE, cardiopulmonary complications and . The patient expressed a thorough understanding of the risks and benefits of surgery and has elected to proceed. Consent was signed. Surgeon: Pat Heath Click Yes if Unassisted: Yes Anesthesia Type: General Operative Notes Findings: Open wound distal aspect left ankle with exposed lateral malleolus plate and screw measuring approximately 3 x 1 cm, full-thickness with exposed hardware surrounding moderate erythema. The area was ellipsed to size out and debrided. Cultures were taken. After irrigation tissue was mobilized this was not able to be closed primarily and decision was made for an adjacent tissue transfer. A bilobed flap was drawn out and rotated into the defect. Closure Type: primary Specimen(s): other (Cultures were sent. Tissue was sent for bacterial PCR) Estimated Blood Loss (mL): 5 Blood products transfused: none Tourniquet time (min): 1 Procedure in detail: Patient was seen in the preoperative area the site of surgery was marked informed consent confirmed patient was brought back to the operating room by the anesthesia team and positioned supine on the table. General anesthetic was administered. The left lower extremity was prepped and draped in standard sterile fashion formal time-out procedure was performed confirming the patient's side site of surgery and administration of the appropriate preoperative antibiotic and presence of informed consent. All were in agreement. Attention was turned to the left lower extremity gravity exsanguination was utilized and the tourniquet was raised on the thigh to 250 mmHg upon incision this was found to be a venous tourniquet and the tourniquet was released after 1 minute. Remained down for the rest of the case. There was a healed medial incision with a thin thin layer of skin but no openings or exposed hardware. Sores a lateral incision with the distal aspect open with exposed lateral fibular plate and screw area measuring approximately 3 x 1 cm, full-thickness. The open wound was ellipsed sized and a Jarratt elevated used to mobilize the periwound tissue even after mobilization, this was apparent it was not going to be primarily closable. Therefore a local advancement, rotational flap was prepared. A bilobed flap was drawn out utilizing the more pliable posterior skin. The bilobed flap was elevated in the standard fashion using the sharp scalpel. Once this was mobilized the wound was thoroughly irrigated with 3 L of saline a sterile scrub brush was used to scrub the exposed hardware. A rongeur was used to obtain tissue cultures 2 sent for bacterial PCR and tissue swabs were taken. Once the irrigation was complete gloves and drapes were changed to clean gloves and drapes. At this point the bilobed flap was rotated into the defect and provisionally secured with 3-0 PDS suture a few 4-0 nylon sutures were placed and then the flap was secured with 3-0 nylon suture. The tourniquet was released for the entirety of this part of the procedure and the flap remained pink. The flap was closed. It was dressed with Xeroform gauze fluffs and Webril. Bulky Galdamez dressing was placed and a well-padded stirrup splint into neutral dorsiflexion to help prevent Achilles contracture. The patient was awoken and taken to the recovery unit in good condition there were no immediate complications from this procedure. Counts were correct. Complications: none Post-operative Condition: stable Disposition: PACU Plan for aftercare: Nonweightbearing left lower extremity in splint. Elevate as much as possible for the 1st 2 weeks after surgery. will follow up in Orthopedic Clinic with Dr. Heath--12/14/2023. We will start with empiric antibiotics we will narrow as cultures indicate. Aspirin 81 mg b.i.d.
--- NOTE | 2023-11-24 18:24 | PC.NURSE ---
pt arrived in AC unit from PACU. A&Ox4, 98%RA. vitals stable. denied pain. can wiggle toes, can feel palpation. cap refill <2sec.
[2023-11-24] MEDS: LACTATED RINGERS 1,000 ML 42 ML IV (18:30)
--- NOTE | 2023-11-24 18:33 | P.PN_ITS ---
Subjective Subjective Interval history: Postop irrigation debridement and rotational flap left ankle. --she will be on empiric vancomycin adjusted by the pharmacy until cultures return. Once cultures finalize we will tailor as appropriate with [facility] Infectious Disease recommendations. -we have sent a referral to outpatient the patient can follow up with the [facility] Infectious Disease as well. --patient wishes to be able to return home she has animals. She also has a lot of community support from a separate zoroastrianism that have been helpful in the past.--discussed if versus discharge home will depend on whether she can get home health infusions--foot plan on IV antibiotics 4-6 weeks for presumed infected hardware due to exposed orthopedic hardware and requirement to maintain hardware in place for fracture healing. -nonweightbearing on the left as much as possible at least the next 2 weeks for flap healing Exam Vital Signs (past 8 hours): - 11/24/23 13:29 11/24/23 14:14 11/24/23 16:23 Temperature 97.3 F L 97.6 F Pulse Rate 60 59 L Respiratory Rate 16 18 Blood Pressure 142/47 H 148/58 H Pulse Oximetry 93 93 98 Oxygen Delivery Method Room Air Room Air 11/24/23 17:50 11/24/23 17:55 11/24/23 17:59 Temperature 97.7 F Pulse Rate 62 62 61 Respiratory Rate 13 12 12 Blood Pressure 134/37 L 134/37 L 125/36 L Pulse Oximetry 97 99 99 Oxygen Delivery Method Room Air Room Air Room Air 11/24/23 18:10 Temperature Pulse Rate 62 Respiratory Rate 19 Blood Pressure 148/48 H Pulse Oximetry 99 Oxygen Delivery Method Room Air Oxygen Delivery Method Room Air Objective Labs 11/24/23 13:35 11/24/23 09:11 Labs: Laboratory Results - last 24 hr 11/24/23 11/24/23 09:11 13:35 WBC 7.6 RBC 4.21 Hgb 13.2 Hct 40.0 MCV 95.0 MCH 31.3 MCHC 32.9 RDW 14.7 Plt Count 192 Neut % (Auto) 67.5 Lymph % (Auto) 18.7 L [place] % (Auto) 9.6 Eos % (Auto) 3.1 Baso % (Auto) 1.1 Neut # (Auto) 5100 Lymph # (Auto) 1400 [place] # (Auto) 700 Eos # (Auto) 200 Baso # (Auto) 100 ESR 30 H Sodium 136 L Potassium 4.8 Chloride 101 Carbon Dioxide 28 BUN 16 Creatinine 0.93 Estimated GFR > 60 BUN/Creatinine Ratio 17.2 Glucose 90 Calcium 9.4 Total Bilirubin 0.5 AST 34 ALT 24 Alkaline Phosphatase 70 C-Reactive Protein 0.9 Total Protein 7.7 Albumin 4.1 Globulin 3.6 Albumin/Globulin Ratio 1.1 PFSH Medical History (Updated 11/24/23 @ 15:58 by Pat Heath MD) Eczema Carotid artery stenosis Hearing loss Cancer GERD (gastroesophageal reflux disease) Esophageal varices Chronic kidney disease Depression DVT (deep venous thrombosis) Cirrhosis HLD (hyperlipidemia) HTN (hypertension) Fracture of left distal radius (2018) History of transcatheter aortic valve replacement (TAVR) (10/27/20) Chronic liver failure TIA (transient ischemic attack) (~2008) Osteoporosis Surgical History History of left-sided carotid endarterectomy (09/2019) Hx of tonsillectomy History of esophagogastroduodenoscopy (EGD) Hx of colonoscopy History of cataract extraction History of open reduction and internal fixation (ORIF) procedure (09/22/23) Social History household members: none Smoking Status: Never smoker alcohol intake: current Assessment & Plan Post-op Postoperative Procedures: Procedures Operation Date: 11/24/23 18:00 Actual Procedure Side Surgeon p I&D, closure vs wound vac placement, ankle Left Pat Heath MD Quality VTE Deep Vein Thrombosis/Pulmonary Embolism Present on Admission: No
[2023-11-24] MEDS: HYDROCODONE/ACET 5/325 TABLET 2 TAB PO (18:45)
[2023-11-24] MEDS: VANCOMYCIN 1,000 MG/200 ML PIGGYBACK 200 MG IV (19:42)
[2023-11-24] MEDS: SENNOSIDES 8.6 MG TABLET 17.2 MG PO (20:12)
[2023-11-24] MEDS: ASPIRIN EC 81 MG TABLET PO (20:12)
[2023-11-24] MEDS: ATORVASTATIN 20 MG TABLET PO (20:12)
[2023-11-24] MEDS: DOCUSATE 100 MG CAPSULE PO (20:12)
[2023-11-24] MEDS: TRAZODONE 50 MG TABLET PO (20:12)
[2023-11-24] MEDS: PROPRANOLOL 10 MG TABLET 20 MG PO (20:13)
[2023-11-24 21:32] LABS: BUN Creatinine Ratio 18.8 (6-22); Blood Urea Nitrogen 15 mg/dL (7-17); Calcium 8.8 mg/dL (8.4-10.2); Carbon Dioxide 26 mmol/L (22-32); Chloride 101 mmol/L (98-107); Estimated Glomerular Filt Rate > 60 mL/min (>60); Glucose 122 mg/dL (80-110); HEMOLYSIS < 15 (0-50); Potassium 4.4 mmol/L (3.4-5.1); Sodium 134 mmol/L (137-145)
[2023-11-25] MEDS: PANTOPRAZOLE DR 40 MG TABLET PO (05:37)
[2023-11-25 05:40] VITALS: BP 125/47; PULSE 64; RESP 18; TEMP 35.7; O2SAT 97
[2023-11-25 08:00] VITALS: BP 141/53; PULSE 69; RESP 16; TEMP 36.4; O2SAT 98
--- NOTE | 2023-11-25 09:00 | PC.NURSE ---
Patient states that her pain to l.ankle/foot is a 2.5/10. She was offered tylenol and this will be given shortly with her routine medications. Patient has a splinted cast to her l.ankle that is cdi. Her l.foot is warm, and pedal pulses are present x2. She ate some breakfast and is resting and tolerating ivf. She also has a picc line to her l.upper extremity that is patent.
[2023-11-25] MEDS: ASPIRIN EC 81 MG TABLET PO ×2 (09:12→20:44)
[2023-11-25] MEDS: PROPRANOLOL 10 MG TABLET 20 MG PO ×2 (09:12→20:44)
[2023-11-25] MEDS: FUROSEMIDE 20 MG TABLET 10 MG PO (09:12)
[2023-11-25] MEDS: ACETAMINOPHEN 325 MG TABLET 650 MG PO (09:12)
[2023-11-25] MEDS: polyethylene glycoL 3350 17 GM POWD.PACK PO (09:12)
[2023-11-25] MEDS: MAGNESIUM OXIDE 400 MG TABLET PO (09:13)
[2023-11-25] MEDS: GABAPENTIN 300 MG CAPSULE PO (09:13)
[2023-11-25] MEDS: DOCUSATE 100 MG CAPSULE PO ×2 (09:13→20:45)
[2023-11-25] MEDS: AMLODIPINE 5 MG TABLET PO (09:13)
[2023-11-25] MEDS: CITALOPRAM 10 MG TABLET 30 MG PO (09:13)
--- NOTE | 2023-11-25 09:37 | PT.IIE ---
Current Diagnoses Other fracture of left lower leg, subsequent encounter for closed fracture with delayed healing (11/24/23) Disruption of external operation (surgical) wound, not elsewhere classified, initial encounter (11/24/23) Other mechanical complication of other internal orthopedic devices, implants and grafts, initial encounter (11/24/23) Infection and inflammatory reaction due to other internal orthopedic prosthetic devices, implants and grafts, initial encounter (11/24/23) Surgery Performed Operation Date: 11/24/23 18:00 Actual Procedures p I&D, closure vs wound vac placement, ankle(Left) - Pat Heath MD Surgical History (Last Reviewed 11/24/23 @ 15:54 by Pat Heath MD) History of cataract extraction History of esophagogastroduodenoscopy (EGD) History of left-sided carotid endarterectomy (09/2019) History of open reduction and internal fixation (ORIF) procedure (09/22/23) Hx of colonoscopy Hx of tonsillectomy Medical History (Last Updated 11/24/23 @ 15:57 by Pat Heath MD) Cancer Carotid artery stenosis Chronic kidney disease Chronic liver failure Cirrhosis Depression DVT (deep venous thrombosis) Eczema Esophageal varices Fracture of left distal radius (2018) GERD (gastroesophageal reflux disease) Hearing loss History of transcatheter aortic valve replacement (TAVR) (10/27/20) HLD (hyperlipidemia) HTN (hypertension) Osteoporosis TIA (transient ischemic attack) (~2008) Physical Therapy Inpatient Evaluation/Re-Eval M1 PT/OT-IP Prior Functional Status Start: 11/25/23 08:16 Freq: NEEDED Status: Active Protocol: Document 11/25/23 09:07 MB (Rec: 11/25/23 09:37 MB [id number]) Medical Review Prior Functional Status Medical History Reviewed Yes Communication WNLs Mobility and Gait Mod I with RW and w/c Activities of Daily Living and IADL's As above, pt has several dogs and cats. She was getting HH aide assist for showers and HHPT and nsg as well. She has been NWB since last August since first ankle surgery. Prior Functional Level (Other details) See above Social History Household Members none Living Arrangements House Number of Floors (Floors) One Floor Number of Stairs To Enter/Railing? Ramp Home Environment Standard Height Toilet,Walk in Shower Home Equipment Front Wheel Walker,Manual Wheelchair,Tub Transfer Bench, Grab Bars In Shower Employment Status Retired M2 PT-IP Current Condition Start: 11/25/23 08:16 Freq: NEEDED Status: Active Protocol: Document 11/25/23 09:07 MB (Rec: 11/25/23 09:37 MB [id number]) Physical Therapy Current Condition Current Condition Evaluation Date 11/25/23 Treatment Diagnosis Left ankle surgery d/t exposed hardware s/p two previous surgeries M3 PT-IP Subjective Start: 11/25/23 08:16 Freq: NEEDED Status: Active Protocol: Document 11/25/23 09:07 MB (Rec: 11/25/23 09:37 MB [id number]) Subjective Physical Therapy Visit Type Type Initial Evaluation Visit Start Time 09:07 Visit Stop Time 09:22 Number of PARKS RECREATION DIRECTOR Visits 0 Physical Therapy Visit Comments Patient Comments Pt wishes to go home and to get back to her animals. Therapy Pain Assessment Pain When Pain Assessed At Rest Pain Present Pain Present Pain Reported Location Left Ankle Intensity 2 Scale Used [place] (Faces) M4 PT-IP Mobility and Gait Start: 11/25/23 08:16 Freq: NEEDED Status: Active Protocol: Document 11/25/23 09:07 MB (Rec: 11/25/23 09:37 MB [id number]) PT-Bed Mobility Assessment Rolling Level of Assist Standby Assistance,1 Person Assistance Supine to Sit Supine to Sit Standby Assistance,1 Person Assistance,Head of Bed Elevated,Bedrails Scooting Scooting to Edge of Bed Standby Assistance PT-Transfer Assessment Sit to and From Stand Sit to and from Stand Standby Assistance,1 Person Assistance,Use of Upper Extremities Equipment Transfer Assistive Device Gait Belt,Front Wheeled Walker Transfers Transfer Destination Chair Transfer Technique Hop gait Transfer Ability Level of Assist Contact Guard Assistance,1 Person Assistance,Use of Upper Extremities Comments Mobility Comments Pt with splint donned. She may have to have wound vac placed in the future and unsure if she will get IV antibiotics. Gait Assessment Gait Gait Assistance Required: Contact Guard Assist,1 Person Assist Distance (Feet) 2 Able to Maintain Weight Bearing Status Yes During Gait Assistive Devices Assistive Device Gait Belt,Front Wheeled Walker Gait Deviations General Gait Pattern Flexed Trunk Factors Limiting Gait Function Factors Limiting Gait Function Poor Safety Awareness Comments Gait Comments Pt has been NWB LLE since August of 2023 and she moves pretty well in bed and with transfer and short hops to the chair. She does have decreased safety awareness and does not push up from the bed and rather reaches and grabs RW. PT-Balance Assessment Sitting Balance and Reactions Static Sitting Balance Ability Normal Dynamic Sitting Balance Ability Normal Standing Balance and Reactions Static Standing Balance Ability Good Dynamic Standing Balance Ability Good Device Used RW M5 PT-IP Objective Assessments Start: 11/25/23 08:16 Freq: NEEDED Status: Active Protocol: Document 11/25/23 09:07 MB (Rec: 11/25/23 09:37 [id number]) Orientation Orientation/Cognition Level of Alertness Alert Orientation Name,Age,Birthday,Month,Date, Year,Day of Week,Place, Situation Language Function Ability Expressive Aphasia Safety Awareness Decreased Safety Awareness Memory Description No Deficits Noted Gross Range of Motion Upper Extremity ROM Assessment Within Functional Limits Lower Extremity ROM Assessment Left Impaired Impairments Left LE in splint Strength Upper Extremity Strength Assessment Within Functional Limits Lower Extremity Strength Assessment Left Impaired Comments Strength Comments LLE in splint ankle to inferior knee. M7 PT-IP Assessment and Plan Start: 11/25/23 08:16 Freq: NEEDED Status: Active Protocol: Document 11/25/23 09:07 MB (Rec: 11/25/23 09:37 [id number]) PT Summary Assessment and Plan Potential Rehabilitation Potential Good Status of Condition at Evaluation Evolving Summary Impairments Pain,ROM,Strength,Balance,Bed Mobility,Transfers,Gait, Activity Tolerance Progress Towards Goals Goals Met Assessment Summary Pt is a pleasant 73 y/o female who does quite well with mobility and she has been NWB LLE since August of 2023. She does move quickly and does not push up from the bed before transferring to the walker. She would like to return home to her pets and services. She has friends from [employer] who are helpful and assist and she may benefit from ongoing intermittent support and assistance at d/c. Current things that can change in the acute setting are wound vac and IV antibiotics. These would require skilled assistance at d/c. Goals Bed Mobility Goal Independent Transfer Goal Independent,Front Wheeled Walker Gait Goal Independent,Front Wheel Walker Gait Distance 30 Other Goals Pt will demonstrate I w/c transfer and mobility at least 75 feet as she uses w/c also at home. Days to Meet Goals 10 Frequency of Treatment Frequency Of Treatment Once a Day Treatment Plan Physical Therapy Treatment Plan Bed Mobility Training,Transfer Training,Gait Training, Therapeutic Exercise,Balance Retraining,Discharge Planning Weight Bearing Status Weight Bearing Status Non-Weight Bearing Recommendations To Nursing Amount of Assist Needed Standby Assistance,1 Person Assist Discharge Recommendations PT Discharge Recommendations Home with Assistance,Home vs SNF Transportation Needs at Discharge Private Vehicle
--- NOTE | 2023-11-25 11:12 | PM.PN.1 ---
Subjective Subjective Interval history: Deedee is a 73 year old female who is postop day #1 s/p left ankle irrigation debridement and rotational flap left ankle by Dr. Heath. She reports overall doing well, pain level 5/10 currently, pain only located on the lateral ankle. She feels her pain is well controlled with Tylenol but prefers to take narcotic at night so she can sleep through the pain better. Discussed d/c to home vs SNF, patient wishes to be able to return home she has pets at home to take care of. She states she has been at home alone for the last 3 weeks and did okay. Uses a wheelchair around the house and hops while pushing a walker to use the restroom. Denies any new falls since previous surgery with Dr. Garsia. She also reports having a community of support from [employer] that have been very helpful in the past. Denies fever, chills, chest pain, SOB, nausea, vomitting. Exam Vital Signs (past 8 hours): - 11/25/23 05:40 11/25/23 08:52 Temperature 96.3 F L Pulse Rate 64 Respiratory Rate 18 Blood Pressure 125/47 L Pulse Oximetry 97 Oxygen Delivery Method Room Air Oxygen Flow Rate 0 Oxygen Delivery Method Room Air Oxygen Flow Rate 0 Const General: cooperative, healthy appearing and comfortable Resp Effort & Inspection: normal respiratory effort and able to speak in complete sentences Cardio Rate: regular rate Neuro General: patient alert, patient awake, patient oriented x3 and moves all extremities Extrem Other: Patient is in plaster splint wrapped in Shai bandage. Ankle ROM limited due to splint, resting in neutral dorsiflexion. Wiggles all toes, sensation intact to all toes. Objective Labs 11/24/23 13:35 11/25/23 18:27 Labs: Laboratory Results - last 24 hr 11/24/23 11/24/23 11/24/23 09:11 13:35 21:00 WBC 7.6 RBC 4.21 Hgb 13.2 Hct 40.0 MCV 95.0 MCH 31.3 MCHC 32.9 RDW 14.7 Plt Count 192 Neut % (Auto) 67.5 Lymph % (Auto) 18.7 L [place] % (Auto) 9.6 Eos % (Auto) 3.1 Baso % (Auto) 1.1 Neut # (Auto) 5100 Lymph # (Auto) 1400 [place] # (Auto) 700 Eos # (Auto) 200 Baso # (Auto) 100 ESR 30 H Sodium 136 L 134 L Potassium 4.8 4.4 Chloride 101 101 Carbon Dioxide 28 26 BUN 16 15 Creatinine 0.93 0.80 Estimated GFR > 60 > 60 BUN/Creatinine Ratio 17.2 18.8 Glucose 90 122 H Calcium 9.4 8.8 Total Bilirubin 0.5 AST 34 ALT 24 Alkaline Phosphatase 70 C-Reactive Protein 0.9 Total Protein 7.7 Albumin 4.1 Globulin 3.6 Albumin/Globulin Ratio 1.1 [facility] Medical History (Updated 11/24/23 @ 15:58 by Pat Heath MD) Eczema Carotid artery stenosis Hearing loss Cancer GERD (gastroesophageal reflux disease) Esophageal varices Chronic kidney disease Depression DVT (deep venous thrombosis) Cirrhosis HLD (hyperlipidemia) HTN (hypertension) Fracture of left distal radius (2018) History of transcatheter aortic valve replacement (TAVR) (10/27/20) Chronic liver failure TIA (transient ischemic attack) (~2008) Osteoporosis Surgical History History of left-sided carotid endarterectomy (09/2019) Hx of tonsillectomy History of esophagogastroduodenoscopy (EGD) Hx of colonoscopy History of cataract extraction History of open reduction and internal fixation (ORIF) procedure (09/22/23) Social History household members: none Smoking Status: Never smoker alcohol intake: current Assessment & Plan Assessment and plan (1) Exposed orthopaedic hardware: Status: Acute (2) Infected hardware in left leg: Problem details: Exposed lateral plate, left ankle fracture Qualifiers: Encounter type: initial encounter Qualified Code(s): T84.7XXA - Infection and inflammatory reaction due to other internal orthopedic prosthetic devices, implants and grafts, initial encounter Status: Acute (3) Ankle fracture, left: Qualifiers: Encounter type: subsequent encounter Fracture healing: with delayed healing Fracture type: closed Qualified Code(s): S82.892G - Other fracture of left lower leg, subsequent encounter for closed fracture with delayed healing Status: Acute (4) Surgical wound dehiscence: Qualifiers: Encounter type: initial encounter Qualified Code(s): T81.31XA - Disruption of external operation (surgical) wound, not elsewhere classified, initial encounter Status: Acute Plan Discussed discharge to home will depend on whether she can get home health infusions, plan on IV antibiotics 4-6 weeks for presumed infected hardware due to exposed orthopedic hardware and requirement to maintain hardware in place for fracture healing. The patient can follow up with the [facility] Infectious Disease as well. Assessment & Plan narrative: -Nonweightbearing left lower extremity in splint. -Elevate as much as possible for the 1st 2 weeks after surgery. Will follow up in Orthopedic Clinic with Dr. Heath--12/14/2023. -Continue empiric vancomycin adjusted by the pharmacy until cultures return. Once cultures finalize we will tailor as appropriate with [facility] Infectious Disease recommendations. -Aspirin 81 mg b.i.d. Quality VTE Deep Vein Thrombosis/Pulmonary Embolism Present on Admission: No
--- NOTE | 2023-11-25 11:33 | CM.DANOTE ---
Initial DCP Assessment Visit Note Reviewed EMR and team rounds for pt's medical status and initial anticipated d/c needs. Met with pt at bedside to introduce self and role, pt was found to be alert/oriented and able to participate in discussing her preferences for d/c. Payor: [employer] Attending: Pat Heath Pt is a 73 year-old F with a hx of post-fixation surgery on her left ankle 4-weeks ago. Her Home Health nurse notified the Ortho clinic that pt's surgical wound had opened up, and that there was exposed hardware. Pt was brought to the hospital for urgent operative debridement of the wound. Pt is non-weightbearing status, has had [facility] in place since her surgery, and she would like to continue with them post-d/c. Per Dr. Heath, pt was started on IV Vancomycin after admission, cultures are pending. The plan will be for pt to d/c home (she declines SNF) with 4-6 weeks of IV antibiotics. DCP will coordinate with [facility] once cultures return in order to confirm ABO for home infusions. Pt has strong family, friends, and [employer] community support to assist her at home, as well as to help her care for her many animals in the home. DCP will continue to follow and assist in coordination with this plan. Discharge Planning/Care Management CM Discharge Assessment Start: 11/25/23 11:28 Freq: Status: Active Protocol: Document 11/25/23 11:29 DPL (Rec: 11/25/23 11:33 DPL [id number]) Discharge Planning Assessment Assigned Folding Rules Printing Machine Operator MEDARDO Bridges Advance Directives? Yes Advance Directives on File No History Provided By Patient,Medical Record Has Patient been admitted in last 30 No days? Prior Living Arrangements House Household Members none Type of transporation used prior to Drives own vehicle admit Comment At baseline. She has not been able to drive since gi due to her L- ankle. Independent with ADL's Yes: Modified independent since surgery. Needs Assistance With Bathing,Home Chores / Shopping Caregiver for Another No Community Services used prior to Physical Therapy,Occupational admission: Therapy,Home Health Nurse Patient/Family Preference Home with Home Health Discharge Plan Home Community Services Physical Therapy,Occupational Therapy,Home Health Aid,Home Health Nurse,IV Therapy,Wound Care Transportation Arrangement Family/friends Referrals Initiated Home Health Additional Comment Not yet initiated. She is already established with [facility]. Will contact them once we know more definatively when she is ready for d/c back home . If patient plan is home with home health No : Has signed face to face form been completed? If patient plan is SNF: Has PASSR been No completed? Inpatient Status as of 11/24/23 SNF/HH Preference [facility]. Has Agency SNF been contacted No Whiteboard Updated in Patient Room with Yes name and ext. # of Folding Rules Printing Machine Operator Review Status In Process Please Provide Date Initial DC 11/25/23 Assessment Was Performed
[2023-11-25 12:00] VITALS: BP 135/49; PULSE 69; RESP 16; TEMP 36.8; O2SAT 98
[2023-11-25] MEDS: HYDROCODONE/ACET 5/325 TABLET 1 TAB PO (17:07)
[2023-11-25 19:00] VITALS: O2SAT 97
[2023-11-25 19:03] LABS: BUN Creatinine Ratio 19.6 (6-22); Blood Urea Nitrogen 21 mg/dL (7-17); Calcium 9.1 mg/dL (8.4-10.2); Carbon Dioxide 25 mmol/L (22-32); Chloride 103 mmol/L (98-107); Estimated Glomerular Filt Rate 55 mL/min (>60); Glucose 125 mg/dL (80-110); HEMOLYSIS < 15 (0-50); Potassium 4.1 mmol/L (3.4-5.1); Sodium 135 mmol/L (137-145)
[2023-11-25] MEDS: VANCOMYCIN 1,000 MG/200 ML PIGGYBACK 200 MG IV (19:22)
[2023-11-25] MEDS: ATORVASTATIN 20 MG TABLET PO (20:44)
[2023-11-25] MEDS: TRAZODONE 50 MG TABLET PO (20:45)
[2023-11-25] MEDS: SENNOSIDES 8.6 MG TABLET 17.2 MG PO (20:45)
[2023-11-26 03:00] VITALS: BP 137/59; PULSE 75; RESP 16; TEMP 36.2; O2SAT 96
[2023-11-26] MEDS: PANTOPRAZOLE DR 40 MG TABLET PO (05:59)
[2023-11-26 07:00] VITALS: O2SAT 95
[2023-11-26 08:26] VITALS: BP 133/57; PULSE 67; RESP 18; TEMP 37; O2SAT 95
[2023-11-26] MEDS: polyethylene glycoL 3350 17 GM POWD.PACK PO (09:18)
[2023-11-26] MEDS: GABAPENTIN 300 MG CAPSULE PO (09:19)
[2023-11-26] MEDS: AMLODIPINE 5 MG TABLET PO (09:19)
[2023-11-26] MEDS: PROPRANOLOL 10 MG TABLET 20 MG PO ×2 (09:20→21:13)
[2023-11-26] MEDS: CITALOPRAM 10 MG TABLET 30 MG PO (09:20)
[2023-11-26] MEDS: ASPIRIN EC 81 MG TABLET PO ×2 (09:20→21:13)
[2023-11-26] MEDS: MAGNESIUM OXIDE 400 MG TABLET PO (09:20)
[2023-11-26] MEDS: FUROSEMIDE 20 MG TABLET 10 MG PO (09:22)
--- NOTE | 2023-11-26 11:16 | PT.IPTN ---
Current Diagnoses Other fracture of left lower leg, subsequent encounter for closed fracture with delayed healing (11/24/23) Disruption of external operation (surgical) wound, not elsewhere classified, initial encounter (11/24/23) Other mechanical complication of other internal orthopedic devices, implants and grafts, initial encounter (11/24/23) Infection and inflammatory reaction due to other internal orthopedic prosthetic devices, implants and grafts, initial encounter (11/24/23) Surgery Performed Operation Date: 11/24/23 18:00 Actual Procedures p I&D, closure vs wound vac placement, ankle(Left) - Pat Heath MD Physical Therapy Treatment Note M2 PT-IP Current Condition Start: 11/25/23 08:16 Freq: NEEDED Status: Active Protocol: Document 11/25/23 09:07 MB (Rec: 11/25/23 09:37 MB [id number]) Physical Therapy Current Condition Current Condition Evaluation Date 11/25/23 Treatment Diagnosis Left ankle surgery d/t exposed hardware s/p two previous surgeries M3 PT-IP Subjective Start: 11/25/23 08:16 Freq: NEEDED Status: Active Protocol: Document 11/26/23 11:50 ZF (Rec: 11/26/23 12:06 ZF [id number]) Subjective Physical Therapy Visit Type Type Treatment Note Visit Start Time 11:16 Visit Stop Time 11:36 Number of STRIP POLISHER Visits 1 Physical Therapy Visit Comments Patient Comments Pt reports feeling frusterated that she is still in the hospital. She wants to discharge [facility]. M4 PT-IP Mobility and Gait Start: 11/25/23 08:16 Freq: NEEDED Status: Active Protocol: Document 11/26/23 11:50 ZF (Rec: 11/26/23 12:06 ZF [id number]) PT-Bed Mobility Assessment Supine to Sit Supine to Sit Independent,Standby Assistance Sit to Supine Sit to Supine Independent,Standby Assistance Scooting Scooting to Edge of Bed Independent,Standby Assistance PT-Transfer Assessment Sit to and From Stand Sit to and from Stand Standby Assistance,1 Person Assistance,Use of Upper Extremities Equipment Transfer Assistive Device Gait Belt,Front Wheeled Walker Transfers Transfer Destination Chair Transfer Technique Squat Pivot Transfer Ability Level of Assist Standby Assistance,1 Person Assistance,Use of Upper Extremities Comments Mobility Comments Pt in bed when approached for therapy, nurse from ortho enters at the same time. Pt expresses her dispeasure at still being in the hospital. Nurse reports that she has to wait for results from culture to determine if she can be discharged. Pt agreeable to continue with therapy. Supine> Sitting EOB Ind/SBA. Pt reports that she does not use 2ww, to get into WC, she just stands w/hand on WC and does a hop turn to sit SBA. Pt dems good adherance to NWB L LE. Pt propels WC in hallway x150' w /IND using BL UE. Pt able to back up and turn without assist. Dems safe use of brakes. Once back in room pt requests getting back into bed , which she does w/SBA. Pt left in bed, with Call light within reach. Gait Assessment Comments Gait Comments See mobility comments. PT-Balance Assessment Sitting Balance and Reactions Static Sitting Balance Ability Normal Dynamic Sitting Balance Ability Normal Standing Balance and Reactions Static Standing Balance Ability Good Dynamic Standing Balance Ability Good M5 PT-IP Objective Assessments Start: 11/25/23 08:16 Freq: NEEDED Status: Active Protocol: Document 11/25/23 09:07 MB (Rec: 11/25/23 09:37 MB [id number]) Orientation Orientation/Cognition Level of Alertness Alert Orientation Name,Age,Birthday,Month,Date, Year,Day of Week,Place, Situation Language Function Ability Expressive Aphasia Safety Awareness Decreased Safety Awareness Memory Description No Deficits Noted Gross Range of Motion Upper Extremity ROM Assessment Within Functional Limits Lower Extremity ROM Assessment Left Impaired Impairments Left LE in splint Strength Upper Extremity Strength Assessment Within Functional Limits Lower Extremity Strength Assessment Left Impaired Comments Strength Comments LLE in splint ankle to inferior knee. M7 PT-IP Assessment and Plan Start: 11/25/23 08:16 Freq: NEEDED Status: Active Protocol: Document 11/26/23 11:50 ZF (Rec: 11/26/23 12:06 ZF [id number]) PT Summary Assessment and Plan Potential Rehabilitation Potential Good Summary Impairments Pain,ROM,Strength,Balance,Bed Mobility,Transfers,Gait, Activity Tolerance Progress Towards Goals Progressing Toward Goals Assessment Summary Pt is SBA/IND w/bed mobility. Transfers from bed to WC w/SBA . Pt manuevers WC in room and hallway w/Ind. Pt reports a ramp at home to get into her home. Goals Bed Mobility Goal Independent Transfer Goal Independent,Front Wheeled Walker Gait Goal Independent,Front Wheel Walker Gait Distance 30 Other Goals Pt will demonstrate I w/c transfer and mobility at least 75 feet as she uses w/c also at home. Days to Meet Goals 10 Frequency of Treatment Frequency Of Treatment Once a Day Treatment Plan Physical Therapy Treatment Plan Bed Mobility Training,Transfer Training,Gait Training, Therapeutic Exercise,Balance Retraining,Discharge Planning Weight Bearing Status Weight Bearing Status Non-Weight Bearing Recommendations To Nursing Amount of Assist Needed Standby Assistance,1 Person Assist Discharge Recommendations PT Discharge Recommendations Home with Assistance,Home vs SNF Transportation Needs at Discharge Private Vehicle
--- NOTE | 2023-11-26 12:19 | CM.DPC ---
DCP Cont. Reviewed EMR and team rounds for status updates. Faxed [facility] clinicals and referral to start prior auth process for IV home infusions at d/c. Put order into the EMR for resumption of HH services through [facility]. Cultures are pending at this time. Will fax final script for ABO once this is available.
--- NOTE | 2023-11-26 16:48 | PM.PNPO.1 ---
Subjective Subjective Date Patient Seen: 11/26/23 Time Patient Seen: 12:00 Interval history: Deedee is found lying comfortably in her bed. He is just about to start physical therapy. Following complaints of pain is along the lateral malleolus which was present before surgery. Denies any nausea vomiting fever or chills. She is anxious to return back home. Exam Vital Signs (past 8 hours): - 11/26/23 10:00 Oxygen Delivery Method Room Air Oxygen Delivery Method Room Air Oxygen Flow Rate 0 Narrative Exam Narrative: Cast appears to be well-maintained. Patient is able to manipulate all toes. Capillary refill is less than 2 seconds overall 5 digits. No pain along posterior calf or thigh. Objective Labs 11/24/23 13:35 11/25/23 18:27 Labs: Laboratory Results - last 24 hr 11/25/23 18:27 Sodium 135 L Potassium 4.1 Chloride 103 Carbon Dioxide 25 BUN 21 H Creatinine 1.07 H Estimated GFR 55 L BUN/Creatinine Ratio 19.6 Glucose 125 H Calcium 9.1 PFSH Medical History (Updated 11/24/23 @ 15:58 by Pat Heath MD) Eczema Carotid artery stenosis Hearing loss Cancer GERD (gastroesophageal reflux disease) Esophageal varices Chronic kidney disease Depression DVT (deep venous thrombosis) Cirrhosis HLD (hyperlipidemia) HTN (hypertension) Fracture of left distal radius (2018) History of transcatheter aortic valve replacement (TAVR) (10/27/20) Chronic liver failure TIA (transient ischemic attack) (~2008) Osteoporosis Surgical History History of left-sided carotid endarterectomy (09/2019) Hx of tonsillectomy History of esophagogastroduodenoscopy (EGD) Hx of colonoscopy History of cataract extraction History of open reduction and internal fixation (ORIF) procedure (09/22/23) Social History household members: none Smoking Status: Never smoker alcohol intake: current Assessment & Plan Post-op Postoperative Procedures: Procedures Operation Date: 11/24/23 18:00 Actual Procedure Side Surgeon p I&D, closure vs wound vac placement, ankle Left Pat Heath MD Postoperative day: 2 Postoperative status: doing well Postoperative plan: routine post-op care Postoperative plan narrative: Patient will be on empiric vancomycin adjusted by the pharmacy until cultures return. Final results are still pending. Once cultures finalize we will tailor as appropriate with [facility] recommendations. -we have sent a referral to outpatient the patient can follow up with the [facility] as well. --patient wishes to be able to return home she has animals. She also has a lot of community support from a separate sikh that have been helpful in the past. --spoke with they are trying to coordinate with home health for IV antibiotics. They are attempting to get pre-approval with insurance. --foot plan on IV antibiotics 4-6 weeks for presumed infected hardware due to exposed orthopedic hardware and requirement to maintain hardware in place for fracture healing. -nonweightbearing on the left as much as possible at least the next 2 weeks for flap healing. -Elevate as much as possible for the 1st 2 weeks after surgery. Will follow up in Orthopedic Clinic with Dr. Heath--12/14/2023 Quality VTE Deep Vein Thrombosis/Pulmonary Embolism Present on Admission: No
[2023-11-26 18:43] LABS: Blood Urea Nitrogen 23 mg/dL (7-17); Calcium 8.8 mg/dL (8.4-10.2); Carbon Dioxide 27 mmol/L (22-32); Chloride 105 mmol/L (98-107); Estimated Glomerular Filt Rate 60 mL/min (>60); Glucose 110 mg/dL (80-110); HEMOLYSIS < 15 (0-50); Potassium 3.8 mmol/L (3.4-5.1); Sodium 138 mmol/L (137-145)
[2023-11-26] MEDS: VANCOMYCIN 1,000 MG/200 ML PIGGYBACK 200 MG IV (18:53)
[2023-11-26 20:00] VITALS: BP 132/55; PULSE 67; RESP 16; TEMP 35.9; O2SAT 93
[2023-11-26] MEDS: TRAZODONE 50 MG TABLET PO (21:13)
[2023-11-26] MEDS: ATORVASTATIN 20 MG TABLET PO (21:13)
[2023-11-26] MEDS: SODIUM CHLORIDE 0.9% FLUSH 10 ML IV (21:13)
--- NOTE | 2023-11-27 01:23 | PC.NURSE ---
Patient is alert and oriented. Breath sounds CTA but diminished with RA sat of 93%; respirations are shallow. HRR. Denied nausea. BT present and is passing flatus; refused both Senna and Colace. Denied dysuria with voiding and is getting up to BSC with 1 assist + walker as is NWB on left leg. Is able to turn herself/move in bed. Left foot/LE are splinted and wrapped with boni; CMS is intact. Refusing to wear SCD on right LE despite education and knowledge of previous DVT; educated on importance of ankle waving and doing ROM to prevent DVT and she verbalized understanding. Denied pain. Fall risk score is high and bed alarm is activated.
[2023-11-27] MEDS: PANTOPRAZOLE DR 40 MG TABLET PO (06:09)
[2023-11-27 07:00] VITALS: O2SAT 96
[2023-11-27] MEDS: FUROSEMIDE 20 MG TABLET 10 MG PO (08:42)
[2023-11-27] MEDS: ASPIRIN EC 81 MG TABLET PO ×2 (08:42→20:56)
[2023-11-27] MEDS: GABAPENTIN 300 MG CAPSULE PO (08:42)
[2023-11-27] MEDS: CITALOPRAM 10 MG TABLET 30 MG PO (08:42)
[2023-11-27] MEDS: PROPRANOLOL 10 MG TABLET 20 MG PO ×2 (08:42→20:56)
[2023-11-27] MEDS: AMLODIPINE 5 MG TABLET PO (08:42)
[2023-11-27] MEDS: MAGNESIUM OXIDE 400 MG TABLET PO (08:42)
[2023-11-27] MEDS: SODIUM CHLORIDE 0.9% FLUSH 10 ML IV ×3 (08:43→20:56)
--- NOTE | 2023-11-27 09:07 | CM.DPC ---
Addendum entered by Roya Caro R.N. 11/27/23 11:53: Spoke to Rufus, he is the pharmacist at [facility], and will be the main contact for this weekend. His phone number is: [phone]. Updated him on the Vancomycin. He is wanting to find out and confirm who will be following patient. Let him know that this DC Driller Machine will call the physician business office assistant to see if she can confirm. Called MARILUZ Flores, asked her if she knew who was following. Stated, what do you mean, we still have to have the final cultures?. Let her know that [facility] needs this information in order to see patient. She indicated that Dr. Heath is consulting with [facility]. This was all the information that this DC Driller Machine received, although cultures state no growth. Called Rufus back at [facility] and let him know that Dr. Heath is consulting with [facility]. Addendum entered by Roya Caro R.N. 11/27/23 10:19: Discussed patient during team rounds, culture notes no growth. Patient still will go home on IV ABO secondary to hardware to ankle. Patient is due for her Vanco trough this pm, currently she is on 1gm q 24 hours, which could change. Was also informed that ortho is consulting with infectious disease, attempted to speak with MARILUZ Herndon, to confirm, but she was busy with patient. At this time, will update [facility], could be in place for tomorrow once trough is in. Original Note: DCP Cont: Left a message with [facility] answering service regarding getting patient set up with home infusions. They will have the pharmacist or user experience team lead call back. Wanted to inquire if this can be set up this weekend, once the cultures are final, if needed, and if they have gotten the insurance auth, since patient does have [employer]. The plan is for patient to go home with [facility], and will be staying with friends, declined assisted services. Taina from [email or web address] just called back. Indicated that they could run this through her insurance today, and have an answer. Taina is the pharmacist this weekend. Her number is: [phone]. Asked her if she has anyone available to do the teaching and for the supplies, indicated that they do not have anyone today, but should tomorrow, may not have anyone Wednesday. She also would need to see who will follow, if ortho will verus primary care provider, will also attempt to get this information today. P: DCP to work on home plan with [facility], will need to know which medications that patient will be on once the final cultures are in. Roya Caro RN/Endoscopic Technician
--- NOTE | 2023-11-27 09:21 | PM.PNPO.1 ---
Subjective Subjective Date Patient Seen: 11/27/23 Time Patient Seen: 09:21 Interval history: Pt sitting up in bed, very anxious to go home, hoping today. Explained that we are still waiting on final cultures in order to send her home with appropriate antibiotics. Pt interviewed and examined with Dr Grasia. Exam Vital Signs (past 8 hours): Oxygen Delivery Method Room Air Oxygen Flow Rate 0 Narrative Exam Narrative: Pt able to wiggle toes, sensation to touch intact in toes. Splint is intact and comfortable. Objective Labs 11/24/23 13:35 11/26/23 18:28 Labs: Laboratory Results - last 24 hr 11/26/23 18:28 Sodium 138 Potassium 3.8 Chloride 105 Carbon Dioxide 27 BUN 23 H Creatinine 1.00 Estimated GFR 60 BUN/Creatinine Ratio 23.0 H Glucose 110 Calcium 8.8 PFSH Medical History (Updated 11/24/23 @ 15:58 by Pat Heath MD) Eczema Carotid artery stenosis Hearing loss Cancer GERD (gastroesophageal reflux disease) Esophageal varices Chronic kidney disease Depression DVT (deep venous thrombosis) Cirrhosis HLD (hyperlipidemia) HTN (hypertension) Fracture of left distal radius (2018) History of transcatheter aortic valve replacement (TAVR) (10/27/20) Chronic liver failure TIA (transient ischemic attack) (~2008) Osteoporosis Surgical History History of left-sided carotid endarterectomy (09/2019) Hx of tonsillectomy History of esophagogastroduodenoscopy (EGD) Hx of colonoscopy History of cataract extraction History of open reduction and internal fixation (ORIF) procedure (09/22/23) Social History household members: none Smoking Status: Never smoker alcohol intake: current Assessment & Plan Post-op Assessment and plan (1) 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 Pt is currently in a splint with a large amount of bulky padding. She has an appointment scheduled w/ Dr Heath on 11/13, at which point the splint will be removed and her wound will be evaluated. She should not have the splint removed until that time and should contact our office if it gets wet before her appointment. She is currently on IV vancomycin as her wound grew GPC. Aerobic cultures are still pending. She does have a PICC line in place. Plan at this time is 4-6 weeks of IV abx for presumed infected hardware. Pt has been referred to [facility]; she can follow up with them after discharge. During her stay, she should continue to work w/ PT. She is to remain NWB on her left leg until her f/u appt w/ Dr Heath, at which time her weightbearing status will be re-evaluated. She is currently nonweightbearing in order to give her flap the best chance of healing; less so for her ankle fracture. Postoperative Procedures: Procedures Operation Date: 11/24/23 18:00 Actual Procedure Side Surgeon p I&D, closure vs wound vac placement, ankle Left Pat Heath MD Postoperative day: 3 Quality VTE Deep Vein Thrombosis/Pulmonary Embolism Present on Admission: No
[2023-11-27 09:54] VITALS: BP 141/101; PULSE 63; RESP 18; TEMP 36.6; O2SAT 96
--- NOTE | 2023-11-27 11:46 | PT.IPTN ---
Current Diagnoses Other fracture of left lower leg, subsequent encounter for closed fracture with delayed healing (11/24/23) Disruption of external operation (surgical) wound, not elsewhere classified, initial encounter (11/24/23) Other mechanical complication of other internal orthopedic devices, implants and grafts, initial encounter (11/24/23) Infection and inflammatory reaction due to other internal orthopedic prosthetic devices, implants and grafts, initial encounter (11/24/23) Surgery Performed Operation Date: 11/24/23 18:00 Actual Procedures p I&D, closure vs wound vac placement, ankle(Left) - Pat Heath MD Physical Therapy Treatment Note M2 PT-IP Current Condition Start: 11/25/23 08:16 Freq: NEEDED Status: Active Protocol: Document 11/25/23 09:07 MB (Rec: 11/25/23 09:37 MB [id number]) Physical Therapy Current Condition Current Condition Evaluation Date 11/25/23 Treatment Diagnosis Left ankle surgery d/t exposed hardware s/p two previous surgeries M3 PT-IP Subjective Start: 11/25/23 08:16 Freq: NEEDED Status: Active Protocol: Document 11/27/23 12:54 ZF (Rec: 11/27/23 13:20 ZF [id number]) Subjective Physical Therapy Visit Type Type Treatment Note Visit Start Time 11:46 Visit Stop Time 12:12 Number of FLORAL ASSOCIATE Visits 2 Physical Therapy Visit Comments Patient Comments Pt agreeable to therapy. Therapy Pain Assessment Pain When Pain Assessed At Rest Pain Present Pain Present Pain Reported M4 PT-IP Mobility and Gait Start: 11/25/23 08:16 Freq: NEEDED Status: Active Protocol: Document 11/27/23 12:54 ZF (Rec: 11/27/23 13:20 ZF [id number]) PT-Bed Mobility Assessment Supine to Sit Supine to Sit Independent,Standby Assistance Sit to Supine Sit to Supine Independent,Standby Assistance Scooting Scooting to Edge of Bed Independent,Standby Assistance PT-Transfer Assessment Sit to and From Stand Sit to and from Stand Standby Assistance,1 Person Assistance,Use of Upper Extremities Equipment Transfer Assistive Device Gait Belt,Front Wheeled Walker Transfers Transfer Destination Chair Transfer Technique Stand Step Pivot Transfer Ability Level of Assist Standby Assistance,1 Person Assistance,Use of Upper Extremities Comments Mobility Comments Pt when approached for therapy , agreeable to participate. Supine>Sitting EOB, Pt is ind/ SBA. Pt amb ~40' using hopping w/2ww, SBA/CGA. Pt dems good adherance to NWB precaution. Seated LE TE to improve strength and tolerance for activity to include ankle pumps R LE only, Hip flexion, Knee Ext, hip add w/pillow 2x10 reps. Seated thoracic ext and flexion, seated trunk flexion, seated UE abd x10 reps w/cues for sinking breath to movement. Pt requests getting back into bed after session, lunch tray provided, call light in reach. Gait Assessment Gait Gait Assistance Required: Standby Assistance,Contact Guard Assist,1 Person Assist Distance (Feet) 40 Able to Maintain Weight Bearing Status Yes During Gait Assistive Devices Assistive Device Gait Belt,Front Wheeled Walker Comments Gait Comments See mobility comments. PT-Balance Assessment Sitting Balance and Reactions Static Sitting Balance Ability Normal Dynamic Sitting Balance Ability Normal Standing Balance and Reactions Static Standing Balance Ability Good Dynamic Standing Balance Ability Good M5 PT-IP Objective Assessments Start: 11/25/23 08:16 Freq: NEEDED Status: Active Protocol: Document 11/25/23 09:07 MB (Rec: 11/25/23 09:37 MB [id number]) Orientation Orientation/Cognition Level of Alertness Alert Orientation Name,Age,Birthday,Month,Date, Year,Day of Week,Place, Situation Language Function Ability Expressive Aphasia Safety Awareness Decreased Safety Awareness Memory Description No Deficits Noted Gross Range of Motion Upper Extremity ROM Assessment Within Functional Limits Lower Extremity ROM Assessment Left Impaired Impairments Left LE in splint Strength Upper Extremity Strength Assessment Within Functional Limits Lower Extremity Strength Assessment Left Impaired Comments Strength Comments LLE in splint ankle to inferior knee. M7 PT-IP Assessment and Plan Start: 11/25/23 08:16 Freq: NEEDED Status: Active Protocol: Document 11/27/23 12:54 ZF (Rec: 11/27/23 13:20 ZF [id number]) PT Summary Assessment and Plan Potential Rehabilitation Potential Good Summary Impairments Pain,ROM,Strength,Balance,Bed Mobility,Transfers,Gait, Activity Tolerance Progress Towards Goals Progressing Toward Goals Assessment Summary Pt adheres to NWB precautions while hopping w/2ww short distances around room, requires CGA/SBA. Pt is SBA/ IND w/bed mobility. Recommending DC home with assist. Goals Bed Mobility Goal Independent Transfer Goal Independent,Front Wheeled Walker Gait Goal Independent,Front Wheel Walker Gait Distance 30 Other Goals Pt will demonstrate I w/c transfer and mobility at least 75 feet as she uses w/c also at home. Days to Meet Goals 10 Frequency of Treatment Frequency Of Treatment Once a Day Treatment Plan Physical Therapy Treatment Plan Bed Mobility Training,Transfer Training,Gait Training, Therapeutic Exercise,Balance Retraining,Discharge Planning Weight Bearing Status Weight Bearing Status Non-Weight Bearing Recommendations To Nursing Amount of Assist Needed Standby Assistance Discharge Recommendations PT Discharge Recommendations Home with Assistance,Home vs SNF Transportation Needs at Discharge Private Vehicle
[2023-11-27 18:57] LABS: BUN Creatinine Ratio 21.4 (6-22); Blood Urea Nitrogen 27 mg/dL (7-17); Calcium 8.9 mg/dL (8.4-10.2); Carbon Dioxide 30 mmol/L (22-32); Chloride 103 mmol/L (98-107); Estimated Glomerular Filt Rate 45 mL/min (>60); Glucose 90 mg/dL (80-110); HEMOLYSIS < 15 (0-50); Potassium 3.9 mmol/L (3.4-5.1); Sodium 139 mmol/L (137-145)
[2023-11-27 19:00] VITALS: O2SAT 96
[2023-11-27 19:16] LABS: Vancomycin Trough 16.5 ug/mL (10-20)
[2023-11-27] MEDS: VANCOMYCIN TROUGH 1 REQUEST MISC (19:37)
[2023-11-27] MEDS: VANCOMYCIN 1,000 MG/200 ML PIGGYBACK 200 MG IV (19:37)
[2023-11-27 20:00] VITALS: BP 118/38; PULSE 63; RESP 16; TEMP 36.9; O2SAT 96
[2023-11-27] MEDS: ATORVASTATIN 20 MG TABLET PO (20:56)
[2023-11-27] MEDS: TRAZODONE 50 MG TABLET PO (20:56)
[2023-11-27] MEDS: VANCOMYCIN PEAK 1 REQUEST MISC (22:02)
[2023-11-27 22:40] LABS: Vancomycin Peak 32.3 ug/mL (20-40)
--- NOTE | 2023-11-27 22:55 | PC.NURSE ---
Patient is alert and oriented but disgusted with having to stay another night while MD awaits wound culture results. Breath sounds CTA but takes shallow breaths; RA sat 96%. HRR but has low DBP at 38 although MAP > 60. Denied nausea. BT present and is passing flatus but has not had BM since 11/24; continued to refuse colace and senna tonight. Voiding on toilet and denies dysuria. Is able to move herself in bed and gets out of bed with SBA; transfers bed to wheelchair and wheelchair to toilet maintaining NWB status on left LE. Splint + boni wrap to left LE is CDI and has + CMS. Denied pain. Remains on contact isolation until wound culture results are final. History of DVT but continues to decline use of SCD stating I don't think I need it; reeducated on need to move LE frequently as DVT prevention and she verbalizes understanding. Fall risk score is high and bed alarm is activated.
[2023-11-28] MEDS: PANTOPRAZOLE DR 40 MG TABLET PO (06:04)
--- NOTE | 2023-11-28 06:58 | PM.PNPO.1 ---
Subjective Subjective Interval history: s/p I&D and rotational flap for exposed HWR ankle-- culture still not final and no UW PCR result yet-- GPCs on grams stain. has been on vanc- q24 does- bump in Cr today-- therapeutic level -- will switch to 1g Ceftriaxone q 24hrs and dc with this -- recheck BMP in 2 days and then CBC and BMP weekly-- plan 6 weeks therapy --if PCR /cultures finial may need adjustment but can d/c today with ceftriaxone and h/h Exam Vital Signs (past 8 hours): Oxygen Delivery Method Room Air Oxygen Flow Rate 0 Objective Labs 11/24/23 13:35 11/27/23 18:35 Labs: Laboratory Results - last 24 hr 11/27/23 11/27/23 18:35 22:05 Sodium 139 Potassium 3.9 Chloride 103 Carbon Dioxide 30 BUN 27 H Creatinine 1.26 H Estimated GFR 45 L BUN/Creatinine Ratio 21.4 Glucose 90 Calcium 8.9 Vancomycin Peak 32.3 Vancomycin Trough 16.5 PFSH Medical History (Updated 11/24/23 @ 15:58 by Pat Heath MD) Eczema Carotid artery stenosis Hearing loss Cancer GERD (gastroesophageal reflux disease) Esophageal varices Chronic kidney disease Depression DVT (deep venous thrombosis) Cirrhosis HLD (hyperlipidemia) HTN (hypertension) Fracture of left distal radius (2018) History of transcatheter aortic valve replacement (TAVR) (10/27/20) Chronic liver failure TIA (transient ischemic attack) (~2008) Osteoporosis Surgical History History of left-sided carotid endarterectomy (09/2019) Hx of tonsillectomy History of esophagogastroduodenoscopy (EGD) Hx of colonoscopy History of cataract extraction History of open reduction and internal fixation (ORIF) procedure (09/22/23) Social History household members: none Smoking Status: Never smoker alcohol intake: current Assessment & Plan Post-op Postoperative Procedures: Procedures Operation Date: 11/24/23 18:00 Actual Procedure Side Surgeon p I&D, closure vs wound vac placement, ankle Left Pat Heath MD Quality VTE Deep Vein Thrombosis/Pulmonary Embolism Present on Admission: No
[2023-11-28 08:00] VITALS: O2SAT 96
[2023-11-28] MEDS: PROPRANOLOL 10 MG TABLET 20 MG PO (08:44)
[2023-11-28] MEDS: GABAPENTIN 300 MG CAPSULE PO (08:44)
[2023-11-28] MEDS: MAGNESIUM OXIDE 400 MG TABLET PO (08:44)
[2023-11-28] MEDS: FUROSEMIDE 20 MG TABLET 10 MG PO (08:44)
[2023-11-28] MEDS: ASPIRIN EC 81 MG TABLET PO (08:44)
[2023-11-28] MEDS: CITALOPRAM 10 MG TABLET 30 MG PO (08:44)
[2023-11-28] MEDS: AMLODIPINE 5 MG TABLET PO (08:44)
[2023-11-28] MEDS: cefTRIAXone 1,000 MG in SODIUM CHLORIDE 0.9% 100 ML 200 MG IV (08:45)
[2023-11-28] MEDS: SODIUM CHLORIDE 0.9% FLUSH 10 ML IV (09:00)
[2023-11-28 09:04] VITALS: BP 144/46; PULSE 66; RESP 18; TEMP 36.6; O2SAT 97
--- NOTE | 2023-11-28 11:54 | PM.PNPO.1 ---
Subjective Subjective Interval history: She notes she is doing reasonably well and she feels like she is ready to go home. Her definitive cultures are still pending. A discussion with Dr. Salinas and ceftriaxone is the plan for discharge IV. Antibiotics have been arranged through an infusion service. Exam Vital Signs (past 8 hours): - 11/28/23 08:00 11/28/23 09:04 Temperature 97.8 F Pulse Rate 66 Respiratory Rate 18 Blood Pressure 144/46 H Pulse Oximetry 96 97 Oxygen Delivery Method Room Air Oxygen Flow Rate 0 Narrative Exam Narrative: Her splint is in good repair she is able to fire toe flexors and extensors she has good mobility she is alert she is oriented Objective Labs 11/24/23 13:35 11/27/23 18:35 Labs: Laboratory Results - last 24 hr 11/27/23 11/27/23 18:35 22:05 Sodium 139 Potassium 3.9 Chloride 103 Carbon Dioxide 30 BUN 27 H Creatinine 1.26 H Estimated GFR 45 L BUN/Creatinine Ratio 21.4 Glucose 90 Calcium 8.9 Vancomycin Peak 32.3 Vancomycin Trough 16.5 PFSH Medical History (Updated 11/24/23 @ 15:58 by Pat Heath MD) Eczema Carotid artery stenosis Hearing loss Cancer GERD (gastroesophageal reflux disease) Esophageal varices Chronic kidney disease Depression DVT (deep venous thrombosis) Cirrhosis HLD (hyperlipidemia) HTN (hypertension) Fracture of left distal radius (2018) History of transcatheter aortic valve replacement (TAVR) (10/27/20) Chronic liver failure TIA (transient ischemic attack) (~2008) Osteoporosis Surgical History History of left-sided carotid endarterectomy (09/2019) Hx of tonsillectomy History of esophagogastroduodenoscopy (EGD) Hx of colonoscopy History of cataract extraction History of open reduction and internal fixation (ORIF) procedure (09/22/23) Social History household members: none Smoking Status: Never smoker alcohol intake: current Assessment & Plan Post-op Postoperative Procedures: Procedures Operation Date: 11/24/23 18:00 Actual Procedure Side Surgeon p I&D, closure vs wound vac placement, ankle Left Pat Heath MD Postoperative plan narrative: She is doing well after repeat irrigation and debridement and rotational flap placement for a wound after an ankle fracture. The plan is to continue her on IV antibiotics at home. She will keep her previously scheduled follow up with Dr. Salinas. Quality VTE Deep Vein Thrombosis/Pulmonary Embolism Present on Admission: No
--- NOTE | 2023-11-28 12:10 | PT.IPTN ---
Current Diagnoses Other fracture of left lower leg, subsequent encounter for closed fracture with delayed healing (11/24/23) Disruption of external operation (surgical) wound, not elsewhere classified, initial encounter (11/24/23) Other mechanical complication of other internal orthopedic devices, implants and grafts, initial encounter (11/24/23) Infection and inflammatory reaction due to other internal orthopedic prosthetic devices, implants and grafts, initial encounter (11/24/23) Surgery Performed Operation Date: 11/24/23 18:00 Actual Procedures p I&D, closure vs wound vac placement, ankle(Left) - Pat Heath MD Physical Therapy Treatment Note M2 PT-IP Current Condition Start: 11/25/23 08:16 Freq: NEEDED Status: Active Protocol: Document 11/25/23 09:07 MB (Rec: 11/25/23 09:37 MB [id number]) Physical Therapy Current Condition Current Condition Evaluation Date 11/25/23 Treatment Diagnosis Left ankle surgery d/t exposed hardware s/p two previous surgeries M3 PT-IP Subjective Start: 11/25/23 08:16 Freq: NEEDED Status: Active Protocol: Document 11/28/23 12:07 SAK (Rec: 11/28/23 12:10 SAK [id number]) Subjective Physical Therapy Visit Type Type Treatment Note Visit Start Time 11:30 Visit Stop Time 11:50 Number of [employer] INSTALLER Visits 0 Physical Therapy Visit Comments Patient Comments Pt agreeable to therapy. M4 PT-IP Mobility and Gait Start: 11/25/23 08:16 Freq: NEEDED Status: Active Protocol: Document 11/28/23 12:07 SAK (Rec: 11/28/23 12:10 SAK [id number]) PT-Bed Mobility Assessment Supine to Sit Supine to Sit Independent,Standby Assistance Sit to Supine Sit to Supine Independent,Standby Assistance Scooting Scooting to Edge of Bed Independent,Standby Assistance Scooting Up and Down in Bed Independent PT-Transfer Assessment Sit to and From Stand Sit to and from Stand Standby Assistance,1 Person Assistance,Use of Upper Extremities Equipment Transfer Assistive Device Gait Belt,Front Wheeled Walker Transfers Transfer Destination Chair Transfer Technique Stand Step Pivot Transfer Ability Level of Assist Standby Assistance,1 Person Assistance,Use of Upper Extremities Comments Mobility Comments Patient agreeable to PT. Supine to sit EOB SBA. Ther ex: ankle pumps R, LAQ, marching, seated cat/cow, shld ab x 10 reps ea. Patient ambulated 40 ft with FWW, NWB left LE with SBA. Gait Assessment Gait Gait Assistance Required: Standby Assistance,Contact Guard Assist,1 Person Assist Distance (Feet) 40 Able to Maintain Weight Bearing Status Yes During Gait Assistive Devices Assistive Device Gait Belt,Front Wheeled Walker Comments Gait Comments See mobility comments. PT-Balance Assessment Sitting Balance and Reactions Static Sitting Balance Ability Normal Dynamic Sitting Balance Ability Normal Standing Balance and Reactions Static Standing Balance Ability Good Dynamic Standing Balance Ability Good Device Used RW M5 PT-IP Objective Assessments Start: 11/25/23 08:16 Freq: NEEDED Status: Active Protocol: Document 11/25/23 09:07 MB (Rec: 11/25/23 09:37 MB [id number]) Orientation Orientation/Cognition Level of Alertness Alert Orientation Name,Age,Birthday,Month,Date, Year,Day of Week,Place, Situation Language Function Ability Expressive Aphasia Safety Awareness Decreased Safety Awareness Memory Description No Deficits Noted Gross Range of Motion Upper Extremity ROM Assessment Within Functional Limits Lower Extremity ROM Assessment Left Impaired Impairments Left LE in splint Strength Upper Extremity Strength Assessment Within Functional Limits Lower Extremity Strength Assessment Left Impaired Comments Strength Comments LLE in splint ankle to inferior knee. M7 PT-IP Assessment and Plan Start: 11/25/23 08:16 Freq: NEEDED Status: Active Protocol: Document 11/28/23 12:07 SAK (Rec: 11/28/23 12:10 SAK [id number]) PT Summary Assessment and Plan Potential Rehabilitation Potential Good Summary Impairments Pain,ROM,Strength,Balance,Bed Mobility,Transfers,Gait, Activity Tolerance Progress Towards Goals Progressing Toward Goals Assessment Summary Pt adheres to NWB precautions while hopping w/2ww short distances around room, requires CGA/SBA. Pt is SBA/ IND w/bed mobility. Recommending DC home with assist. Goals Bed Mobility Goal Independent Transfer Goal Independent,Front Wheeled Walker Gait Goal Independent,Front Wheel Walker Gait Distance 30 Other Goals Pt will demonstrate I w/c transfer and mobility at least 75 feet as she uses w/c also at home. Days to Meet Goals 10 Frequency of Treatment Frequency Of Treatment Once a Day Treatment Plan Physical Therapy Treatment Plan Bed Mobility Training,Transfer Training,Gait Training, Therapeutic Exercise,Balance Retraining,Discharge Planning Weight Bearing Status Weight Bearing Status Non-Weight Bearing Recommendations To Nursing Amount of Assist Needed Standby Assistance Discharge Recommendations PT Discharge Recommendations Home with Assistance,Home vs SNF Transportation Needs at Discharge Private Vehicle
--- NOTE | 2023-11-28 12:51 | PC.NURSE ---
Day shift: Discharge instructions gone over with patient. Education given about PICC line, timing of dressing changes, s/sx to watch for. Pt stated understanding, all questions answered. MEDARDO Sun faxed hard script for IV ceftriaxone to infusion services, who will be coming to patient's house for daily infusions and PICC line care. All belongings with patient. No PIVs or tele. This RN escorted patient via patient's own wheelchair to exit, where her friend from [employer] picked her up.
--- NOTE | 2023-11-28 13:06 | CM.DPNOTE ---
DCP Note TRAFFIC TECHNICIAN reviewed EMR. Per Sampson PN, pt to switch to ceftriaxone Q24 1g for 6 weeks, followed by Dr. Hill. Per RN, cultures not growing anything at this time. Per rounding ortho Dr Kaplan, pt cleared to dc home today with [facility] and support. TRAFFIC TECHNICIAN spoke with Clara at [facility]. Need resumption order and dc summary. TRAFFIC TECHNICIAN faxed resumption order, dc summary pending. TRAFFIC TECHNICIAN spoke with Rufus at [facility] (p [phone]). Rufus reports needing PICC report, order, recent PNs, labs, and time of pt's dose today. TRAFFIC TECHNICIAN faxed necessary information (f [phone]) as soon as made available. TRAFFIC TECHNICIAN gave hard script for abx to RN to give to pt in dc pwk. TRAFFIC TECHNICIAN entered room and introduced self and role. Pt resting in bed. Pt reports eager to dc home. Pt agreeable to [facility] and [facility], reports she's spoke with [facility] over the phone. Pt has lots of local friends to support but lives alone, pt getting ride from friend today after they get out of [employer]. Plan: pt to dc home today with friend to transport. [facility] and [facility] to follow. CM team will continue to follow as needed. MEDARDO Menjivar
== END 2023-11-28 13:24 | disposition home health service (06) | DRG 464 ==
LOC: OR 12:40 → AC 13:14
PROVIDERS: Admitting Provider Orthopaedic Surgery Foot and Ankle Surgery; Family Provider Family Medicine; PCP Family Medicine; Referring Provider Orthopaedic Surgery Foot and Ankle Surgery; Visit Provider Orthopaedic Surgery Foot and Ankle Surgery
PROC: 0JXR0ZB Transfer Left Foot Subcutaneous Tissue and Fascia with Skin and Subcutaneous Tissue, Open Approach (ICD-10-PCS; principal; 2023-11-24 18:00)
DX: T84.59XA Infection and inflammatory reaction due to other internal joint prosthesis, initial encounter (principal); T81.31XA Disruption of external operation (surgical) wound, not elsewhere classified, initial encounter; S82.852G Displaced trimalleolar fracture of left lower leg, subsequent encounter for closed fracture with delayed healing; E78.5 Hyperlipidemia, unspecified; K21.9 Gastro-esophageal reflux disease without esophagitis; I10 Essential (primary) hypertension; X58.XXXD Exposure to other specified factors, subsequent encounter
CPT/HCPCS: 36415; 36573; 80048; 80053; 80202; 85025; 85651; 86140; 87070; 87075; 87205; 87801; 97110; 97116; 97161; 97530; J0171; J0690; J0696; J1100; J1642; J2405; J2704; J3010

== ENCOUNTER → 2023-12-09 20:43 | Outpatient (ROUT) | payer OTHER, SELFPAY ==
[2023-11-24 13:24] VITALS: BMI 22.6
[2023-12-09 20:54] LABS: Add Manual Diff / Slide Review NO; Basophils Absolute Auto 100 /uL (0-100); Basophils Percent Auto 0.7 % (0-2); Eosinophils Absolute Auto 200 /uL (0-450); Eosinophils Percent Auto 2.9 % (2-4); Hematocrit 35.5 % (36-46); Hemoglobin 11.6 g/dL (12.0-16.0); Lymphocytes Absolute Auto 1500 /uL (1100-4500); Lymphocytes Percent Auto 19.7 % (25-40); Mean Corpuscular HGB Conc 32.6 % (30-36); Mean Corpuscular Hemoglobin 30.7 PG (26-34); Mean Corpuscular Volume 94.1 fL (80-100); Monocytes Absolute Auto 600 /uL (0-900); Monocytes Percent Auto 8.6 % (3-14); Neutrophils Absolute Auto 5000 /uL (1500-7000); Neutrophils Percent Auto 68.1 % (50-75); Platelet Count 207 X10^3/uL (150-400); Red Blood Cell Count 3.77 X10^6/uL (4.0-5.2); Red Cell Distribution Width 14.9 % (11.6-14.8); White Blood Cell Count 7.4 X10^3/uL (4.5-11.0)
[2023-12-09 20:58] LABS: Alanine Aminotransferase 21 IU/L (<35); Albumin 3.4 g/dL (3.5-5.0); Albumin Globulin Ratio 1.2 (1.0-2.8); Alkaline Phosphatase 74 U/L (38-126); Aspartate Aminotransferase 32 IU/L (14-36); BUN Creatinine Ratio 12.5 (6-22); Bilirubin Total 0.5 mg/dL (0.2-1.3); Blood Urea Nitrogen 13 mg/dL (7-17); C-Reactive Protein Quant 2.8 mg/dL (<1.0); Calcium 8.7 mg/dL (8.4-10.2); Carbon Dioxide 24 mmol/L (22-32); Chloride 104 mmol/L (98-107); Estimated Glomerular Filt Rate 57 mL/min (>60); Globulin 2.9 g/dL (1.7-4.1); Glucose 97 mg/dL (80-110); HEMOLYSIS 34 (0-50); Potassium 4.2 mmol/L (3.4-5.1); Sodium 138 mmol/L (137-145); Total Protein 6.3 g/dL (6.3-8.2)
== END ==
PROVIDERS: Family Provider Family Medicine; PCP Family Medicine; Visit Provider Orthopaedic Surgery Foot and Ankle Surgery
DX: T84.7XXA Infection and inflammatory reaction due to other internal orthopedic prosthetic devices, implants and grafts, initial encounter (principal)
CPT/HCPCS: 80053; 85025; 86140

== ENCOUNTER → 2023-12-17 18:11 | Outpatient (ROUT) | payer OTHER, SELFPAY ==
[2023-11-24 13:24] VITALS: BMI 22.6
[2023-12-17 18:45] LABS: Add Manual Diff / Slide Review NO; Basophils Absolute Auto 100 /uL (0-100); Basophils Percent Auto 1.2 % (0-2); Eosinophils Absolute Auto 300 /uL (0-450); Eosinophils Percent Auto 3.7 % (2-4); Hematocrit 37.3 % (36-46); Hemoglobin 12.2 g/dL (12.0-16.0); Lymphocytes Absolute Auto 1400 /uL (1100-4500); Lymphocytes Percent Auto 19.4 % (25-40); Mean Corpuscular HGB Conc 32.7 % (30-36); Mean Corpuscular Hemoglobin 30.5 PG (26-34); Mean Corpuscular Volume 93.3 fL (80-100); Monocytes Absolute Auto 500 /uL (0-900); Monocytes Percent Auto 6.8 % (3-14); Neutrophils Absolute Auto 4900 /uL (1500-7000); Neutrophils Percent Auto 68.9 % (50-75); Platelet Count 220 X10^3/uL (150-400); Red Cell Distribution Width 14.8 % (11.6-14.8); White Blood Cell Count 7.1 X10^3/uL (4.5-11.0)
[2023-12-17 18:46] LABS: Alanine Aminotransferase 17 IU/L (<35); Albumin 3.8 g/dL (3.5-5.0); Albumin Globulin Ratio 1.2 (1.0-2.8); Alkaline Phosphatase 61 U/L (38-126); Aspartate Aminotransferase 39 IU/L (14-36); BUN Creatinine Ratio 14.4 (6-22); Bilirubin Total 0.5 mg/dL (0.2-1.3); Blood Urea Nitrogen 15 mg/dL (7-17); Calcium 8.7 mg/dL (8.4-10.2); Carbon Dioxide 26 mmol/L (22-32); Chloride 100 mmol/L (98-107); Estimated Glomerular Filt Rate 57 mL/min (>60); Globulin 3.2 g/dL (1.7-4.1); Glucose 66 mg/dL (80-110); HEMOLYSIS < 15 (0-50); Potassium 3.7 mmol/L (3.4-5.1); Sodium 137 mmol/L (137-145)
[2023-12-20 11:16] LABS: C-Reactive Protein Quant 1.1 mg/dL (<1.0)
== END ==
PROVIDERS: Family Provider Family Medicine; PCP Family Medicine; Visit Provider Orthopaedic Surgery Foot and Ankle Surgery
DX: T84.7XXA Infection and inflammatory reaction due to other internal orthopedic prosthetic devices, implants and grafts, initial encounter (principal)
CPT/HCPCS: 80053; 85025; 86140

== ENCOUNTER → 2024-01-11 09:28 | Outpatient (CLI) | payer OTHER, SELFPAY ==
[2023-11-24 13:24] VITALS: BMI 22.6
[2024-01-11 11:00] LABS: BUN Creatinine Ratio 15.1 (6-22); Blood Urea Nitrogen 16 mg/dL (7-17); Calcium 9.1 mg/dL (8.4-10.2); Carbon Dioxide 29 mmol/L (22-32); Chloride 106 mmol/L (98-107); Estimated Glomerular Filt Rate 56 mL/min (>60); Glucose 83 mg/dL (80-110); HEMOLYSIS < 15 (0-50); Potassium 4.2 mmol/L (3.4-5.1); Sodium 138 mmol/L (137-145)
== END ==
PROVIDERS: Family Provider Family Medicine; PCP Family Medicine; Referring Provider Internal Medicine Infectious Disease; Visit Provider Internal Medicine Infectious Disease
DX: M86.40 Chronic osteomyelitis with draining sinus, unspecified site (principal)
CPT/HCPCS: 36415; 80048

== ENCOUNTER → 2024-01-21 08:47 | Outpatient (CLI) | payer OTHER, SELFPAY ==
[2023-11-24 13:24] VITALS: BMI 22.6
[2024-01-21 10:03] LABS: Add Manual Diff / Slide Review NO; Basophils Absolute Auto 0 /uL (0-100); Basophils Percent Auto 0.7 % (0-2); Eosinophils Absolute Auto 200 /uL (0-450); Eosinophils Percent Auto 4.3 % (2-4); Hemoglobin 13.4 g/dL (12.0-16.0); Lymphocytes Absolute Auto 1100 /uL (1100-4500); Lymphocytes Percent Auto 22.8 % (25-40); Mean Corpuscular HGB Conc 33.6 % (30-36); Mean Corpuscular Hemoglobin 31.1 PG (26-34); Mean Corpuscular Volume 92.6 fL (80-100); Monocytes Absolute Auto 400 /uL (0-900); Monocytes Percent Auto 8.6 % (3-14); Neutrophils Absolute Auto 3200 /uL (1500-7000); Neutrophils Percent Auto 63.6 % (50-75); Platelet Count 171 X10^3/uL (150-400); Red Blood Cell Count 4.32 X10^6/uL (4.0-5.2); Red Cell Distribution Width 15.6 % (11.6-14.8)
[2024-01-21 10:22] LABS: BUN Creatinine Ratio 10.9 (6-22); Blood Urea Nitrogen 10 mg/dL (7-17); Calcium 8.9 mg/dL (8.4-10.2); Carbon Dioxide 27 mmol/L (22-32); Chloride 107 mmol/L (98-107); Estimated Glomerular Filt Rate > 60 mL/min (>60); Glucose 86 mg/dL (80-110); HEMOLYSIS < 15 (0-50); Potassium 4.2 mmol/L (3.4-5.1); Sodium 138 mmol/L (137-145)
== END ==
PROVIDERS: Family Provider Family Medicine; PCP Family Medicine; Referring Provider Internal Medicine Infectious Disease; Visit Provider Internal Medicine Infectious Disease
DX: M86.40 Chronic osteomyelitis with draining sinus, unspecified site (principal)
CPT/HCPCS: 36415; 80048; 85025

== ENCOUNTER → 2024-01-28 08:31 | Outpatient (CLI) | payer OTHER, SELFPAY ==
[2023-11-24 13:24] VITALS: BMI 22.6
[2024-01-28 10:41] LABS: BUN Creatinine Ratio 23.7 (6-22); Blood Urea Nitrogen 27 mg/dL (7-17); Calcium 9.1 mg/dL (8.4-10.2); Carbon Dioxide 30 mmol/L (22-32); Chloride 103 mmol/L (98-107); Estimated Glomerular Filt Rate 51 mL/min (>60); Glucose 77 mg/dL (80-110); HEMOLYSIS 17 (0-50); Potassium 4.6 mmol/L (3.4-5.1); Sodium 137 mmol/L (137-145)
== END ==
PROVIDERS: Family Provider Family Medicine; PCP Family Medicine; Referring Provider Internal Medicine Infectious Disease; Visit Provider Internal Medicine Infectious Disease
DX: M86.40 Chronic osteomyelitis with draining sinus, unspecified site (principal)
CPT/HCPCS: 36415; 80048